=== PATIENT | male | born 1945 | race Caucasian/White ===

== ENCOUNTER 2016-10-16 09:11 | Outpatient (CLI) | payer OTHER | END 2016-10-16 09:12 | disposition home or self-care (01) | DX: I50.9 Heart failure, unspecified (principal); E66.9 Obesity, unspecified ==

== ENCOUNTER 2016-12-04 10:11 | Outpatient (CLI) | payer OTHER | END 2016-12-04 10:12 | disposition home or self-care (01) | DX: I50.9 Heart failure, unspecified (principal); E66.9 Obesity, unspecified ==

== ENCOUNTER 2017-01-09 10:56 | Outpatient (CLI) | payer OTHER | END 2017-01-09 10:57 | disposition home or self-care (01) | DX: I50.9 Heart failure, unspecified (principal); E66.9 Obesity, unspecified ==

== ENCOUNTER 2017-02-23 19:06 | Emergency (ER) | payer OTHER ==
--- NOTE | 2017-02-23 19:40 | ED Physician Documentation ---
History of Present Illness - Stated complaint Stated Complaint: NECK PX,LIGHT HEADED - Chief complaint Chief Complaint: General - History obtained from History obtained from: Patient, Family - History of Present Illness Timing: How many days ago (4) - Additonal information Additional information: for the past 4 weeks, has been feeling lightheaded and blurred vision in the afternoon. Usually lasts 30-45 minutes. Also has intermittent neck pain, described as tightness. Saw PCP on Saturday for same. Also intermittent headaches. 02/06 when the headache occurs. His blood pressure was 70-80 SBP when he had symptoms today. Review of Systems Ten Systems: 10 systems reviewed and negative Constitutional: denies: Fever, Chills Ears: denies: Ear pain Nose: denies: Rhinorrhea / runny nose, Congestion Respiratory: reports: Cough (chronic, unchanged.) GI: denies: Nausea, Vomiting, Diarrhea Skin: denies: Rash Neurologic: denies: Focal weakness, Numbness, Confused, Altered mental status, LOC PD PAST MEDICAL HISTORY - Past Medical History Cardiovascular: Hypertension, High cholesterol, Coronary artery disease, Atrial flutter Respiratory: Asthma, Sleep apnea Neuro: None Endocrine/Autoimmune: Type 2 diabetes GI: None : None HEENT: None Psych: None Musculoskeletal: None Derm: None - Past Surgical History Past Surgical History: No - Present Medications Home Medications: Ambulatory Orders Medication Instructions Recorded Confirmed Atorvastatin [Lipitor] 80 mg DAILY 12/16/14 02/23/17 Glipizide [Glipizide ER] 10 mg PO DAILY 12/16/14 02/23/17 Lisinopril 20 mg PO DAILY 12/16/14 02/23/17 Metformin HCl 1,000 mg PO BID 12/16/14 02/23/17 Warfarin [Coumadin] 5 mg PO DAILY 12/16/14 02/23/17 Amlodipine Besylate 10 mg PO DAILY 07/17/15 02/23/17 Spironolactone 50 mg PO DAILY 07/17/15 02/23/17 Metoprolol Tartrate 100 mg PO BID 12/01/15 02/23/17 Atorvastatin [Lipitor] 80 mg PO DAILY 02/23/17 02/23/17 - Allergies Allergies/Adverse Reactions: Allergies Allergy/AdvReac Type Severity Reaction Status Date / Time No Known Drug Allergies Allergy Verified 02/23/17 19:52 - Social History Does the pt smoke?: Yes Smoking Status: Current every day smoker Does the pt drink ETOH?: No Does the pt have substance abuse?: No - Immunizations Immunizations are current?: Yes - POLST Patient has POLST: No PD ED PE NORMAL - Vitals Vital signs reviewed: Yes - General General: Alert and oriented X 3, No acute distress, Well developed/nourished - HEENT HEENT: PERRL, Moist mucous membranes - Neck Neck: Supple, no meningeal sign - Cardiac Cardiac: RRR, Strong equal pulses - Respiratory Respiratory: No respiratory distress, Clear bilaterally - Abdomen Abdomen: Soft, Non tender, Non distended - Derm Derm: Warm and dry - Neuro Neuro: Alert and oriented X 3, recreation worker 2-12 intact, No motor deficit, No sensory deficit - Psych Psych: Normal mood, Normal affect Results - Vitals Vitals: Vital Signs - 24 hr 02/23/17 02/23/17 02/23/17 19:10 19:47 20:45 Temperature 36.3 C L Heart Rate 68 68 63 Respiratory 18 19 19 Rate Blood Pressure 106/86 H 106/58 L 105/56 L O2 Saturation 98 97 93 02/23/17 02/23/17 22:40 23:15 Temperature Heart Rate 76 71 Respiratory 20 23 Rate Blood Pressure 144/72 H 105/42 L O2 Saturation 96 95 Oxygen O2 Source Room air - EKG (time done) 2000 Rate: Rate (enter#) (66) Rhythm: Other (sinus arrhythmia) Mccleary: Normal Intervals: Normal [place] QRS: Normal Ischemia: Normal ST segments Computer interpretation: Agree with computer - Labs Labs: Laboratory Tests 02/23/17 02/23/17 02/23/17 19:50 19:50 19:50 WBC 9.7 RBC 3.65 L Hgb 11.8 L Hct 34.7 L MCV 95.0 H MCH 32.2 H MCHC 33.9 RDW 13.8 Plt Count 225 MPV 9.5 Neut # 5.8 Lymph # 2.6 Morris # 1.0 Eos # 0.3 Baso # 0.0 Absolute Nucleated RBC 0.00 Nucleated RBCs 0.0 PT 24.1 H INR 2.1 H Sodium 135 Potassium 4.4 Chloride 102 Carbon Dioxide 23 Anion Gap 10.0 BUN 35 H Creatinine 1.8 H Estimated GFR (MDRD) 38 L Glucose 185 H Calcium 9.2 Total Bilirubin 0.6 AST 20 ALT 32 Alkaline Phosphatase 76 Troponin I Total Protein 6.5 L Albumin 3.7 Globulin 2.8 Albumin/Globulin Ratio 1.3 Lipase 37 02/23/17 19:50 WBC RBC Hgb Hct MCV MCH MCHC RDW Plt Count MPV Neut # Lymph # Morris # Eos # Baso # Absolute Nucleated RBC Nucleated RBCs PT INR Sodium Potassium Chloride Carbon Dioxide Anion Gap BUN Creatinine Estimated GFR (MDRD) Glucose Calcium Total Bilirubin AST ALT Alkaline Phosphatase Troponin I < 0.04 Total Protein Albumin Globulin Albumin/Globulin Ratio Lipase - Rads (name of study) CT angio head Radiology: Prelim report reviewed, EMP read contemporaneously, See rad report ( No acute intracranial process or abnormal brain parenchymal enhancement. Patent dural venous sinuses. Small right internal carotid artery, consistent with proximal high-grade stenosis. Approximately 60?70 percent stenosis of the bilateral ICAs in the carotid siphons due to calcified plaque. Patent major intracranial arteries. ) CT angio neck Radiology: Prelim report reviewed, EMP read contemporaneously, See rad report ( Extensive extracranial atherosclerotic disease. Focal 90% stenosis of the right ICA origin at the carotid bifurcation due to atherosclerosis. . 60?70 percent stenosis of the origin of the left ICA at the carotid bifurcation. 80?90 percent stenosis at the origin of the right vertebral artery due to calcified plaque. . Proximally occluded left vertebral artery with distal reconstitution. The combination of #4 and #5 raise the possibility of vertebrobasilar insufficiency. ) PD MEDICAL DECISION MAKING - ED course Complexity details: reviewed results, re-evaluated patient, considered differential, d/w patient, d/w family, d/w nursing consultant ED course: 2229 - called [facility] and they state that they have no beds and no vasc surgery to consult 2244 D/ Dr. Peterson, vascular surgery at [facility]. Patient is a 71-year-old male who presents to the emergency department with intermittent dizziness, lightheadedness, blurred vision for the past 4 weeks. Today the episode lasted longer than usual. He was hypotensive at home during this episode. CT angiogram head and neck were performed with multiple stenotic areas. Reviewed these findings with Dr. Peterson, vascular surgeon who recommends that the patient follow-up as an outpatient. Recommends allowing him to run a little hypertensive for the next week or so and see if this helps his symptoms. He also recommends that the patient have a further cardiac workup including cardiac monitoring to monitor for possible arrhythmia during these events. Does not feel that the patient needs any acute interventions. Patient and are comfortable with this plan. Counseled the patient to stop smoking at length. Patient and family counseled regarding signs and symptoms for which I believe and urgent re-evaluation would be necessary. Patient with good understanding of and agreement to plan and is comfortable going home at this time This document was made in part using voice recognition software. While efforts are made to proofread this document, sound alike and grammatical errors may occur. Departure - Departure Disposition: Home, Self Care Clinical Impression: Carotid stenosis, right Hypotension Qualifiers: Hypotension type: unspecified hypotension type Qualified Code(s): I95.9 - Hypotension, unspecified Vertebral artery stenosis Qualifiers: Laterality: bilateral Qualified Code(s): I65.03 - Occlusion and stenosis of bilateral vertebral arteries Condition: Good Instructions: ED Hypotension All Causes Follow-Up: Nixon Peterson MD [Physician No Access] - (call for appointment) David Bhatia MD [Physician No Access] - Within 1 week Comments: Stop the amlodopine and we may need to decrease the metoprolol as well. You have an occluded left vertebral artery and a 90% occluded right vertebral artery. You also have a 90% stenosis of your right internal carotid artery. It is important that you follow up with vascular surgery. You will also need a heart monitor to evaluate for arrhythmias that could be causing your low blood pressure. I spoke with Dr. Nicholas mercado on the phone about you. Call for an appointment. Return if you worsen. Discharge Date/Time: 02/23/17 23:10
[2017-02-23] MEDS: SODIUM CHLORIDE 0.9% 1,000 ML IV ONE (20:10)
[2017-02-23 20:15] LABS: BASOPHILS % (AUTO) 0.5 %; EOSINOPHILS # (AUTO) 0.3 10^3/uL (0.0-0.7); HCT - HEMATOCRIT 34.7 % (42.0-52.0); HGB - HEMOGLOBIN 11.8 g/dL (14.0-18.0); LYMPHOCYTES # (AUTO) 2.6 10^3/uL (1.5-3.5); MEAN CORPUSCULAR HEMOGLOBIN 32.2 pg (27.0-31.0); MEAN CORPUSCULAR HGB CONC 33.9 g/dL (32.0-36.0); MEAN PLATELET VOLUME 9.5 fL (7.4-11.4); MONOCYTES % (AUTO) 9.9 %; NEUTROPHILS # (AUTO) 5.8 10^3/uL (1.5-6.6); NEUTROPHILS % (AUTO) 59.6 %; RED BLOOD COUNT 3.65 10^6/uL (4.70-6.10); RED CELL DISTRIBUTION WIDTH 13.8 % (12.0-15.0); UNCORRECTED WHITE BLOOD COUNT 9.7 x10^3/uL; WHITE BLOOD COUNT 9.7 x10^3/uL (4.8-10.8)
[2017-02-23 20:18] LABS: INR 2.1 (0.8-1.2); PT - PROTHROMBIN TIME 24.1 secs (9.9-12.6)
[2017-02-23 20:26] LABS: ALBUMIN/GLOBULIN RATIO 1.3 (1.0-2.2); BILIRUBIN,TOTAL 0.6 mg/dL (0.2-1.0); CALCIUM 9.2 mg/dL (8.5-10.3); CREATININE 1.8 mg/dL (0.6-1.2); POTASSIUM 4.4 mmol/L (3.5-5.0); TOTAL PROTEIN 6.5 g/dL (6.7-8.2)
[2017-02-23] MEDS: IOPAMIDOL-300 100 ML VIAL IVP ONE (21:20)
--- NOTE | 2017-02-23 22:15 | CT Report ---
EXAM: CT ANGIOGRAM HEAD HEAD CT WITH AND WITHOUT CONTRAST EXAM DATE: 02/23/2017 09:03 PM. CLINICAL HISTORY: Headache, blurred vision, dizzy. COMPARISON: None. TECHNIQUE: Routine helical CTA imaging was performed through the head. IV Contrast: Yes. Reconstructi ons: Routine multiplanar 3D MIP reconstructions. NASCET Criteria are used for stenosis measurements. In accordance with CT protocol optimization, one or more of the following dose reduction techniques w ere utilized for this exam: automated exposure control, adjustment of mA and/or KV based on patient s ize, or use of iterative reconstructive technique. FINDINGS: Anterior Circulation: The internal carotid arteries are patent from the superior cervical to the supr aclinoid portions. However, there is extensive calcified plaque throughout the bilateral carotid siph ons resulting in stenosis measuring up to 6070 percent bilaterally. Additionally, the right internal carotid artery is diffusely smaller caliber than the left, consistent with proximal high-grade steno sis. The bilateral A1, M1, and M2 segments are patent. The A2 segments fuse to form an azygous anteri or cerebral artery, a normal variant. No aneurysm is seen in the expected location of the anterior co mmunicating artery. Posterior Circulation: The bilateral V4 segments are patent. There is a probable right AICA/PICA vari ant. The left PICA is well demonstrated. The basilar artery is patent throughout its course and termi nus. There is normal contrast opacification in the superior cerebellar and posterior cerebral arterie s. Small bilateral posterior communicating arteries are present. There is normal contrast opacification in the dural venous sinuses. Other: On the contrast brain CT images, there is no acute intracranial hemorrhage, mass lesion, mass effect, or midline shift. There is mild generalized cerebral volume loss, in keeping with the patient 's age. The ventricles are midline without evidence of hydrocephalus. The johnson-white matter different iation is preserved and no hyperdense vessels are identified. The basal cisterns are widely patent. N o acute abnormality is seen in the posterior fossa. No abnormal brain parenchymal enhancement is appr eciated on the postcontrast brain CT images. Postsurgical changes from cataract extractions are noted in the globes. The paranasal and mastoid sin uses are unremarkable. The temporomandibular joints are well aligned. There is no acute calvarial fra cture or scalp hematoma. IMPRESSION: 1. No acute intracranial process or abnormal brain parenchymal enhancement. 2. Patent dural venous sinuses. 3. Small right internal carotid artery, consistent with proximal high-grade stenosis. 4. Approximately 6070 percent stenosis of the bilateral ICAs in the carotid siphons due to calcified plaque. 5. Patent major intracranial arteries. [facility] Referring Provider Line: [phone] SITE ID: [id number]
--- NOTE | 2017-02-23 22:22 | CT Preliminary Report ---
Exam: CT Neck Angio IMPRESSION: 1. Extensive extracranial atherosclerotic disease. 2. Focal 90% stenosis of the right ICA origin at the carotid bifurcation due to atherosclerosis. 3. 6070 percent stenosis of the origin of the left ICA at the carotid bifurcation. 4. 8090 percent stenosis at the origin of the right vertebral artery due to calcified plaque. 5. Proximally occluded left vertebral artery with distal reconstitution. The combination of #4 and #5 raise the possibility of vertebrobasilar insufficiency. [facility] SITE ID: [id number]
--- NOTE | 2017-02-23 22:25 | CT Report ---
EXAM: CT ANGIOGRAM NECK EXAM DATE: 02/23/2017 09:03 PM. CLINICAL HISTORY: Headache, blurred vision, dizzy. COMPARISON: None. TECHNIQUE: Routine axial helical imaging was performed from the skull base through the aortic arch. I V Contrast: Yes. Reconstructions: Routine multiplanar 3D MIP reconstructions. Evaluation of arterial stenosis is based on a NASCET method of measurement. In accordance with CT protocol optimization, one or more of the following dose reduction techniques w ere utilized for this exam: automated exposure control, adjustment of mA and/or KV based on patient s ize, or use of iterative reconstructive technique. FINDINGS: Right Carotid: The common, internal, and external carotid arteries are patent. Calcified and mild non calcified plaque is present at the carotid bifurcation resulting in stenosis of the origin of the int ernal carotid artery measuring greater than 90% (image 3-24, series 6). The remainder of the internal carotid artery is diffusely small in caliber throughout its course in the neck, consistent with prox imal hemodynamically significant stenosis. Left Carotid: The common, internal, and external carotid arteries are patent. Calcified plaque is pre sent at the carotid bifurcation resulting in approximately 60-70% stenosis of the origin of the inter nal carotid artery. Vertebrals: Calcified plaque is present at the origin of the right vertebral artery resulting in sten osis measuring 7080 percent (image 89, series 12). However, the remainder of the right cervical vert ebral artery is patent in the neck without hemodynamically stenosis. The left vertebral artery is occ luded from its origin and becomes reconstituted with contrast at C6, likely related to underlying sev ere atherosclerosis. The more distal cervical left vertebral artery is patent in the neck without add itional areas of hemodynamically significant stenosis. Other: Mild emphysematous changes are present in the visualized upper lungs. The airway is patent. Mo derate degenerative changes are present throughout the cervical spine. A 7 mm hypodense nodule is not ed in the mesial aspect of the posterior left thyroid lobe (image 203, series 6). No acute abnormalit y is seen in the remaining soft tissues of the neck. IMPRESSION: 1. Extensive extracranial atherosclerotic disease. 2. Focal 90% stenosis of the right ICA origin at the carotid bifurcation due to atherosclerosis. 3. 6070 percent stenosis of the origin of the left ICA at the carotid bifurcation. 4. 8090 percent stenosis at the origin of the right vertebral artery due to calcified plaque. 5. Proximally occluded left vertebral artery with distal reconstitution. The combination of #4 and #5 raise the possibility of vertebrobasilar insufficiency. [facility] Referring Provider Line: [phone] SITE ID: [id number]
[2017-02-23 23:16] VITALS: BP 105/42
== END 2017-02-23 23:10 | disposition home or self-care (01) ==
LOC: ED 19:06
DX: I65.21 Occlusion and stenosis of right carotid artery (principal); I65.03 Occlusion and stenosis of bilateral vertebral arteries; I10 Essential (primary) hypertension; I95.9 Hypotension, unspecified; E78.00 Pure hypercholesterolemia, unspecified; I25.10 Atherosclerotic heart disease of native coronary artery without angina pectoris; I48.92 Unspecified atrial flutter; Z79.01 Long term (current) use of anticoagulants; E11.9 Type 2 diabetes mellitus without complications; Z79.84 Long term (current) use of oral hypoglycemic drugs; J45.909 Unspecified asthma, uncomplicated; F17.200 Nicotine dependence, unspecified, uncomplicated
CPT/HCPCS: 36415; 70496; 70498; 80053; 83690; 84484; 85025; 85610; 93005; 93010; 99283; 99284

== ENCOUNTER 2017-03-14 10:31 | Outpatient (CLI) | payer OTHER ==
[2017-03-14 11:25] LABS: PT - PROTHROMBIN TIME 23.1 secs (9.9-12.6)
== END 2017-03-14 10:32 | disposition home or self-care (01) ==
LOC: LAB 10:31
PROVIDERS: ATTEND Internal Medicine
DX: I50.9 Heart failure, unspecified (principal)
CPT/HCPCS: 36415; 85610

== ENCOUNTER 2017-05-15 10:57 | Outpatient (CLI) | payer OTHER ==
[2017-05-15 12:30] LABS: INR 2.6 (0.8-1.2); PT - PROTHROMBIN TIME 29.4 secs (9.9-12.6)
== END 2017-05-15 10:58 | disposition home or self-care (01) ==
LOC: LAB 10:57
PROVIDERS: ATTEND Internal Medicine
DX: I50.9 Heart failure, unspecified (principal)
CPT/HCPCS: 36415; 85610

== ENCOUNTER 2017-07-25 10:49 | Outpatient (CLI) | payer OTHER ==
[2017-07-25 11:16] LABS: INR 2.9 (0.8-1.2); PT - PROTHROMBIN TIME 32.5 secs (9.9-12.6)
== END 2017-07-25 10:50 | disposition home or self-care (01) ==
LOC: LAB 10:49
PROVIDERS: ATTEND Internal Medicine
DX: I50.9 Heart failure, unspecified (principal); E66.9 Obesity, unspecified
CPT/HCPCS: 36415; 85610

== ENCOUNTER 2017-11-19 12:06 | Outpatient (CLI) | payer OTHER ==
[2017-11-19 17:44] LABS: INR 1.1 (0.8-1.2); PT - PROTHROMBIN TIME 12.1 secs (9.9-12.6)
== END 2017-11-19 12:07 | disposition home or self-care (01) ==
LOC: LAB.F 12:06
PROVIDERS: ATTEND Internal Medicine
DX: I50.9 Heart failure, unspecified (principal); E66.9 Obesity, unspecified
CPT/HCPCS: 36415; 85610

== ENCOUNTER 2017-12-13 14:54 | Outpatient (CLI) | payer OTHER ==
[2017-12-13 18:16] LABS: PT - PROTHROMBIN TIME 32.7 secs (9.9-12.6)
== END 2017-12-13 14:55 | disposition home or self-care (01) ==
LOC: LAB.F 14:54
PROVIDERS: ATTEND Internal Medicine
DX: I50.9 Heart failure, unspecified (principal); E66.9 Obesity, unspecified
CPT/HCPCS: 36415; 85610

== ENCOUNTER 2018-01-13 13:41 | Outpatient (CLI) | payer OTHER ==
[2018-01-13 19:07] LABS: INR 1.9 (0.8-1.2); PT - PROTHROMBIN TIME 21.1 secs (9.9-12.6)
== END 2018-01-13 13:42 | disposition home or self-care (01) ==
LOC: LAB.F 13:41
PROVIDERS: ATTEND Internal Medicine
DX: I48.2 Chronic atrial fibrillation (principal)
CPT/HCPCS: 36415; 85610

== ENCOUNTER 2018-04-30 08:45 | Outpatient (CLI) | payer OTHER ==
[2018-04-30 10:36] LABS: PT - PROTHROMBIN TIME 11.3 secs (9.9-12.6)
== END 2018-04-30 08:46 | disposition home or self-care (01) ==
LOC: LAB.F 08:45
PROVIDERS: ATTEND Internal Medicine
DX: I48.2 Chronic atrial fibrillation (principal)
CPT/HCPCS: 36415; 85610

== ENCOUNTER 2018-06-02 08:14 | Outpatient (CLI) | payer OTHER ==
[2018-06-02 08:30] LABS: INR 1.8 (0.8-1.2); PT - PROTHROMBIN TIME 20.3 secs (9.9-12.6)
== END 2018-06-02 08:15 | disposition home or self-care (01) ==
LOC: LAB 08:14
PROVIDERS: ATTEND Internal Medicine
DX: I48.2 Chronic atrial fibrillation (principal)
CPT/HCPCS: 36415; 85610

== ENCOUNTER 2018-06-03 15:47 | Emergency (ER) | payer OTHER ==
--- NOTE | 2018-06-03 16:30 | ED Physician Documentation ---
PD HPI SYNCOPE - Stated complaint Stated Complaint: LOW BP/HIGH HR - Chief complaint Chief Complaint: Cardiac - History obtained from History obtained from: Patient, Family () - History of Present Illness Witnessed: Witnessed (he started feeling lightheade last night and then continued with that this morning.He noted his heart rate to be from 110-130 and his blood pressure low at 80s systolic. He felt lightheade but not syncopal. Went to PCP who referred pt to ER via EMS for BP 80s systolic and HR 120s.) Duration: Hours Preceding symptoms: Palpitations, Light headed, Generalized weakness. No: Headache, Chest pain, Diaphoresis, Dyspnea, Abdominal pain, Nausea / vomiting Associated symptoms: Palpitations. No: Chest pain, Dyspnea, Nausea / vomiting Contributing factors: Recent med change (He did have a decrease in his metoprolol dose from 50 mg to 12.5 mg after having his pacemaker placed the end of March. He had been doing well without any fast heart rates and had a good blood pressure at 130s the past month. He just started with the lightheadedness and fast heart rate some last night and through the day today. He had been decreasing his Coumadin in preparation for changing to Xarelto or 1 of the other oral anticoagulants starting Saturday.) Injury occurred: No: Fell, Head injury, Neck injury Similar symptoms before: Has not had sx before (He does have history of atrial fibrillation episodes prior to this but had not felt low blood pressure and lightheaded with them before like he had today.) Recently seen: Other (He has a pacemaker placed the end of March within normal follow-up visit the end of April and no arrhythmias found on the interrogation. ) Review of Systems Constitutional: denies: Fever, Chills, Myalgias Eyes: denies: Decreased vision, Photophobia Nose: denies: Rhinorrhea / runny nose, Congestion Throat: denies: Sore throat Cardiac: reports: Palpitations, Pedal edema (mild). denies: Chest pain / pressure, Calf pain Respiratory: denies: Dyspnea, Cough, Wheezing GI: denies: Abdominal Pain, Nausea, Vomiting, Diarrhea : denies: Dysuria, Frequency Musculoskeletal: denies: Neck pain Neurologic: reports: Generalized weakness, Near syncope. denies: Focal weakness , Numbness, Syncope, Confused, Headache Immunocompromised: denies: Immunocompromised PD PAST MEDICAL HISTORY - Past Medical History Cardiovascular: Hypertension, High cholesterol, Coronary artery disease, Atrial flutter Respiratory: Asthma, Sleep apnea Endocrine/Autoimmune: Type 2 diabetes GI: None : None HEENT: None Psych: None Musculoskeletal: None Derm: None - Past Surgical History Past Surgical History: No - Present Medications Home Medications: Ambulatory Orders Medication Instructions Recorded Confirmed Glipizide [Glipizide ER] 10 mg PO DAILY 12/16/14 02/23/17 Lisinopril 20 mg PO DAILY 12/16/14 02/23/17 Warfarin [Coumadin] 5 mg PO DAILY 12/16/14 02/23/17 Amlodipine Besylate 10 mg PO DAILY 07/17/15 02/23/17 Spironolactone 50 mg PO DAILY 07/17/15 02/23/17 Metoprolol Tartrate 100 mg PO BID 12/01/15 02/23/17 Atorvastatin [Lipitor] 80 mg PO DAILY 02/23/17 02/23/17 Albuterol 06/03/18 Azelas/Fluticasone/Sod Chlorid 06/03/18 [Ticalast Nasal [place] Kit] Budesonide [Rhinocort Allergy] 06/03/18 - Allergies Allergies/Adverse Reactions: Allergies Allergy/AdvReac Type Severity Reaction Status Date / Time No Known Drug Allergies Allergy Verified 02/23/17 19:52 - Social History Does the pt smoke?: Yes Smoking Status: Current every day smoker Does the pt drink ETOH?: No Does the pt have substance abuse?: No - Immunizations Immunizations are current?: Yes - POLST Patient has POLST: No PD ED PE NORMAL - Vitals Vital signs reviewed: Yes (HR fast at 110-130, BP initially low at 95/63. IMproved with fluid) - General General: Alert and oriented X 3, Well developed/nourished - HEENT HEENT: Pharynx benign - Neck Neck: Supple, no meningeal sign, No adenopathy, No JVD - Cardiac Cardiac: No murmur. No: RRR (irrregular and varying rate 80-90 up to 120-130) - Respiratory Respiratory: Clear bilaterally - Abdomen Abdomen: Soft, Non tender - Back Back: No CVA TTP - Derm Derm: Normal color, Warm and dry - Extremities Extremities: No tenderness to palpate, Normal ROM s pain, No calf tenderness / cord, Other (1+ mild edema in both legs) - Neuro Neuro: Alert and oriented X 3, No motor deficit, No sensory deficit, Normal speech Eye Opening: Spontaneous Motor: Obeys Commands Verbal: Oriented GCS Score: 15 Results - Vitals Vitals: Vital Signs - 24 hr 06/03/18 06/03/18 15:56 17:20 Temperature 36.5 C Heart Rate 125 H 92 Respiratory 16 18 Rate Blood Pressure 121/65 95/63 O2 Saturation 100 98 Oxygen O2 Source Room air - EKG (time done) 16:08 Rate: Rate (enter#) (129) Rhythm: Atrial flutter [place]: Normal Intervals: Normal [place] QRS: Normal Ischemia: Normal ST segments. No: ST elevation c/w ischemia, ST depression Compare to prior EKG: Old EKG unavailable repeat Rhythm: Atrial flutter Ischemia: No: ST elevation c/w ischemia, ST depression Computer interpretation: Disagree with computer (I think it looks like flutter waves. ) - Labs Labs: Laboratory Tests 06/03/18 06/03/18 06/03/18 16:30 16:30 16:30 WBC 12.0 H RBC 4.66 L Hgb 14.9 Hct 42.4 MCV 90.9 MCH 32.1 H MCHC 35.3 RDW 13.9 Plt Count 202 MPV 9.7 Neut # (Auto) 8.9 H Lymph # (Auto) 1.9 [place] # (Auto) 1.0 Eos # (Auto) 0.2 Baso # (Auto) 0.1 Absolute Nucleated RBC 0.01 Nucleated RBC % 0.1 PT INR Sodium 130 L Potassium 3.7 Chloride 94 L Carbon Dioxide 28 Anion Gap 8.0 BUN 34 H Creatinine 2.2 H Estimated GFR (MDRD) 30 L Glucose 272 H Calcium 9.7 Magnesium Total Bilirubin 1.0 AST 15 ALT 33 Alkaline Phosphatase 90 Troponin I 0.21 B-Natriuretic Peptide Total Protein 7.2 Albumin 4.1 Globulin 3.1 Albumin/Globulin Ratio 1.3 Lipase 38 Urine Color Urine Clarity Urine pH Ur Specific [place] Urine Protein Urine Glucose (UA) Urine Ketones Urine Occult Blood Urine Nitrite Urine Bilirubin Urine Urobilinogen Ur Leukocyte Esterase Urine RBC Urine WBC Ur Squamous Epith Cells Urine Bacteria Urine Casts Ur Microscopic Review Urine Culture Comments 06/03/18 06/03/18 06/03/18 16:30 16:30 16:30 WBC RBC Hgb Hct MCV MCH MCHC RDW Plt Count MPV Neut # (Auto) Lymph # (Auto) [place] # (Auto) Eos # (Auto) Baso # (Auto) Absolute Nucleated RBC Nucleated RBC % PT 15.2 H INR 1.4 H Sodium Potassium Chloride Carbon Dioxide Anion Gap BUN Creatinine Estimated GFR (MDRD) Glucose Calcium Magnesium 2.2 Total Bilirubin AST ALT Alkaline Phosphatase Troponin I B-Natriuretic Peptide 302 H Total Protein Albumin Globulin Albumin/Globulin Ratio Lipase Urine Color Urine Clarity Urine pH Ur Specific [place] Urine Protein Urine Glucose (UA) Urine Ketones Urine Occult Blood Urine Nitrite Urine Bilirubin Urine Urobilinogen Ur Leukocyte Esterase Urine RBC Urine WBC Ur Squamous Epith Cells Urine Bacteria Urine Casts Ur Microscopic Review Urine Culture Comments 06/03/18 17:09 WBC RBC Hgb Hct MCV MCH MCHC RDW Plt Count MPV Neut # (Auto) Lymph # (Auto) [place] # (Auto) Eos # (Auto) Baso # (Auto) Absolute Nucleated RBC Nucleated RBC % PT INR Sodium Potassium Chloride Carbon Dioxide Anion Gap BUN Creatinine Estimated GFR (MDRD) Glucose Calcium Magnesium Total Bilirubin AST ALT Alkaline Phosphatase Troponin I B-Natriuretic Peptide Total Protein Albumin Globulin Albumin/Globulin Ratio Lipase Urine Color YELLOW Urine Clarity CLEAR Urine pH 5.5 Ur Specific [place] 1.020 Urine Protein 100 H Urine Glucose (UA) >=1000 H Urine Ketones NEGATIVE Urine Occult Blood NEGATIVE Urine Nitrite NEGATIVE Urine Bilirubin NEGATIVE Urine Urobilinogen 0.2 (NORMAL) Ur Leukocyte Esterase NEGATIVE Urine RBC None Seen Urine WBC 0-3 Ur Squamous Epith Cells NONE SEEN Urine Bacteria None Seen Urine Casts 6-10 Hyaline Casts Ur Microscopic Review INDICATED Urine Culture Comments NOT INDICATED - Rads (name of study) chest Radiology: Prelim report reviewed PD MEDICAL DECISION MAKING - ED course Complexity details: re-evaluated patient (The patient's heart rate was slow down with metoprolol IV doses 2. His heart rate is now more consistently in the 60-80 range. However does still look like atrial letter on the monitor. His blood pressure improved with IV fluids soon after arrival and he remains normotensive the rest of the ER stay. He had not been under hydrated and he has a low dose of beta-[place] orally at home. Is not clear why the fib flutter episode had such an effect on his blood pressure and caused a troponin bump. His pacemaker activity was also unusual to my view of it with the pacer spikes kicking in when he was at 120 or so on the monitor. It also looked like a wide complex at that point. However when I talked to Dr. Whitney the warehouse order puller she said it did not have overdrive pacing for his pacemaker some not really sure what was happening. I believe he needs to see cardiology in transfer to interrogate his pacer and have adjustments to his medications. Needs repeat troponin as well. He will likely need continued rate control and they can discuss rhythm control with him medication or electrically at [facility]. He is stable here now.), considered differential, d/w patient, d/w food consultant ( Dr. Whitney cardiology it systems analyst consultant and then I talked to the hospitalist for transfer.) - Sepsis Event Vital Signs: Vital Signs - 24 hr 06/03/18 06/03/18 15:56 17:20 Temperature 36.5 C Heart Rate 125 H 92 Respiratory 16 18 Rate Blood Pressure 121/65 95/63 O2 Saturation 100 98 Oxygen O2 Source Room air Departure - Departure Disposition: 02 Transfer Acute Care Hosp Clinical Impression: Atrial fibrillation/flutter, Transient hypotension, Status post biventricular pacemaker Condition: Stable Record reviewed to determine appropriate education?: Yes
[2018-06-03 16:39] LABS: BASOPHILS # (AUTO) 0.1 10^3/uL (0.0-0.1); BASOPHILS % (AUTO) 0.7 %; EOSINOPHILS # (AUTO) 0.2 10^3/uL (0.0-0.7); EOSINOPHILS % (AUTO) 1.3 %; HGB - HEMOGLOBIN 14.9 g/dL (14.0-18.0); LYMPHOCYTES # (AUTO) 1.9 10^3/uL (1.5-3.5); LYMPHOCYTES % (AUTO) 15.8 %; MEAN CORPUSCULAR HEMOGLOBIN 32.1 pg (27.0-31.0); MEAN CORPUSCULAR HGB CONC 35.3 g/dL (32.0-36.0); MEAN CORPUSCULAR VOLUME 90.9 fL (80.0-94.0); MEAN PLATELET VOLUME 9.7 fL (7.4-11.4); MONOCYTES % (AUTO) 8.5 %; NEUTROPHILS # (AUTO) 8.9 10^3/uL (1.5-6.6); NEUTROPHILS % (AUTO) 73.7 %; PLT - PLATELET COUNT 202 10^3/uL (130-450); RED BLOOD COUNT 4.66 10^6/uL (4.70-6.10); RED CELL DISTRIBUTION WIDTH 13.9 % (12.0-15.0)
[2018-06-03] MEDS ORDERED: SODIUM CHLORIDE 0.9% 1,000 ML IV ONE ×2 (16:53→19:13)
[2018-06-03] MEDS ORDERED: METOPROLOL 5 MG/5 ML VIAL IVP STA ×2 (16:53→18:02)
[2018-06-03 16:57] LABS: ALBUMIN 4.1 g/dL (3.2-5.5); ALBUMIN/GLOBULIN RATIO 1.3 (1.0-2.2); CALCIUM 9.7 mg/dL (8.5-10.3); CREATININE 2.2 mg/dL (0.6-1.2); TOTAL PROTEIN 7.2 g/dL (6.7-8.2)
[2018-06-03 17:18] LABS: INR 1.4 (0.8-1.2); PT - PROTHROMBIN TIME 15.2 secs (9.9-12.6)
--- NOTE | 2018-06-03 17:23 | XRAY Report ---
Reason: fast heart rate Procedure Date: 06/03/2018 Accession Number: [id number] / [id number] Procedure: XR - Chest 1 View X-Ray CPT Code: 00374 FULL RESULT: EXAM: CHEST RADIOGRAPHY EXAM DATE: 06/03/2018 05:08 PM. CLINICAL HISTORY: Fast heart rate. COMPARISON: 07/17/2015. TECHNIQUE: Upright AP view x2. FINDINGS: Lungs/Pleura: No focal opacities evident. No pleural effusion. No pneumothorax. Azygos fissure is noted on the right. Mediastinum: Within exam limitations, the cardiomediastinal contour is normal. Pacemaker electrodes are now present at the right atrial appendage and right ventricular apex. There is minimal aortic arch calcification. Other: None. IMPRESSION: 1. No evidence of active cardiopulmonary disease. 2. Dual-chamber cardiac pacemaker electrodes are now present. RADIA
[2018-06-03] MEDS ORDERED: POTASSIUM BICARB 25 MEQ TABLET PO STA (17:30)
[2018-06-03 17:41] LABS: BILIRUBIN,URINE NEGATIVE (NEGATIVE); GLUCOSE, URINE (UA) >=1000 mg/dL (NEGATIVE); KETONES,URINE (UA) NEGATIVE (NEGATIVE); LEUKOCYTE ESTERASE, URINE NEGATIVE (NEGATIVE); NITRITE,URINE NEGATIVE (NEGATIVE); OCCULT BLOOD,URINE NEGATIVE (NEGATIVE); PH,URINE 5.5 PH (5.0-7.5); PROTEIN,URINE 100 mg/dL (NEGATIVE); UROBILINOGEN,URINE 0.2 (NORMAL) E.U./dL (NORMAL)
[2018-06-03 17:45] LABS: CLARITY,URINE CLEAR (CLEAR)
[2018-06-03 17:54] LABS: BACTERIA,URINE None Seen /HPF (None Seen); CASTS, URINE 6-10 Hyaline Casts /LPF; RBC,URINE None Seen /HPF (0-5); SQUAMOUS EPITHELIAL CELL,UR NONE SEEN (<= Few)
[2018-06-03 19:36] VITALS: BP 118/62
== END 2018-06-03 21:20 | disposition short-term general hospital (02) ==
LOC: ED 15:47
DX: I48.91 Unspecified atrial fibrillation (principal); I48.92 Unspecified atrial flutter; I95.9 Hypotension, unspecified; E78.00 Pure hypercholesterolemia, unspecified; I25.10 Atherosclerotic heart disease of native coronary artery without angina pectoris; E11.9 Type 2 diabetes mellitus without complications; Z95.0 Presence of cardiac pacemaker; Z79.01 Long term (current) use of anticoagulants
CPT/HCPCS: 36415; 71045; 80053; 81001; 83690; 83735; 83880; 84484; 85025; 85610; 93005; 96361; 96374; 99284; A9270; 81003; 87086

== ENCOUNTER 2018-06-03 21:23 | Outpatient (CLI) | payer OTHER | END 2018-06-03 21:24 | disposition short-term general hospital (02) | LOC: EMS 21:23 | PROVIDERS: ATTEND Surgery | DX: I48.92 Unspecified atrial flutter (principal); I48.91 Unspecified atrial fibrillation; I95.9 Hypotension, unspecified; Z95.0 Presence of cardiac pacemaker ==

== ENCOUNTER 2019-12-22 17:49 | Emergency (ER) | payer OTHER ==
[2019-12-22] MEDS ORDERED: DILTIAZEM 50 MG/10 ML VIAL IVP ONE (18:07)
[2019-12-22] MEDS ORDERED: IOVERSOL 320 100 ML VIAL IVP ONE ×2 (18:07→18:29)
--- NOTE | 2019-12-22 18:07 | ED Physician Documentation ---
PD HPI HEADACHE - Stated complaint Stated Complaint: NI, RT EYE REDNESS - History obtained from History obtained from: Patient - History of Present Illness Timing - onset: How many days ago (3-4) Timing - onset during: Light activity Timing - duration: Hours Timing - details: Gradual onset (he has noted intermittent headache severe at times, in top of head and generally in head over the past 3-4 days. Has noted feeling of pressure as well. Noted his BP to be elevated when he took it a few of the times. Today was in the range of 210-110. Typically has lower BP. He is 11 days post-op CEA done in [facility]. With wound healing well and not signs of infection.), Intermittant Worst headache ever?: Worst headache ever? (no regular headaches in the past.) Location: Global Quality: Throbbing, Aching, Tightness. No: Thunderclap, Stabbing Associated symptoms: No: Fever, Stiff neck, Nausea, Weakness Improved by: Rest. No: Dark room Worsened by: No: Light, Moving Contributing factors: Anticoagulated, Hypertension (usually controlled). No: Recent illness, Trauma Recently seen: Surgery (December 10). No: Clinic (has appt coming up with vascular surgeon next week and equipment coordinator later this week. He had talked with visual education director Garbage Collector Driver today and referred to ER.) Review of Systems Constitutional: denies: Fever, Chills Eyes: reports: Other (noted red blood right eye today). denies: Loss of vision, Photophobia Nose: denies: Rhinorrhea / runny nose Throat: denies: Sore throat Respiratory: denies: Cough GI: denies: Nausea, Vomiting Neurologic: denies: Focal weakness Endocrine: reports: Easy bruising / bleeding. denies: Weight loss PD PAST MEDICAL HISTORY - Past Medical History Cardiovascular: Hypertension, High cholesterol, Coronary artery disease, Atrial flutter Respiratory: Asthma, Sleep apnea Endocrine/Autoimmune: Type 2 diabetes GI: None : None HEENT: None Psych: None Musculoskeletal: None Derm: None - Past Surgical History Past Surgical History: No - Present Medications Home Medications: Ambulatory Orders Medication Instructions Recorded Confirmed Glipizide [Glipizide ER] 10 mg PO DAILY 12/16/14 02/23/17 Lisinopril 20 mg PO DAILY 12/16/14 02/23/17 Warfarin [Coumadin] 5 mg PO DAILY 12/16/14 02/23/17 Amlodipine Besylate 10 mg PO DAILY 07/17/15 02/23/17 Spironolactone 50 mg PO DAILY 07/17/15 02/23/17 Metoprolol Tartrate 100 mg PO BID 12/01/15 02/23/17 Atorvastatin [Lipitor] 80 mg PO DAILY 02/23/17 02/23/17 Albuterol 06/03/18 Azelas/Fluticasone/Sod Chlorid 06/03/18 [Ticalast Nasal [place] Kit] Budesonide [Rhinocort Allergy] 06/03/18 - Allergies Allergies/Adverse Reactions: Allergies Allergy/AdvReac Type Severity Reaction Status Date / Time No Known Drug Allergies Allergy Verified 12/22/19 18:21 - Social History Does the pt smoke?: Yes Smoking Status: Current every day smoker Does the pt drink ETOH?: No Does the pt have substance abuse?: No - Immunizations Immunizations are current?: Yes - POLST Patient has POLST: No PD ED PE NORMAL - Vitals Vital signs reviewed: Yes - General General: Alert and oriented X 3, Well developed/nourished - HEENT HEENT: PERRL (right medial sclera with small subconjunctival hemorrhage. ), EOMI, Moist mucous membranes, Pharynx benign - Neck Neck: Supple, no meningeal sign, No adenopathy, Other (right neck with healig surgical scar without signs of infection. ) - Cardiac Cardiac: No: RRR (irregular but normal rate in 70s. Pacemaker noted left chest wall without tenderness. ) - Respiratory Respiratory: Clear bilaterally - Abdomen Abdomen: Soft, Non tender - Derm Derm: Normal color, Warm and dry - Extremities Extremities: No tenderness to palpate, Normal ROM s pain, No edema, No calf tenderness / cord - Neuro Neuro: Alert and oriented X 3, head of drama 2-12 intact, No motor deficit, No sensory deficit, Normal speech, Other Eye Opening: Spontaneous Motor: Obeys Commands Verbal: Oriented GCS Score: 15 Results - Vitals Vitals: Vital Signs - 24 hr 12/22/19 12/22/19 12/22/19 18:00 18:27 18:48 Temperature 36.8 C Heart Rate 98 78 72 Respiratory 16 16 16 Rate Blood Pressure 209/102 H 175/87 H 132/74 H O2 Saturation 98 98 98 12/22/19 12/22/19 20:02 20:03 Temperature 36.8 C Heart Rate 75 65 Respiratory 16 16 Rate Blood Pressure 122/74 141/74 H O2 Saturation 98 96 Oxygen O2 Source Room air - EKG (time done) 18:15 Rate: Rate (enter#) (73) Rhythm: Atrial fibrillation [place]: Normal Intervals: Normal [place] Ischemia: Normal ST segments. No: ST elevation c/w ischemia, ST depression - Labs Labs: Laboratory Tests 12/22/19 12/22/19 12/22/19 18:00 18:00 18:00 WBC 19.3 H RBC 4.06 L Hgb 13.1 L Hct 38.8 L MCV 95.6 H MCH 32.3 H MCHC 33.8 RDW 13.0 Plt Count 236 MPV 10.1 Neut # (Auto) Not Reportable Lymph # (Auto) Not Reportable [place] # (Auto) Not Reportable Eos # (Auto) Not Reportable Baso # (Auto) Not Reportable Absolute Nucleated RBC Not Reportable Total Counted 100 Band Neuts % (Manual) 0 Abnorm Lymph % (Manual) 0 Nucleated RBC % Not Reportable Neutrophils # (Manual) 16.2 H Lymphocytes # (Manual) 1.0 L Monocytes # (Manual) 2.1 H Eosinophils # (Manual) 0.0 Basophils # (Manual) 0.0 Differential Comment MANUAL DIFFERENTIAL Manual Slide Review Indicated WBC Morphology NORMAL APPEARANCE Platelet Estimate NORMAL (130-450,000) Platelet Morphology NORMAL APPEARANCE RBC Morph Micro Appear NORMAL APPEARANCE PT 20.6 H INR 1.9 H APTT 40.7 H Sodium 131 L Potassium 4.2 Chloride 97 L Carbon Dioxide 26 Anion Gap 8.0 BUN 27 H Creatinine 1.7 H Estimated GFR (MDRD) 40 L Glucose 284 H Calcium 9.1 Total Bilirubin 0.7 AST 15 ALT 26 Alkaline Phosphatase 84 Total Protein 6.5 L Albumin 3.6 Globulin 2.9 Albumin/Globulin Ratio 1.2 Lipase 98 H - Rads (name of study) head CT Radiology: Prelim report reviewed, Discussed with rads (no ICH), See rad report neck and head angio Radiology: Prelim report reviewed (CEA noted with flow. Small filling defect at proximal end, post operative change (cannot exclude thrombus). No aneurysm nor dissection.), See rad report PD MEDICAL DECISION MAKING - ED course Complexity details: considered differential (headache is improved either on its own or due to BP lowerig with IV Diltiazem. Feeling better.), d/w patient, d/w valuation consultant (Talked with visual education director Cardiology, who suggested increasing both Metoprolol and Lisinopril. Patient preferred to raise just one for concern of too low pressure. ) Departure - Departure Disposition: 01 Home, Self Care Clinical Impression: Status post carotid endarterectomy, Intermittent headache Hypertension Qualifiers: Hypertension type: unspecified Qualified Code(s): I10 - Essential (primary) hypertension Subconjunctival bleed Qualifiers: Laterality: right Qualified Code(s): H11.31 - Conjunctival hemorrhage, right eye Condition: Stable Record reviewed to determine appropriate education?: Yes Follow-Up: Jevon Hough MD [Primary Care Provider] - Jed López MD [Physician No Access] - Comments: Increase your metoprolol to 50 mg at night and maintain the 25 mg during the day. You might be able to increase your lisinopril as well if your blood pressure still fluctuates elevated. Use Tylenol 500 mg 4 times a day for the next several days to try to reduce the headaches. It is likely the headaches are associated with a high blood pressure at this time. Follow-up with your vascular surgeon and equipment coordinator regarding any further medication adjustments. Check your blood pressure 3-4 times a day for the next several days to see how it is doing through the day. Will be good to see what the pressure is even without the headache. You do not need to take it more often than that. Discharge Date/Time: 12/22/19 20:04
[2019-12-22 18:12] LABS: BASOPHILS % (AUTO) 0.4 %; EOSINOPHILS % (AUTO) 0.5 %; HGB - HEMOGLOBIN 13.1 g/dL (14.0-18.0); LYMPHOCYTES % (AUTO) 3.8 %; MEAN CORPUSCULAR HEMOGLOBIN 32.3 pg (27.0-31.0); MEAN CORPUSCULAR HGB CONC 33.8 g/dL (32.0-36.0); MEAN CORPUSCULAR VOLUME 95.6 fL (80.0-94.0); MEAN PLATELET VOLUME 10.1 fL (7.4-11.4); MONOCYTES % (AUTO) 10.2 %; NEUTROPHILS % (AUTO) 84.2 %; PLT - PLATELET COUNT 236 10^3/uL (130-450); RED BLOOD COUNT 4.06 10^6/uL (4.70-6.10); WHITE BLOOD COUNT 19.3 x10^3/uL (4.8-10.8)
[2019-12-22 18:14] LABS: ABNORMAL LYMPHS % (MANUAL) 0 %; BAND NEUTROPHILS % (MANUAL) 0 %
[2019-12-22] MEDS ORDERED: diltiaZEM INJ 5 MG/ML VIAL IVP STA (18:15)
[2019-12-22 18:17] LABS: INR 1.9 (0.8-1.2); PT - PROTHROMBIN TIME 20.6 secs (9.9-12.6)
[2019-12-22 18:23] LABS: ALBUMIN 3.6 g/dL (3.2-5.5); ALBUMIN/GLOBULIN RATIO 1.2 (1.0-2.2); BILIRUBIN,TOTAL 0.7 mg/dL (0.2-1.0); CALCIUM 9.1 mg/dL (8.5-10.3); CREATININE 1.7 mg/dL (0.6-1.2); TOTAL PROTEIN 6.5 g/dL (6.7-8.2)
[2019-12-22 18:25] LABS: PARTIAL THROMBOPLASTIN TIME 40.7 secs (24.9-33.3)
--- NOTE | 2019-12-22 18:31 | CT Report ---
Reason: s/p CEA 3/; headache for few days Procedure Date: 12/22/2019 Accession Number: [id number] / [id number] Procedure: CT - Head W/O Stroke Protocol CPT Code: Final Report FULL RESULT: EXAM: CT HEAD EXAM DATE: 12/22/2019 06:18 PM. CLINICAL HISTORY: S/p CEA 3/; headache for few days. COMPARISON: HEAD ANGIO 02/23/2017 9:02 PM. TECHNIQUE: Multiaxial CT images were obtained from the foramen magnum to the vertex. Reformats: Sagittal and coronal. IV contrast: None. In accordance with CT protocol optimization, one or more of the following dose reduction techniques were utilized for this exam: automated exposure control, adjustment of mA and/or KV based on patient size, or use of iterative reconstructive technique. FINDINGS: Parenchyma: No intraparenchymal hemorrhage. No evidence of mass, midline shift, or CT findings of acute infarction. Menendez-white differentiation is distinct. Extraaxial Spaces: Normal for age. No subdural or epidural collections identified. Ventricles: Normal in size and position. Sinuses and Orbits: Imaged paranasal sinuses, orbits, and mastoids show no significant abnormality. Bones: No evidence of fracture or calvarial defect. Other: None. IMPRESSION: 1. No acute intracranial process is identified RADIA The critical test notification system was initiated by Dr. Omer Garcia at 06:26 PM on 12/22/2019. The above critical test findings were discussed with Santy Jesus by Dr. Omer Garcia at 06:29 PM on 12/22/2019.
[2019-12-22 18:50] LABS: DIFFERENTIAL COMMENT MANUAL DIFFERENTIAL; LYMPHOCYTES % (MANUAL) 5 %; MONOCYTES # (MANUAL) 2.1 10^3/uL (0.0-1.0); PLATELET ESTIMATE, MANUAL NORMAL (130-450,000) (NORMAL); PLATELET MORPHOLOGY NORMAL APPEARANCE (NORMAL); RBC MORPHOLOGY (MULTIPLE) NORMAL APPEARANCE (NORMAL)
--- NOTE | 2019-12-22 19:17 | CT Report ---
Reason: L sided facial droop, L neck pain Procedure Date: 12/22/2019 Accession Number: [id number] / [id number] Procedure: CT - ANGIO NECK W CPT Code: Final Report FULL RESULT: EXAM: CT ANGIOGRAM NECK EXAM DATE: 12/22/2019 06:18 PM. CLINICAL HISTORY: Left sided facial droop, left neck pain. COMPARISON: HEAD ANGIO 02/23/2017 9:02 PM. TECHNIQUE: Routine axial helical imaging was performed from the skull base through the aortic arch. Reconstructions: Routine multiplanar 3D MIP reconstructions. IV Contrast: Optiray-320. Evaluation of arterial stenosis is based on a NASCET method of measurement. In accordance with CT protocol optimization, one or more of the following dose reduction techniques were utilized for this exam: automated exposure control, adjustment of mA and/or KV based on patient size, or use of iterative reconstructive technique. FINDINGS: Right Carotid: There has been a recent carotid endarterectomy. Gas is seen in the right neck. At the level of the proximal anastomosis there is a small filling defect measuring 4 x 3 mm along the anterolateral aspect of the vein patch. No significant stenosis is present in the cervical ICA. There is some irregularity of enhancement at the level of the patient's distal anastomosis. Left Carotid: There is a moderate amount of calcified atherosclerotic plaque involving the distal CCA and proximal cervical ICA. In addition there is noncalcified and partially calcified atherosclerotic plaque involving the CCA. There is a high-grade stenosis at the origin of the ECA. This is stable. There is a greater than 70% stenosis in the proximal cervical ICA which might well be slightly increased since the comparison study. Vertebrals: The right cervical vertebral artery is patent. There is moderate stenosis at its origin. 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 There is reconstitution at the level of its proximal V2 segment. This appearance is stable. Great vessel origins: Atherosclerotic plaque is seen in the transverse thoracic aorta. There is an at least moderate stenosis of the brachiocephalic artery origin as seen on the comparison study. There is artifact which somewhat obscures the great vessel origins. Mild narrowing is seen involving the origin of the left subclavian artery. Intracranial Circulation: The reader is referred to the CTA of the head performed today and dictated under separate cover. Other: Centrilobular emphysema is again seen in each upper lung. Incidental note is made of an azygos fissure in the right upper lobe, a common anatomic variant. There is a thyroid nodule on the right measuring up to 1.6 cm in size. On the comparison study this measured 1.5 cm in size. No subglottic stenosis is present. No mass is present in the left submandibular gland or in the left parotid gland. There are mildly enlarged lymph nodes in the left lower neck and in the supraclavicular region measuring up to 1.1 cm in size. These are new. There is ill-defined strandy change in the fat of the right neck both superficial and deep. This is seen centered at the level of the carotid bifurcation. Soft tissue gas is seen in the right neck. There are prominent lymph nodes lateral to the left submandibular gland measuring up to 1.1 cm short axis which might well be reactive in nature. Scattered degenerative disk disease and osteophyte formation are present. No mass is present in either orbit. Slight asymmetry of the nasopharynx could reflect asymmetric lymphoid hyperplasia. This is greater on the right relative to the left. A discrete mass is not present in the right parotid gland or in the right submandibular gland. IMPRESSION: 1. There has been interval carotid endarterectomy on the right with postsurgical change seen in the soft tissues at the level of the distal CCA and proximal cervical ICA. 2. No significant stenosis is seen in the CCA or cervical ICA on the right. 3. There is a small filling defect at the level of the proximal anastomosis which could reflect postsurgical change. A small amount of thrombus at the proximal anastomosis is not excluded. Irregularity at the level of the distal anastomosis in the proximal cervical ICA is likely postsurgical. 4. Slight increase in the degree of stenosis of the proximal cervical ICA on the left which is greater than 70% on the current study. 5. Again seen is an occluded proximal left vertebral artery with reconstitution at the level of its proximal V2 segment. 6. Again seen is stenosis involving the great vessel origins. 7. Again seen is centrilobular emphysema. 8. Mildly enlarged lymph nodes on the right might well be reactive in nature. 9. Mildly enlarged lymph nodes have developed in the left lower neck and supraclavicular region. Metastatic lymphadenopathy or lymphoproliferative disorder are not excluded. 10. Stable thyroid nodule on the right. RADIA
--- NOTE | 2019-12-22 19:36 | CT Report ---
Reason: L sided facial droop Procedure Date: 12/22/2019 Accession Number: [id number] / [id number] Procedure: CT - ANGIO HEAD W/WO CPT Code: Final Report FULL RESULT: EXAM: CT ANGIOGRAM HEAD. CT SCAN OF THE HEAD WITH CONTRAST. EXAM DATE: 12/22/2019 06:18 PM CLINICAL HISTORY: Left-sided facial droop. COMPARISON: CT angiogram head and neck 02/23/2017. CT angiogram neck from today. CT head without contrast from today. TECHNIQUE: - CT Scan Head: Using a multidetector scanner, axial images were acquired from the foramen magnum to the skull vertex following IV contrast administration. - CT Angiogram: Using a multidetector scanner, high-resolution axial images were acquired from the skull base through vertex following rapid infusion of intravenous contrast. Reformats: Multiplanar MIP reformats were reconstructed. NASCET criteria used for stenosis measurement. IV Contrast: 80 cc Optiray 320. In accordance with CT protocol optimization, one or more of the following dose reduction techniques were utilized for this exam: automated exposure control, adjustment of mA and/or KV based on patient size, or use of iterative reconstructive technique. FINDINGS: CT HEAD: No abnormal enhancement is present. CT ANGIOGRAM HEAD: No filling defect, high-grade stenosis, or occlusion is present in the proximal aspect of the major intracranial vessels. No saccular outpouching of contrast is seen to suggest an aneurysm. There is an anterior communicating artery present. The A1 segment right SONG is hypoplastic. A posterior communicating artery is present bilaterally. Mild to moderate narrowing is seen in the cavernous and paraclinoid ICA bilaterally due to atherosclerotic plaque. This is stable. Other: No mass is present in either orbit. IMPRESSION: CT Head: 1. No abnormal enhancement. CTA Head: 1. No filling defect, high-grade stenosis, or occlusion is present in the proximal aspect of the major intracranial vessels. RADIA
[2019-12-22 20:04] VITALS: BP 141/74
== END 2019-12-22 20:04 | disposition home or self-care (01) ==
LOC: ED 17:49
DX: R51 Headache (principal); I10 Essential (primary) hypertension; H11.31 Conjunctival hemorrhage, right eye; E11.9 Type 2 diabetes mellitus without complications; F17.200 Nicotine dependence, unspecified, uncomplicated; Z79.84 Long term (current) use of oral hypoglycemic drugs; Z98.890 Other specified postprocedural states
CPT/HCPCS: 36415; 70496; 70498; 80053; 83690; 85025; 85610; 85730; 93005; 96374; 99284; Q9967; 70450

== ENCOUNTER 2019-12-25 11:59 | Outpatient (CLI) | payer OTHER ==
[2019-12-25] MEDS ORDERED: IOVERSOL 320 100 ML VIAL IVP ONE ×2 (12:11→13:01)
[2019-12-25 12:41] LABS: ALBUMIN 3.2 g/dL (3.2-5.5); ALBUMIN/GLOBULIN RATIO 1.1 (1.0-2.2); BILIRUBIN,TOTAL 0.4 mg/dL (0.2-1.0); CALCIUM 8.8 mg/dL (8.5-10.3); CREATININE 1.7 mg/dL (0.6-1.2); TOTAL PROTEIN 6.2 g/dL (6.7-8.2)
--- NOTE | 2019-12-27 07:18 | CT Report ---
Reason: ABD BRUIT Procedure Date: 12/25/2019 Accession Number: [id number] / [id number] Procedure: CT - ANGIO ABDOMEN W/WO CPT Code: Final Report FULL RESULT: EXAM: CTA ABDOMEN AND PELVIS INDICATION: Aneurysm. Mass. TECHNIQUE: Following intravenous administration of 100 mL Optiray 320, axial sections were obtained through the abdomen and pelvis. Multiplanar 3D reconstructions are available for interpretation. In accordance with CT protocol optimization, one or more of the following dose reduction techniques were utilized for this exam: automated exposure control, adjustment of mA and/or KV based on patient size, or use of iterative reconstructive technique. COMPARISON: ABDOMEN/PELVIS W/ 07/17/2015 5:28 PM. FINDINGS: Vasculature: Severe atherosclerotic disease of the abdominal aorta and iliac arteries with no aneurysmal dilatation or dissection. Continuing on the right, there is between 50 and 70% stenosis of the right common iliac artery proximally and greater than 70% stenosis distally (series 9, image 69) and (series 4, image 136). There is approximately 50-70% stenosis in the mid right external iliac artery. There is greater than 70% stenosis in the right common femoral artery. Continuing on the left, there is 50% stenosis of the proximal left common iliac artery. There is greater than 90% stenosis at the origin of the left external and internal iliac arteries. There is greater than 90% stenosis in the mid left external iliac artery. There is greater than 90% stenosis in the left common femoral artery and origin of the left superficial femoral artery. 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 The proper hepatic and right and left hepatic arteries are opacified. There is 50% stenosis at the proximal aspect of the SMA. The vessels opacify distally. The CHARBEL is opacified. There is 5070% stenosis at the proximal aspect of the left renal artery and approximately 50% stenosis in the proximal aspect of the right renal artery. CT ABDOMEN AND PELVIS: The liver, spleen, adrenal glands, pancreas and gallbladder image normally. The kidneys enhance symmetrically. No bowel obstruction or inflammatory process associated with the bowel. No free air or fluid in the abdomen or pelvis. The appendix images normally. The bladder is unremarkable. IMPRESSION: 1. 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 2. No aneurysm identified. 3. 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 4. No abdominal or pelvic mass identified. No lymphadenopathy. RADIA
--- NOTE | 2019-12-27 07:18 | CT Report ---
Reason: PER TECH/HAD RECENT CONTRAST Procedure Date: 12/25/2019 Accession Number: [id number] / [id number] Procedure: CT - ANGIO PELVIS W/WO CPT Code: Final Report FULL RESULT: EXAM: CTA ABDOMEN AND PELVIS INDICATION: Aneurysm. Mass. TECHNIQUE: Following intravenous administration of 100 mL Optiray 320, axial sections were obtained through the abdomen and pelvis. Multiplanar 3D reconstructions are available for interpretation. In accordance with CT protocol optimization, one or more of the following dose reduction techniques were utilized for this exam: automated exposure control, adjustment of mA and/or KV based on patient size, or use of iterative reconstructive technique. COMPARISON: ABDOMEN/PELVIS W07/17/2015 5:28 PM. FINDINGS: Vasculature: Severe atherosclerotic disease of the abdominal aorta and iliac arteries with no aneurysmal dilatation or dissection. Continuing on the right, there is between 50 and 70% stenosis of the right common iliac artery proximally and greater than 70% stenosis distally (series 9, image 69) and (series 4, image 136). There is approximately 50-70% stenosis in the mid right external iliac artery. There is greater than 70% stenosis in the right common femoral artery. Continuing on the left, there is 50% stenosis of the proximal left common iliac artery. There is greater than 90% stenosis at the origin of the left external and internal iliac arteries. There is greater than 90% stenosis in the mid left external iliac artery. There is greater than 90% stenosis in the left common femoral artery and origin of the left superficial femoral artery. 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 The proper hepatic and right and left hepatic arteries are opacified. There is 50% stenosis at the proximal aspect of the SMA. The vessels opacify distally. The CHARBEL is opacified. There is 5070% stenosis at the proximal aspect of the left renal artery and approximately 50% stenosis in the proximal aspect of the right renal artery. CT ABDOMEN AND PELVIS: The liver, spleen, adrenal glands, pancreas and gallbladder image normally. The kidneys enhance symmetrically. No bowel obstruction or inflammatory process associated with the bowel. No free air or fluid in the abdomen or pelvis. The appendix images normally. The bladder is unremarkable. IMPRESSION: 1. 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 2. No aneurysm identified. 3. 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 4. No abdominal or pelvic mass identified. No lymphadenopathy. RADIA
== END 2019-12-25 12:00 | disposition home or self-care (01) ==
LOC: DI 11:59
PROVIDERS: ATTEND Nurse Practitioner Family
DX: I70.0 Atherosclerosis of aorta (principal); I70.8 Atherosclerosis of other arteries; R09.89 Other specified symptoms and signs involving the circulatory and respiratory systems; I70.1 Atherosclerosis of renal artery
CPT/HCPCS: 36415; 74174; 80053; Q9967; 72191; 74175

== ENCOUNTER 2020-03-15 14:35 | Outpatient (CLI) | payer OTHER ==
--- NOTE | 2020-03-15 17:16 | Ultrasound Report ---
PROCEDURE: Ankle Brachial Index INDICATIONS: PAIN IN LT TOES TECHNIQUE: Ankle-brachial indices were obtained bilaterally and recorded. COMPARISONS: None. FINDINGS: Right arm blood pressure to 19/103, right ankle 106/78 Right ankle brachial index (MARCELA): 0.44 Left ankle brachial index (MARCELA): 0.45 Common femoral artery: 115 cm/s biphasic waveform Profunda artery: 48 cm/s, biphasic waveform Proximal superficial femoral artery: 107 m/s, monophasic waveform Mid superficial femoral artery: 96 cm/s, monophasic waveform distal superficial femoral artery: 60 cm /s, monophasic waveform Popliteal artery: 41 cm/s, monophasic waveform posterior tibial artery, 34 cm/s, monophasic waveform Anterior tibial artery/dorsalis pedis: 98/60 2 cm/s, monophasic waveform Calcified plaque is noted throughout the arteries. Healing potential: Ankle pressures >55 mm Hg in non-diabetics and >80 mm Hg in diabetics are likely to achieve primary h ealing of ischemic foot ulcers. Toe pressures >30 mm Hg are likely to achieve primary healing of ischemic foot ulcers, toe or transme tatarsal amputations. IMPRESSION: 1. Ankle brachial indexes bilaterally are less than 0.5 indicative of severe arterial disease. 2. Prominent vascular artery calcifications as well as monophasic waveforms. Reviewed by: Maureen Fox MD on 03/15/2020 5:15 PM PDT Approved by: Maureen Fox MD on 03/15/2020 5:15 PM PDT Station ID: [id number]
--- NOTE | 2020-03-15 17:18 | Ultrasound Report ---
PROCEDURE: Duplex Lwr Ext Arterial LT INDICATIONS: PX IN L TOES TECHNIQUE: Color and pulse Doppler interrogation was performed of the left lower extremity arterial system, with image documentation. COMPARISON: Ultrasound MARCELA 03/15/2020 FINDINGS: Common femoral artery: 115 cm/sec, with biphasic flow. Deep femoral artery: 48 cm/sec, with biphasic flow. Proximal superficial femoral artery: 107 cm/sec, with monophasic flow. Mid superficial femoral artery: 96 cm/sec, with monophasic flow. Distal superficial femoral artery: 60 cm/sec, with monophasic flow. Popliteal artery: 41 cm/sec, with monophasic flow. Posterior tibial artery: 34 cm/sec, with monophasic flow. Anterior tibial artery/dorsalis pedis: 98/62 cm/sec, with monophasic flow. Menendez-scale imaging description: Prominent calcified plaque. IMPRESSION: 1. Significant plaque and monophasic flow consistent with severe, diffuse vascular disease. Reviewed by: Maureen Fox MD on 03/15/2020 5:16 PM PDT Approved by: Maureen Fox MD on 03/15/2020 5:16 PM PDT Station ID: [id number]
== END 2020-03-15 14:36 | disposition home or self-care (01) ==
LOC: DI 14:35
PROVIDERS: ATTEND Nurse Practitioner Family
DX: I70.202 Unspecified atherosclerosis of native arteries of extremities, left leg (principal)
CPT/HCPCS: 93922

== ENCOUNTER 2020-04-09 20:07 | Outpatient (CLI) | payer OTHER | END 2020-04-09 20:08 | disposition EMS.NT | LOC: EMS 20:07 | PROVIDERS: ATTEND Surgery | DX: R09.89 Other specified symptoms and signs involving the circulatory and respiratory systems (principal) ==

== ENCOUNTER 2021-01-18 17:42 | Emergency (ER) | payer OTHER ==
--- OUTSIDE RECORDS SUMMARY | 2021-01-18 17:57 | EXTERNAL MEDICAL SUMMARY RPT | Continuity of Care Document ---
:1945 Demographics Phone Unavailable Preferred Language Unknown Marital Status Unknown Catholic Affiliation Unknown Race Unknown Ethnic Group Unknown Author Organization [place] Address [address] [id number] Phone Social History date description facility [id number]
[2021-01-18 18:22] LABS: BASOPHILS # (AUTO) 0.1 10^3/uL (0.0-0.1); BASOPHILS % (AUTO) 0.8 %; EOSINOPHILS # (AUTO) 0.2 10^3/uL (0.0-0.7); EOSINOPHILS % (AUTO) 2.9 %; HCT - HEMATOCRIT 34.3 % (42.0-52.0); HGB - HEMOGLOBIN 11.7 g/dL (14.0-18.0); LYMPHOCYTES # (AUTO) 1.1 10^3/uL (1.5-3.5); LYMPHOCYTES % (AUTO) 17.6 %; MEAN CORPUSCULAR HEMOGLOBIN 32.2 pg (27.0-31.0); MEAN CORPUSCULAR HGB CONC 34.1 g/dL (32.0-36.0); MEAN CORPUSCULAR VOLUME 94.5 fL (80.0-94.0); MEAN PLATELET VOLUME 9.8 fL (7.4-11.4); MONOCYTES # (AUTO) 0.6 10^3/uL (0.0-1.0); MONOCYTES % (AUTO) 9.8 %; NEUTROPHILS # (AUTO) 4.3 10^3/uL (1.5-6.6); NEUTROPHILS % (AUTO) 68.6 %; PLT - PLATELET COUNT 167 10^3/uL (130-450); RED BLOOD COUNT 3.63 10^6/uL (4.70-6.10); WHITE BLOOD COUNT 6.2 x10^3/uL (4.8-10.8)
[2021-01-18 18:40] LABS: ALBUMIN 3.5 g/dL (3.2-5.5); ALBUMIN/GLOBULIN RATIO 1.2 (1.0-2.2); BILIRUBIN,TOTAL 0.7 mg/dL (0.2-1.0); CREATININE 1.8 mg/dL (0.6-1.2); POTASSIUM 4.5 mmol/L (3.5-5.0); TOTAL PROTEIN 6.4 g/dL (6.7-8.2)
--- NOTE | 2021-01-18 18:57 | XRAY Report ---
PROCEDURE: Chest 1 View X-Ray INDICATIONS: Chest Pain TECHNIQUE: One view of the chest was acquired. COMPARISON: CXR 06/03/2018. FINDINGS: Surgical changes and devices: Left pacemaker with right atrial and right ventricular leads. Lungs and pleura: No pleural effusions or pneumothorax. No consolidation. Suspect emphysematous thakur ge. Mediastinum: Mediastinal contours appear normal. Heart size is normal. Bones and chest wall: No suspicious bony lesions. Overlying soft tissues appear unremarkable. IMPRESSION: No acute cardiopulmonary abnormality. Reviewed by: Ryan Terry MD on 01/18/2021 6:56 PM PDT Approved by: Ryan Terry MD on 01/18/2021 6:56 PM PDT Station ID: [id number]
[2021-01-18] MEDS ORDERED: hydrALAZINE INJ 20 MG/ML VIAL IVP STA (19:00)
--- NOTE | 2021-01-18 19:03 | ED Physician Documentation ---
History of Present Illness - Stated complaint Stated Complaint: HBP/LIGHTHEADED - Chief complaint Chief Complaint: Cardiac - History obtained from History obtained from: Patient, Family - History of Present Illness Timing: Today Pain level max: 0 Pain level now: 0 - Additonal information Additional information: 75-year-old male presents to the emergency department with hypertension today. Has a longstanding history of intermittent hypertension. He states he took his as needed clonidine without relief. No chest pain. No shortness of breath. He did feel slightly lightheaded earlier. No numbness or tingling. Nothing makes it better or worse. No abdominal pain. No nausea or vomiting. Review of Systems Ten Systems: 10 systems reviewed and negative Constitutional: denies: Fever, Chills Ears: denies: Ear pain Nose: denies: Rhinorrhea / runny nose, Congestion Throat: denies: Sore throat Cardiac: denies: Chest pain / pressure, Palpitations, Calf pain Respiratory: denies: Dyspnea, Cough, Hemoptysis, Wheezing GI: denies: Abdominal Pain, Nausea, Vomiting, Diarrhea : denies: Dysuria Skin: denies: Rash Musculoskeletal: denies: Neck pain, Back pain Neurologic: denies: Headache PD PAST MEDICAL HISTORY - Past Medical History Cardiovascular: Hypertension, High cholesterol, Coronary artery disease, Peripheral Vascular Disease, Atrial fibrillation, Arrhythmia Respiratory: Asthma, Sleep apnea, CPAP use Endocrine/Autoimmune: Type 2 diabetes GI: GERD, Colon polyps, Chronic constipation : Benign prostate hypertrophy HEENT: None Psych: None Musculoskeletal: None Derm: None - Past Surgical History Past Surgical History: No General: Colonoscopy Cardiovascular: Pacemaker, Other Neuro: Other - Present Medications Home Medications: Ambulatory Orders Medication Instructions Recorded Confirmed Glipizide [Glipizide ER] 10 mg PO DAILY 12/16/14 12/01/20 Lisinopril 20 mg PO DAILY 12/16/14 12/01/20 Atorvastatin [Lipitor] 80 mg PO DAILY 02/23/17 12/01/20 Albuterol Sulfate [Proair Hfa 1 - 2 puffs INH Q4H PRN 12/01/20 12/01/20 Inhaler] Alogliptin Benzoate [Alogliptin] 25 mg PO DAILY 12/01/20 12/01/20 Apixaban [Eliquis] 5 mg PO BID 12/01/20 12/01/20 Azelastine HCl 2 spray NS BID 12/01/20 12/01/20 Budesonide/Formoterol Fumarate 2 puffs IH DAILY 12/01/20 12/01/20 [Symbicort 160-4.5 Mcg Inhaler] Carvedilol [Coreg] 25 mg PO BID 12/01/20 12/01/20 Docusate Sodium [Dulcolax Stool 100 mg PO BID PRN 12/01/20 12/01/20 Softener] Flecainide [Tambocar] 50 mg PO Q12H 12/01/20 12/01/20 Furosemide [Lasix] 40 mg PO DAILY PRN 12/01/20 12/01/20 Gabapentin [Neurontin] 400 mg PO BID 12/01/20 12/01/20 Ipratropium [Atrovent] 1 puffs INH DAILY 12/01/20 12/01/20 Montelukast [Singulair] 10 mg PO QPM 12/01/20 12/01/20 Sitagliptin Phosphate [Januvia] 50 mg PO DAILY 12/01/20 12/01/20 Tamsulosin [Flomax] 0.4 mg PO DAILY 12/01/20 12/01/20 buPROPion HCL [Bupropion HCl Sr] 150 mg PO BID 12/01/20 12/01/20 cloNIDine [Catapres] 0.1 mg PO QID PRN 12/01/20 12/01/20 - Allergies Allergies/Adverse Reactions: Allergies Allergy/AdvReac Type Severity Reaction Status Date / Time No Known Drug Allergies Allergy Verified 01/18/21 17:54 - Social History Does the pt smoke?: Yes Smoking Status: Current every day smoker Does the pt drink ETOH?: No Does the pt have substance abuse?: No - Immunizations Immunizations are current?: Yes - POLST Patient has POLST: No PD ED PE NORMAL - Vitals Vital signs reviewed: Yes - General General: Alert and oriented X 3, No acute distress - HEENT HEENT: Moist mucous membranes - Neck Neck: Supple, no meningeal sign - Cardiac Cardiac: RRR, Strong equal pulses - Respiratory Respiratory: No respiratory distress, Clear bilaterally - Abdomen Abdomen: Soft, Non tender, Non distended - Derm Derm: Warm and dry - Extremities Extremities: No edema - Neuro Neuro: Alert and oriented X 3 - Psych Psych: Normal mood, Normal affect Results - Vitals Vitals: Vital Signs - 24 hr 01/18/21 01/18/21 17:50 19:34 Temperature 36.4 C L Heart Rate 59 L 60 Respiratory 20 17 Rate Blood Pressure 235/94 H 149/77 H O2 Saturation 100 99 Oxygen O2 Source Room air - EKG (time done) 1815 Rate: Rate (enter#) (61) Rhythm: Paced (atrial) QRS: Normal Ischemia: Normal ST segments - Labs Labs: Laboratory Tests 01/18/21 01/18/21 01/18/21 18:16 18:16 18:16 WBC 6.2 RBC 3.63 L Hgb 11.7 L Hct 34.3 L MCV 94.5 H MCH 32.2 H MCHC 34.1 RDW 13.0 Plt Count 167 MPV 9.8 Neut # (Auto) 4.3 Lymph # (Auto) 1.1 L [place] # (Auto) 0.6 Eos # (Auto) 0.2 Baso # (Auto) 0.1 Absolute Nucleated RBC 0.00 Nucleated RBC % 0.0 Sodium 136 Potassium 4.5 Chloride 100 L Carbon Dioxide 27 Anion Gap 9.0 BUN 31 H Creatinine 1.8 H Estimated GFR (MDRD) 37 L Glucose 234 H Calcium 9.0 Total Bilirubin 0.7 AST 15 ALT 32 Alkaline Phosphatase 113 Troponin I High Sens 12.1 Total Protein 6.4 L Albumin 3.5 Globulin 2.9 Albumin/Globulin Ratio 1.2 Lipase 34 - Rads (name of study) cxr Radiology: Prelim report reviewed, EMP read contemporaneously, See rad report (No acute cardiopulmonary abnormality. ) PD MEDICAL DECISION MAKING - ED course Complexity details: reviewed results, re-evaluated patient, considered differential, d/w patient, d/w family ED course: 75-year-old male with hypertension today. Given a single dose of hydralazine. Blood pressure decreased. Patient states his lightheadedness resolved and he feels better. No other acute abnormalities. 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 Patient and family counseled regarding signs and symptoms for which I believe and urgent re-evaluation would be necessary. Patient with good understanding of and agreement to plan and is comfortable going home at this time This document was made in part using voice recognition software. While efforts are made to proofread this document, sound alike and grammatical errors may occur. Departure - Departure Disposition: 01 Home, Self Care Clinical Impression: Hypertension Qualifiers: Hypertension type: unspecified Qualified Code(s): I10 - Essential (primary) hypertension Condition: Good Instructions: ED HTN Established Follow-Up: Jevon Hough MD [Primary Care Provider] - Within 1 week Comments: Your blood pressure has decreased today in the emergency department. Please follow-up with your doctor for further care. Return if you worsen. I would talk to his vascular surgeon about reevaluating his renal arteries. These may be at a location where they may be able to stent the stenosis of the arteries. They will likely need newer imaging if they have not done this already. This may help to control his blood pressure. Again this will be a decision that is a vascular surgeon will need to make if this will help him or not. CT angiogram of the abdomen pelvis from 12/25/2019 FINDINGS: Vasculature: Severe atherosclerotic disease of the abdominal aorta and iliac arteries with no aneurysmal dilatation or dissection. Continuing on the right, there is between 50 and 70% stenosis of the right common iliac artery proximally and greater than 70% stenosis distally (series 9, image 69) and (series 4, image 136). There is approximately 50-70% stenosis in the mid right external iliac artery. There is greater than 70% stenosis in the right common femoral artery. Continuing on the left, there is 50% stenosis of the proximal left common iliac artery. There is greater than 90% stenosis at the origin of the left external and internal iliac arteries. There is greater than 90% stenosis in the mid left external iliac artery. There is greater than 90% stenosis in the left common femoral artery and origin of the left superficial femoral artery. 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 The proper hepatic and right and left hepatic arteries are opacified. There is 50% stenosis at the proximal aspect of the SMA. The vessels opacify distally. The CHARBEL is opacified. There is 50-70% stenosis at the proximal aspect of the left renal artery and approximately 50% stenosis in the proximal aspect of the right renal artery. CT ABDOMEN AND PELVIS: The liver, spleen, adrenal glands, pancreas and gallbladder image normally. The kidneys enhance symmetrically. No bowel obstruction or inflammatory process associated with the bowel. No free air or fluid in the abdomen or pelvis. The appendix images normally. The bladder is unremarkable. IMPRESSION: 1. 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 2. No aneurysm identified. 3. 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 4. No abdominal or pelvic mass identified. No lymphadenopathy. Discharge Date/Time: 01/18/21 19:57
[2021-01-18 19:34] VITALS: BP 149/77
== END 2021-01-18 19:57 | disposition home or self-care (01) ==
LOC: ED 17:42
DX: I10 Essential (primary) hypertension (principal); I70.1 Atherosclerosis of renal artery; I48.91 Unspecified atrial fibrillation; Z79.01 Long term (current) use of anticoagulants; Z95.0 Presence of cardiac pacemaker; E11.9 Type 2 diabetes mellitus without complications; Z79.84 Long term (current) use of oral hypoglycemic drugs; F17.200 Nicotine dependence, unspecified, uncomplicated
CPT/HCPCS: 36415; 80053; 83690; 84484; 85025; 93005; 96374; 99284

== ENCOUNTER 2021-02-13 07:54 | Day surgery (SDC) | payer OTHER ==
[2021-02-13] MEDS ORDERED: LACTATED RINGERS 1,000 ML IV ONE ×2 (08:35→11:07)
--- NOTE | 2021-02-13 09:15 | ANESTHESIA ---
Pre-Anesthesia VS, & Labs - Diagnosis screening exam - Procedure colonoscopy Vital Signs: Temp Pulse Resp BP Pulse Ox 36 C L 70 16 104/81 H 100 02/13/21 08:17 02/13/21 08:17 02/13/21 08:17 02/13/21 08:17 02/13/21 08:17 Height: 6 ft 1 in Weight (kg): 74 kg Body Mass Index: 21.5 BMI Classification: Healthy weight - NPO >8 hours - Lab Results Current Lab Results: Laboratory Tests 02/13/21 08:32: POC Whole Bld Glucose 179 H Home Medications and Allergies Glipizide [Glipizide ER] 10 mg PO DAILY 12/16/14 Lisinopril 20 mg PO DAILY 12/16/14 Atorvastatin [Lipitor] 80 mg PO DAILY 02/23/17 Albuterol Sulfate [Proair Hfa Inhaler] 1 - 2 puffs INH Q4H PRN 12/01/20 Alogliptin Benzoate [Alogliptin] 25 mg PO DAILY 12/01/20 Apixaban [Eliquis] 5 mg PO BID 12/01/20 Azelastine HCl 2 spray NS BID 12/01/20 Budesonide/Formoterol Fumarate [Symbicort 160-4.5 Mcg Inhaler] 2 puffs IH DAILY 12/01/20 Carvedilol [Coreg] 25 mg PO BID 12/01/20 Docusate Sodium [Dulcolax Stool Softener] 100 mg PO BID PRN 12/01/20 Flecainide [Tambocar] 50 mg PO Q12H 12/01/20 Furosemide [Lasix] 40 mg PO DAILY PRN 12/01/20 Gabapentin [Neurontin] 400 mg PO BID 12/01/20 Ipratropium [Atrovent] 1 puffs INH DAILY 12/01/20 Montelukast [Singulair] 10 mg PO QPM 12/01/20 Sitagliptin Phosphate [Januvia] 50 mg PO DAILY 12/01/20 Tamsulosin [Flomax] 0.4 mg PO DAILY 12/01/20 buPROPion HCL [Bupropion HCl Sr] 150 mg PO BID 12/01/20 cloNIDine [Catapres] 0.1 mg PO QID PRN 12/01/20 Allergies/Adverse Reactions: Allergies Allergy/AdvReac Type Severity Reaction Status Date / Time metformin AdvReac affects Verified 02/06/21 10:56 liver Anes History & Medical History - Medical History Cardiovascular: reports: Hypertension, High cholesterol, Peripheral Vascular Disease, Atrial fibrillation, Arrhythmia Pulmonary: reports: Asthma, Sleep apnea, CPAP use Gastrointestinal: reports: GERD, Colon polyps, Chronic constipation Urinary: reports: Benign prostate hypertrophy Neuro: reports: None Musculoskeletal: reports: None Endocrine/Autoimmune: reports: Type 2 diabetes Blood Disorders: reports: None Skin: reports: None Smoking Status: Current every day smoker Psychosocial: reports: Other (PTSD) History of Cancer?: Yes (bladder cancer) - Surgical History General: reports: Colonoscopy Cardiothoracic: reports: Pacemaker, Other (ablation) Urologic: reports: Bladder surgery Neurologic: reports: Other Other Past Surgical History: Right CEA Exam General: Alert, Oriented x3, Cooperative, No acute distress Dental: Dentures full Upper, Partials Lower Mouth Openin Fingerbreadth Neck Mobility: Normal Mallampati classification: II Thyromental Distance: 4-6 cm Mental/Cognitive Status: Alert/Oriented X3, Normal for patient Plan Anesthesia Type: Total IV Consent for Procedure(s) Verified and Reviewed: Yes Code Status: Attempt Resuscitation ASA classification: 3-Severe systemic disease Is this case an emergency?: No
--- NOTE | 2021-02-13 11:21 | ANESTHESIA POST OP EVALUATION ---
Anesthesia Post Eval - Post Anesthesia Eval Vitals: Last Vital Signs Temp 36.6 C 02/13/21 11:14 Pulse 64 02/13/21 11:14 Resp 18 02/13/21 11:14 BP 97/65 02/13/21 11:14 Pulse Ox 100 02/13/21 11:14 CV Function Including HR & BP: Stable Pain Control: Satisfactory Nausea & Vomiting: Negative Mental Status: Baseline Respiratory Status: Airway Patent Hydration Status: Satisfactory Anesthesia Complications: None
[2021-02-13 11:30] VITALS: BP 115/87
== END 2021-02-13 07:55 | disposition home or self-care (01) ==
LOC: SDS 07:54
PROVIDERS: ATTEND Surgery
PROC: 0DBL8ZZ Excision of Transverse Colon, Via Natural or Artificial Opening Endoscopic (ICD-10-PCS; 2021-02-13)
PROC: 0DBP8ZZ Excision of Rectum, Via Natural or Artificial Opening Endoscopic (ICD-10-PCS; 2021-02-13)
PROC: 0DBK8ZZ Excision of Ascending Colon, Via Natural or Artificial Opening Endoscopic (ICD-10-PCS; principal; 2021-02-13 09:15)
DX: D12.2 Benign neoplasm of ascending colon (principal); D12.3 Benign neoplasm of transverse colon; D12.8 Benign neoplasm of rectum; K59.00 Constipation, unspecified; K64.8 Other hemorrhoids; K63.9 Disease of intestine, unspecified; I12.9 Hypertensive chronic kidney disease with stage 1 through stage 4 chronic kidney disease, or unspecified chronic kidney disease; E11.22 Type 2 diabetes mellitus with diabetic chronic kidney disease; N18.30 Chronic kidney disease, stage 3 unspecified; I48.91 Unspecified atrial fibrillation; J44.9 Chronic obstructive pulmonary disease, unspecified; F17.200 Nicotine dependence, unspecified, uncomplicated; G47.30 Sleep apnea, unspecified; E11.51 Type 2 diabetes mellitus with diabetic peripheral angiopathy without gangrene; I25.10 Atherosclerotic heart disease of native coronary artery without angina pectoris; E78.00 Pure hypercholesterolemia, unspecified; K21.9 Gastro-esophageal reflux disease without esophagitis; N40.0 Benign prostatic hyperplasia without lower urinary tract symptoms; F43.10 Post-traumatic stress disorder, unspecified; Z79.01 Long term (current) use of anticoagulants; Z79.84 Long term (current) use of oral hypoglycemic drugs; Z95.0 Presence of cardiac pacemaker; Z85.51 Personal history of malignant neoplasm of bladder
CPT/HCPCS: 45385; J7120

== ENCOUNTER 2021-05-12 09:53 | Outpatient (CLI) | payer OTHER ==
--- NOTE | 2021-05-12 11:52 | XRAY Report ---
PROCEDURE: Shoulder 3 View RT INDICATIONS: RIGHT SHOULDER PAIN TECHNIQUE: 3 views of the shoulder were acquired. COMPARISON: None. FINDINGS: Bones: No fractures or dislocations. No suspicious bony lesions. Visualized ribs appear intact. S evere acromioclavicular degenerative narrowing. There is mild high riding appearance of the humeral h ead. Soft tissues: No suspicious soft tissue calcifications. IMPRESSION: 1. Severe acromioclavicular degenerative narrowing. 2. High riding humeral head which can be seen with rotator cuff pathology. Reviewed by: Maureen Fox MD on 05/12/2021 11:51 AM PDT Approved by: Maureen Fox MD on 05/12/2021 11:51 AM PDT Station ID: [id number]
== END 2021-05-12 23:59 | disposition home or self-care (01) ==
LOC: DI.S 09:53
PROVIDERS: ATTEND Nurse Practitioner Family
DX: M19.011 Primary osteoarthritis, right shoulder (principal); R93.6 Abnormal findings on diagnostic imaging of limbs

== ENCOUNTER 2021-07-09 07:15 | Outpatient (CLI) | payer OTHER ==
--- NOTE | 2021-07-09 15:07 | Ultrasound Report ---
PROCEDURE: Arterial Visceral Complete INDICATIONS: ESSENTIAL HTN TECHNIQUE: Real time scanning was performed of both kidneys, followed by Color and pulsed Doppler in terrogation of the renal vessels. COMPARISON: Correlation is made with prior CT examinations, 12/25/2019, 07/07/2015 FINDINGS: Aortic peak systolic velocity: 88 cm/s. Right side: Menendez-scale imaging: Kidney is 13 cm long; renal cortical thickness is 1.8 cm. No hydronephrosis. N o nephrolithiasis. Renal cortex is normal in echogenicity. No suspicious solid renal masses. Proximal renal artery peak systolic velocity: 265 cm/s. Mid renal artery peak systolic velocity: 236 cm/s. Distal renal artery peak systolic velocity: 126 cm/s. Renal vein: Patent, without thrombus. Peak renal/aortic ratio (RAR): 3 Left side: Menendez-scale imaging: Kidney is 10.8 cm long; renal cortical thickness is 1.2 cm. No hydronephrosis. No nephrolithiasis. Renal cortex is normal in echogenicity. No suspicious solid renal masses. Sim ple appearing cysts are seen, which measure up to 1.4 cm superiorly. A small amount of perinephric fl uid can be seen inferiorly. Proximal renal artery peak systolic velocity: 334 cm/s. Mid-renal artery peak systolic velocity: 261 cm/s. Distal renal artery peak systolic velocity: 102 cm/s. Renal vein: Patent, without thrombus. Peak renal/aortic ratio (RAR): 3.8 IMPRESSION: Abnormal elevated renal artery velocities, which are consistent with hemodynamically significant sten oses, left worse than right. Please consider a follow-up renal CT angiogram for further evaluation. A small amount of left perirenal fluid can be seen. Reviewed by: Akash Robb MD on 07/09/2021 2:06 PM ARLYN Approved by: Akash Robb MD on 07/09/2021 2:06 PM ARLYN Station ID: [id number]
== END 2021-07-09 07:16 | disposition home or self-care (01) ==
LOC: DI 07:15
PROVIDERS: ATTEND Family Medicine
DX: I10 Essential (primary) hypertension (principal); R93.422 Abnormal radiologic findings on diagnostic imaging of left kidney; R93.421 Abnormal radiologic findings on diagnostic imaging of right kidney; R93.5 Abnormal findings on diagnostic imaging of other abdominal regions, including retroperitoneum
CPT/HCPCS: 93975

== ENCOUNTER 2021-09-07 10:35 | Outpatient (CLI) | payer OTHER ==
[2021-09-07 15:02] LABS: BASOPHILS % (AUTO) 0.6 %; EOSINOPHILS # (AUTO) 0.2 10^3/uL (0.0-0.7); EOSINOPHILS % (AUTO) 2.6 %; HCT - HEMATOCRIT 28.4 % (42.0-52.0); HGB - HEMOGLOBIN 9.4 g/dL (14.0-18.0); LYMPHOCYTES # (AUTO) 0.8 10^3/uL (1.5-3.5); LYMPHOCYTES % (AUTO) 11.6 %; MEAN CORPUSCULAR HEMOGLOBIN 32.3 pg (27.0-31.0); MEAN CORPUSCULAR HGB CONC 33.1 g/dL (32.0-36.0); MEAN CORPUSCULAR VOLUME 97.6 fL (80.0-94.0); MEAN PLATELET VOLUME 10.9 fL (7.4-11.4); MONOCYTES # (AUTO) 0.8 10^3/uL (0.0-1.0); MONOCYTES % (AUTO) 11.2 %; NEUTROPHILS # (AUTO) 5.1 10^3/uL (1.5-6.6); NEUTROPHILS % (AUTO) 73.6 %; PLT - PLATELET COUNT 176 10^3/uL (130-450); RED BLOOD COUNT 2.91 10^6/uL (4.70-6.10); RED CELL DISTRIBUTION WIDTH 13.3 % (12.0-15.0)
[2021-09-07 15:38] LABS: % IRON SATURATION 13 % (20-50); IRON 33 ug/dL (45-182); TOTAL IRON BINDING CAPACITY 258 ug/dL (250-450); TRANSFERRIN 184 mg/dL (180-329)
== END 2021-09-07 10:36 | disposition home or self-care (01) ==
LOC: LAB.S 10:35
PROVIDERS: ATTEND Nurse Practitioner Family
DX: D50.9 Iron deficiency anemia, unspecified (principal)
CPT/HCPCS: 36415; 82728; 83540; 84466; 85025

== ENCOUNTER 2021-09-19 15:05 | Outpatient (CLI) | payer OTHER ==
--- NOTE | 2021-09-19 15:35 | XRAY Report ---
PROCEDURE: Chest 2 View X-Ray INDICATIONS: Dyspnea TECHNIQUE: 2 view(s) of the chest. COMPARISON: 01/18/2021. FINDINGS: Surgical changes and devices: Left chest wall cardiac pacing device is in similar position to the ana or study. Lungs and pleura: Small left pleural effusion with overlying consolidation versus atelectasis. There is probably a tiny right effusion on the right also Increased interstitial markings in both lungs wit h cephalization of pulmonary vessels. Mediastinum: Mediastinal contours are normal. Heart size is at the upper limits of normal. Bones and chest wall: No suspicious bony abnormalities. Soft tissues appear unremarkable. IMPRESSION: Heart size at the upper limits of normal with increased interstitial markings in both lungs. Findings are suggestive of cardiogenic pulmonary edema. Ill-defined somewhat round airspace opacity in the right lung base raises concern for a lung nodule. CT chest with IV contrast recommended. Small left and trace right pleural effusions are presumably related to pulmonary edema although malig nant effusion cannot be excluded. Reviewed by: Cachorro Hernadez MD on 09/19/2021 3:34 PM PST Approved by: Cachorro Hernadez MD on 09/19/2021 3:34 PM PST Station ID: [id number]
== END 2021-09-19 15:06 | disposition home or self-care (01) ==
LOC: DI.S 15:05
PROVIDERS: ATTEND Nurse Practitioner Family
DX: R06.00 Dyspnea, unspecified (principal); I51.7 Cardiomegaly; R91.8 Other nonspecific abnormal finding of lung field; J90 Pleural effusion, not elsewhere classified

== ENCOUNTER 2021-09-26 12:27 | Outpatient (CLI) | payer OTHER ==
[2021-09-26 14:35] LABS: BASOPHILS % (AUTO) 0.3 %; EOSINOPHILS % (AUTO) 0.4 %; LYMPHOCYTES # (AUTO) 0.6 10^3/uL (1.5-3.5); MEAN CORPUSCULAR HEMOGLOBIN 33.7 pg (27.0-31.0); MEAN CORPUSCULAR HGB CONC 33.5 g/dL (32.0-36.0); MEAN CORPUSCULAR VOLUME 100.5 fL (80.0-94.0); MEAN PLATELET VOLUME 10.6 fL (7.4-11.4); MONOCYTES # (AUTO) 0.5 10^3/uL (0.0-1.0); MONOCYTES % (AUTO) 6.6 %; NEUTROPHILS # (AUTO) 6.7 10^3/uL (1.5-6.6); NEUTROPHILS % (AUTO) 85.4 %; PLT - PLATELET COUNT 199 10^3/uL (130-450); RED BLOOD COUNT 1.84 10^6/uL (4.70-6.10); RED CELL DISTRIBUTION WIDTH 16.3 % (12.0-15.0); WHITE BLOOD COUNT 7.9 x10^3/uL (4.8-10.8)
[2021-09-26 14:49] LABS: ALBUMIN 2.8 g/dL (3.2-5.5); ALBUMIN/GLOBULIN RATIO 1.3 (1.0-2.2); BILIRUBIN,TOTAL 0.5 mg/dL (0.2-1.0); CREATININE 2.1 mg/dL (0.6-1.2); POTASSIUM 4.1 mmol/L (3.5-5.0)
[2021-09-26 14:52] LABS: HCT - HEMATOCRIT 18.5 % (42.0-52.0); HGB - HEMOGLOBIN 6.2 g/dL (14.0-18.0)
== END 2021-09-26 23:59 | disposition home or self-care (01) ==
LOC: LAB.S 12:27
PROVIDERS: ATTEND Emergency Medicine
DX: I50.9 Heart failure, unspecified (principal); N28.9 Disorder of kidney and ureter, unspecified
CPT/HCPCS: 36415; 80053; 83880; 85025

== ENCOUNTER 2021-10-30 11:22 | Outpatient (CLI) | payer OTHER ==
[2021-10-30] MEDS ORDERED: IOVERSOL 320 100 ML VIAL IVP ONE (12:28)
[2021-10-30 13:30] LABS: CALCIUM 8.8 mg/dL (8.5-10.3); CREATININE 2.2 mg/dL (0.6-1.2); POTASSIUM 4.5 mmol/L (3.5-5.0)
--- NOTE | 2021-10-30 17:49 | CT Report ---
PROCEDURE: CHEST WO INDICATIONS: PULMONARY EDEMA TECHNIQUE: Noncontrast 1mm axial images were acquired from the pulmonary apices to the posterior costophrenic an gles. Axial 5 mm soft tissue kernel reconstructions were performed as well as 8 mm axial MIP and cor onal and sagittal 5 mm reformations. For radiation dose reduction, the following was used: automate d exposure control, adjustment of mA and/or kV according to patient size. COMPARISON: Correlation is made with chest radiograph, 09/19/2021. Correlation is also made with ove rlapping portions of the abdomen and pelvis CT, 07/17/2015. FINDINGS: Image quality: Excellent. Lungs and pleura: No acute air space opacities. There is a small left-sided pleural effusion. No pn eumothorax. Central and peripheral airways are patent and normal in caliber. An azygos lobe is inci dentally noted. Within the right lower lobe, there is a soft tissue pulmonary nodule seen, as on series 4 image 251 m easuring 6 mm. No additional pulmonary nodules are seen. Atelectasis is seen involving the lateral as pect of the right middle lobe. Centrilobular emphysematous changes are seen, which are more prominent at the lung apices than at the lung bases. Mediastinum: Heart size is normal. No pericardial effusion. Borderline prominent mediastinal lymph nodes are seen, yet without enrique enlargement. Thoracic aorta and central pulmonary arteries are nor mal in size. Atherosclerotic calcification is seen. Esophagus is normal in caliber. No hiatal hernia . Bones and chest wall: No suspicious bony lesions. No vertebral body compression fractures. No axil alfredo or supraclavicular adenopathy by size criteria. Within the right thyroid, there is a 1.8 cm poo rly enhancing nodule, as on series 3 image 6. There is a left-sided pacer device seen, with the leads seen in the expected locations. Gynecomastia is incidentally noted. Abdomen: Visualized upper abdominal solid organs and bowel loops appear normal in the absence of con trast. IMPRESSION: No definite pulmonary edema is seen. There is a small left-sided pleural effusion. A 1.8 cm right thyroid nodule is incidentally noted. When clinically appropriate, please consider a d edicated thyroid ultrasound for further evaluation. Borderline prominent mediastinal lymph nodes are seen, without enrique enlargement. Within the right lower lobe, there is a 6 mm pulmonary nodule seen, which is not significantly change d compared to 2015 and considered to be benign. Emphysematous changes are seen. Incidental note is made of: Pacer device Gynecomastia Reviewed by: Akash Robb MD on 10/30/2021 4:47 PM AKST Approved by: Akash Robb MD on 10/30/2021 4:47 PM AK Station ID: [id number]
== END 2021-10-30 11:23 | disposition home or self-care (01) ==
LOC: LAB 11:22
PROVIDERS: ATTEND Nurse Practitioner Family
DX: J81.1 Chronic pulmonary edema (principal); J90 Pleural effusion, not elsewhere classified; R91.1 Solitary pulmonary nodule; J43.2 Centrilobular emphysema
CPT/HCPCS: 36415; 80048

== ENCOUNTER 2021-11-01 18:03 | Outpatient (CLI) | payer OTHER | END 2021-11-01 18:04 | disposition critical access hospital (66) | LOC: EMS 18:03 | DX: I10 Essential (primary) hypertension (principal); M43.6 Torticollis; M54.2 Cervicalgia | CPT/HCPCS: A0425; A0429 ==

== ENCOUNTER 2021-11-01 18:36 | Emergency (ER) | payer OTHER ==
[2021-11-01] MEDS ORDERED: amLODIPine 5 MG TABLET PO STA (19:01)
--- NOTE | 2021-11-01 19:23 | ED Physician Documentation ---
History of Present Illness - Stated complaint Stated Complaint: NECK STIFFNESS - Chief complaint Chief Complaint: General - Additonal information Additional information: 76-year-old male presents emergency department for evaluation of acute onset shortness of breath. He is also concerned about his elevated blood pressure. He reports that he was at the oral surgeon's office today and had seven teeth removed in anticipation of placing grafts[place] to [place] sudden neck pain that was first on the left side then radiated to the right. Most of the neck pain had resolved. [facility] was [facility] to [facility] off his opiate prescription when he began to develop a sudden shortness of air. He denies that he had any chest pain. No dizziness or near syncope. Patient has a past medical history most significant for atrial fibrillation status post pacemaker who was previously on apixaban, peripheral arterial disease and bladder cancer, hypertension and stage III kidney disease as well as diabetes and known heart failure. Patient initially presented to this emergency department on 26 September after he was found to be passing dark stool. He was found to have a hemoglobin of 6.1. He was transferred to [facility] where he received a blood transfusion underwent an EGD. While there he found to have grade C esophagitis. His apixaban was held While at [facility] but was resumed upon discharge. However he followed up with cardiology on 03 October and was noted to have a decrease in hemoglobin to 7.5. He was thus instructed to stop taking the apixaban and follow-up with hematology. Review of Systems Constitutional: denies: Fever, Chills Eyes: reports: Reviewed and negative Nose: reports: Reviewed and negative Throat: reports: Reviewed and negative Cardiac: reports: Reviewed and negative Respiratory: reports: Dyspnea. denies: Cough, Hemoptysis GI: reports: Reviewed and negative : reports: Reviewed and negative Skin: reports: Reviewed and negative Musculoskeletal: reports: Reviewed and negative PD PAST MEDICAL HISTORY - Past Medical History Cardiovascular: Hypertension, High cholesterol, Peripheral Vascular Disease, Atrial fibrillation, Arrhythmia Respiratory: Asthma, Sleep apnea, CPAP use Neuro: None Endocrine/Autoimmune: Type 2 diabetes GI: GERD, Colon polyps, Chronic constipation : Benign prostate hypertrophy HEENT: None Psych: None Musculoskeletal: None Derm: None - Past Surgical History Past Surgical History: No General: Colonoscopy Cardiovascular: Pacemaker, Other Neuro: Other - Present Medications Home Medications: Ambulatory Orders Medication Instructions Recorded Confirmed Glipizide [Glipizide ER] 10 mg PO DAILY 12/16/14 11/01/21 Atorvastatin [Lipitor] 80 mg PO DAILY 02/23/17 11/01/21 Albuterol Sulfate [Proair Hfa 1 - 2 puffs INH Q4H PRN 12/01/20 11/01/21 Inhaler] Alogliptin Benzoate [Alogliptin] 25 mg PO DAILY 12/01/20 11/01/21 Azelastine HCl 2 spray NS BID 12/01/20 11/01/21 Budesonide/Formoterol Fumarate 2 puffs IH DAILY 12/01/20 11/01/21 [Symbicort 160-4.5 Mcg Inhaler] Carvedilol [Coreg] 25 mg PO BID 12/01/20 11/01/21 Docusate Sodium [Dulcolax Stool 100 mg PO BID PRN 12/01/20 11/01/21 Softener] Flecainide [Tambocar] 50 mg PO Q12H 12/01/20 11/01/21 Furosemide [Lasix] 40 mg PO DAILY PRN 12/01/20 11/01/21 Ipratropium [Atrovent] 1 puffs INH DAILY 12/01/20 11/01/21 Montelukast [Singulair] 10 mg PO QPM 12/01/20 11/01/21 Sitagliptin Phosphate [Januvia] 50 mg PO DAILY 12/01/20 11/01/21 Tamsulosin [Flomax] 0.4 mg PO DAILY 12/01/20 11/01/21 buPROPion HCL [Bupropion HCl Sr] 150 mg PO BID 12/01/20 11/01/21 cloNIDine [Catapres] 0.1 mg PO QID PRN 12/01/20 11/01/21 Acetaminophen [Acetaminophen Extra 500 mg PO Q4HR PRN 11/01/21 11/01/21 Strength] Calcium Citrate/Vitamin D3 1 tab PO DAILY 11/01/21 11/01/21 [Calcium Cit 315 mg-Vit D3 5Mcg] Ferrous Sulfate 325 mg PO DAILY 11/01/21 11/01/21 Fluticasone Propion/Salmeterol 1 puffs IH BID 11/01/21 11/01/21 [Wixela 250-50 Inhub] Pantoprazole Sodium 40 mg PO DAILY 11/01/21 11/01/21 Potassium Chloride 10 meq PO DAILY 11/01/21 11/01/21 Tadalafil [Cialis] 20 mg 11/01/21 - Allergies Allergies/Adverse Reactions: Allergies Allergy/AdvReac Type Severity Reaction Status Date / Time metformin AdvReac affects Verified 11/01/21 18:47 liver - Social History Does the pt smoke?: Yes Smoking Status: Former smoker Does the pt drink ETOH?: No Does the pt have substance abuse?: No - Immunizations Immunizations are current?: Yes - POLST Patient has POLST: No PD ED PE NORMAL - General General: Alert and oriented X 3, No acute distress, Well developed/nourished - HEENT HEENT: Atraumatic, Ears normal, Moist mucous membranes - Neck Neck: Supple, no meningeal sign, No adenopathy - Cardiac Cardiac: RRR, No murmur, No gallop - Respiratory Respiratory: No respiratory distress, Clear bilaterally - Abdomen Abdomen: Normal bowel sounds, Soft, Non tender - Back Back: No CVA TTP, No spinal TTP - Derm Derm: Normal color, Warm and dry - Extremities Extremities: No deformity, No tenderness to palpate, Normal ROM s pain - Neuro Neuro: Alert and oriented X 3, plate straightener 2-12 intact Eye Opening: Spontaneous Motor: Obeys Commands Verbal: Oriented GCS Score: 15 - Psych Psych: Normal mood Results - Vitals Vitals: Vital Signs - 24 hr 11/01/21 11/01/21 11/01/21 18:48 19:20 19:43 Temperature 37.4 C 37.3 C Heart Rate 109 H 99 100 Respiratory 22 20 24 Rate Blood Pressure 195/59 H 170/62 H 152/62 H O2 Saturation 95 96 98 11/01/21 11/01/21 21:24 22:34 Temperature Heart Rate 85 76 Respiratory 20 20 Rate Blood Pressure 142/69 H 115/64 O2 Saturation 94 94 Oxygen O2 Source Room air - EKG (time done) 1918 Rate: Rate (enter#) (99) Rhythm: NSR [place]: Normal Intervals: Normal NM QRS: Normal Ischemia: Normal ST segments Compare to prior EKG: Changed from prior EKG (Previously paced now sinus without pacing) Computer interpretation: Agree with computer - Labs Labs: Laboratory Tests 11/01/21 11/01/21 11/01/21 19:13 19:13 19:13 WBC 12.5 H RBC 3.01 L Hgb 9.4 L Hct 29.5 L MCV 98.0 H MCH 31.2 H MCHC 31.9 L RDW 12.9 Plt Count 188 MPV 10.6 Neut # (Auto) 10.9 H Lymph # (Auto) 0.3 L [place] # (Auto) 1.2 H Eos # (Auto) 0.0 Baso # (Auto) 0.1 Absolute Nucleated RBC 0.00 Nucleated RBC % 0.0 D-Dimer 551.5 H Sodium 135 Potassium 4.5 Chloride 104 Carbon Dioxide 23 Anion Gap 8.0 BUN 43 H Creatinine 1.9 H Estimated GFR (MDRD) 35 L Glucose 301 H Calcium 8.6 Total Bilirubin 0.8 AST 13 ALT 17 Alkaline Phosphatase 99 Troponin I High Sens Total Protein 5.9 L Albumin 3.2 Globulin 2.7 Albumin/Globulin Ratio 1.2 Lipase 36 11/01/21 19:13 WBC RBC Hgb Hct MCV MCH MCHC RDW Plt Count MPV Neut # (Auto) Lymph # (Auto) [place] # (Auto) Eos # (Auto) Baso # (Auto) Absolute Nucleated RBC Nucleated RBC % D-Dimer Sodium Potassium Chloride Carbon Dioxide Anion Gap BUN Creatinine Estimated GFR (MDRD) Glucose Calcium Total Bilirubin AST ALT Alkaline Phosphatase Troponin I High Sens 11.5 Total Protein Albumin Globulin Albumin/Globulin Ratio Lipase - Rads (name of study) CXR Radiology: Final report received (No focal infiltrate, pleural effusion or pneumothorax) CT PA Radiology: Final report received, See rad report (no PE seen; increased bilateral pleural effusions) PD MEDICAL DECISION MAKING - ED course Complexity details: reviewed results, re-evaluated patient, considered differential, d/w patient ED course: 76-year-old male presents to the emergency department for evaluation of sudden onset shortness of breath when he is [facility] this afternoon. He does have a history of atrial fib for which she was anticoagulated on Eliquis. However due to an upper GI bleed that was stopped in September. He was also noted to be hypertensive at home which also prompted the ER visit. He had developed neck pain this afternoon after an extensive surgical dental visit to remove 7 teeth. Today screening labs show modest leukocytosis with white count of 12,000 but his hemoglobin is improved from most recent visits and stable when comparred to a recent heme/onc note. Screening labs do not show any acute worrisome findings. We do note chronic kidney disease which is essentially unchanged. High- sensitivity troponin is negative. Given that he has a history of atrial fibrillation is no longer anticoagulated the biggest concern was that the shortness of breath may be related to a PE. His D-dimer was elevated at 550 though when adjusted for age may be appropriate however given the risk for PE a CT pulmonary angio was completed. This is pending interpretation by a radiologist. Patient is going to be signed out to my nighttime colleague Dr. Tyler to follow-up on the CT results, if negative, patient is stable to sc home. Departure - Departure Disposition: Home, Self Care Clinical Impression: Shortness of breath, History of atrial fibrillation Hypertension Qualifiers: Hypertension type: unspecified Qualified Code(s): I10 - Essential (primary) hypertension Comments: Thank you for allowing us to care for you today at [facility]. All the testing in the emergency department today including your blood work, and the CT scan of your chest was very reassuring. The CT scan did not show any blood clots however it did show some chronically enlarged lymph nodes as well as a very small thyroid nodule. These are things that you want to follow-up with your primary care doctor about as soon as possible. If it anytime you have any new or worsening symptoms please not hesitate to return.
[2021-11-01 19:25] LABS: BASOPHILS # (AUTO) 0.1 10^3/uL (0.0-0.1); BASOPHILS % (AUTO) 0.4 %; EOSINOPHILS % (AUTO) 0.3 %; HCT - HEMATOCRIT 29.5 % (42.0-52.0); HGB - HEMOGLOBIN 9.4 g/dL (14.0-18.0); LYMPHOCYTES # (AUTO) 0.3 10^3/uL (1.5-3.5); LYMPHOCYTES % (AUTO) 2.5 %; MEAN CORPUSCULAR HEMOGLOBIN 31.2 pg (27.0-31.0); MEAN CORPUSCULAR HGB CONC 31.9 g/dL (32.0-36.0); MEAN PLATELET VOLUME 10.6 fL (7.4-11.4); MONOCYTES # (AUTO) 1.2 10^3/uL (0.0-1.0); MONOCYTES % (AUTO) 9.6 %; NEUTROPHILS # (AUTO) 10.9 10^3/uL (1.5-6.6); NEUTROPHILS % (AUTO) 86.7 %; PLT - PLATELET COUNT 188 10^3/uL (130-450); RED BLOOD COUNT 3.01 10^6/uL (4.70-6.10); RED CELL DISTRIBUTION WIDTH 12.9 % (12.0-15.0); WHITE BLOOD COUNT 12.5 x10^3/uL (4.8-10.8)
[2021-11-01] MEDS ORDERED: oxyCODONE 5 MG TABLET PO STA (19:36)
[2021-11-01 19:37] LABS: ALBUMIN 3.2 g/dL (3.2-5.5); ALBUMIN/GLOBULIN RATIO 1.2 (1.0-2.2); BILIRUBIN,TOTAL 0.8 mg/dL (0.2-1.0); CALCIUM 8.6 mg/dL (8.5-10.3); CREATININE 1.9 mg/dL (0.6-1.2); POTASSIUM 4.5 mmol/L (3.5-5.0); TOTAL PROTEIN 5.9 g/dL (6.7-8.2)
--- NOTE | 2021-11-01 19:45 | XRAY Report ---
PROCEDURE: Chest 1 View X-Ray INDICATIONS: Chest Pain TECHNIQUE: One view of the chest was acquired. COMPARISON: 09/19/2021. FINDINGS: Surgical changes and devices: Left chest wall pacemaker leads are in the region of right atrium and r ight ventricle.. Lungs and pleura: No pleural effusions or pneumothorax. Lungs are clear. Mediastinum: Mediastinal contours appear normal. Heart size is normal. Bones and chest wall: No suspicious bony lesions. Overlying soft tissues appear unremarkable. IMPRESSION: No focal infiltrate, pleural effusion or pneumothorax. Reviewed by: Esa Acosta MD on 11/01/2021 7:43 PM PST Approved by: Esa Acosta MD on 11/01/2021 7:43 PM PST Station ID: [id number]
[2021-11-01] MEDS ORDERED: SODIUM CHLORIDE 0.9% 1,000 ML IV STA (19:53)
[2021-11-01] MEDS ORDERED: IOVERSOL 320 100 ML VIAL IVP ONE ×2 (20:08→20:48)
--- NOTE | 2021-11-01 22:17 | CT Report ---
PROCEDURE: ANGIO CHEST W/WO INDICATIONS: r/o PE; off anticoagulation; sudden SOA; dimer 550 CONTRAST: IV CONTRAST: Optiray 320 ml: 80 PO CONTRAST: *NO PO CONTRAST TECHNIQUE: After the administration of intravenous contrast, 2 mm axial images were acquired from the pulmonary apices to the posterior costophrenic angles during the arterial phase. In addition, 1 mm lung kernel and 5 mm soft tissue kernel reconstructions were performed. 3-dimensional coronal oblique maximum int ensity projection (MIP) reformats, 8 mm axial MIP, and 5 mm coronal and sagittal MPR reformats were t hen performed through the thorax. For radiation dose reduction, the following was used: automated exp osure control, adjustment of mA and/or kV according to patient size. COMPARISON: Chest xray 11/01/21, CT Chest 10/30/21 FINDINGS: Image quality: Excellent. Pulmonary arteries: Pulmonary arteries are normal in size, and demonstrate no intraluminal filling d efects to suggest central pulmonary embolism. Lungs and pleura: Emphysematous changes are present. Mild left and minimal right effusions, increased compared to prior exam. Central and peripheral airways are patent. Mediastinum: Heart size is normal, without pericardial effusion. 1.9 cm right hilar lymph node, unch anged. Borderline enlarged mediastinal lymph nodes are also unchanged. Thoracic aorta is normal in ca liber and enhancement. Esophagus is normal in caliber, with mild hiatal hernia. Bones and chest wall: No suspicious bony lesions. Ribs and thoracic spine appear intact throughout. No axillary or supraclavicular adenopathy. The thyroid demonstrates low-attenuation foci bilateral ly, unchanged. Abdomen: Visualized upper abdominal solid organs appear normal in the early arterial phase of enhanc ement. IMPRESSION: Increased bilateral effusions. Borderline mediastinal enlarged lymph nodes and mildly enlarged right hilar lymph node, unchanged. Low-attenuation foci within the thyroid. Thyroid ultrasound may be obtained as clinically indicated f or further evaluation. CLINICAL RECOMMENDATION STATEMENTS: In patients <35 years with an ITN detected on CT, MRI, or extrathyroidal ultrasound, the Committee re commends further evaluation with dedicated thyroid ultrasound if the nodule is "e1 cm and has no susp icious imaging features, and if the patient has normal life expectancy. In patients "e35 years with an ITN detected on CT, MRI, or extrathyroidal ultrasound, the Committee r ecommends further evaluation with dedicated thyroid ultrasound if the nodule is "e1.5 cm and has no s uspicious imaging features, and if the patient has normal life expectancy. (ACR, 2014) Reviewed by: Maureen Fox MD on 11/01/2021 10:15 PM PST Approved by: Maureen Fox MD on 11/01/2021 10:15 PM PST Station ID: [id number]
[2021-11-01 22:35] VITALS: BP 115/64
--- NOTE | 2021-11-01 22:36 | ED Physician Documentation ---
ED Addendum - Addendum Addendum: 11/01/21 22:35 Patient received as signout from off going [employer], patient evaluated independently at bedside, found to be resting comfortably and in no acute distress. Labs and imaging reviewed. CTA negative for pulmonary emboli. Does show chronic enlargement of perihilar lymph nodes as well as a nonspecific foci in the thyroid. This information was communicated directly with patient. At this time will discharge for ongoing follow-up with primary care/cardiology as needed. Otherwise clear return precautions and follow-up instructions given prior to discharge.
== END 2021-11-01 23:15 | disposition home or self-care (01) ==
LOC: EDUNIT# → ED 18:36
DX: I10 Essential (primary) hypertension (principal); R06.02 Shortness of breath; I48.91 Unspecified atrial fibrillation; Z95.0 Presence of cardiac pacemaker; I49.3 Ventricular premature depolarization; E11.9 Type 2 diabetes mellitus without complications; Z79.84 Long term (current) use of oral hypoglycemic drugs; Z87.891 Personal history of nicotine dependence; J90 Pleural effusion, not elsewhere classified
CPT/HCPCS: 36415; 71045; 71275; 80053; 83690; 84484; 85025; 85379; 93005; 99284; A9270; Q9967

== ENCOUNTER 2021-11-20 07:00 | Outpatient (CLI) | payer OTHER ==
[2021-11-20 20:16] LABS: BASOPHILS # (AUTO) 0.1 10^3/uL (0.0-0.1); BASOPHILS % (AUTO) 0.7 %; EOSINOPHILS # (AUTO) 0.2 10^3/uL (0.0-0.7); EOSINOPHILS % (AUTO) 2.1 %; HCT - HEMATOCRIT 33.3 % (42.0-52.0); HGB - HEMOGLOBIN 10.9 g/dL (14.0-18.0); LYMPHOCYTES % (AUTO) 12.7 %; MEAN CORPUSCULAR HEMOGLOBIN 32.2 pg (27.0-31.0); MEAN CORPUSCULAR HGB CONC 32.7 g/dL (32.0-36.0); MEAN CORPUSCULAR VOLUME 98.5 fL (80.0-94.0); MEAN PLATELET VOLUME 10.8 fL (7.4-11.4); MONOCYTES # (AUTO) 0.7 10^3/uL (0.0-1.0); MONOCYTES % (AUTO) 8.7 %; NEUTROPHILS # (AUTO) 5.7 10^3/uL (1.5-6.6); NEUTROPHILS % (AUTO) 75.4 %; PLT - PLATELET COUNT 178 10^3/uL (130-450); RED BLOOD COUNT 3.38 10^6/uL (4.70-6.10); RED CELL DISTRIBUTION WIDTH 13.8 % (12.0-15.0); WHITE BLOOD COUNT 7.6 x10^3/uL (4.8-10.8)
[2021-11-20 20:32] LABS: CHOL/HDL RATIO 2.6 (<5.0); CHOLESTEROL 182 mg/dL; HDL CHOLESTEROL 69 mg/dL; LDL CHOLESTEROL,CALCULATED 101 mg/dL; LDL/HDL RATIO 1.5 (<3.6); TRIGLYCERIDES 61 mg/dL; VLDL CHOLESTEROL 12 mg/dL
[2021-11-20 20:38] LABS: ALBUMIN 3.5 g/dL (3.2-5.5); ALBUMIN/GLOBULIN RATIO 1.3 (1.0-2.2); BILIRUBIN,TOTAL 0.5 mg/dL (0.2-1.0); CALCIUM 9.1 mg/dL (8.5-10.3); CREATININE 2.3 mg/dL (0.6-1.2); POTASSIUM 4.2 mmol/L (3.5-5.0); TOTAL PROTEIN 6.3 g/dL (6.7-8.2)
[2021-11-20 20:49] LABS: FERRITIN 199.2 ng/mL (23.9-336.2)
[2021-11-20 20:55] LABS: FOLATE 16.35 ng/mL (5.90 - >24.8)
== END 2021-11-20 23:59 | disposition home or self-care (01) ==
LOC: LAB.S 07:00
PROVIDERS: ATTEND Nurse Practitioner Family
DX: E78.5 Hyperlipidemia, unspecified (principal); N18.4 Chronic kidney disease, stage 4 (severe); D53.9 Nutritional anemia, unspecified; N40.1 Benign prostatic hyperplasia with lower urinary tract symptoms
CPT/HCPCS: 36415; 80053; 80061; 82607; 82728; 82746; 83540; 83721; 84153; 84466; 85025

== ENCOUNTER 2021-11-20 15:03 | Outpatient (CLI) | payer OTHER | END 2021-11-20 15:04 | disposition home or self-care (01) | LOC: LAB.S 15:03 | PROVIDERS: ATTEND Nurse Practitioner Family | DX: E78.5 Hyperlipidemia, unspecified (principal); N18.4 Chronic kidney disease, stage 4 (severe); D53.9 Nutritional anemia, unspecified; N40.1 Benign prostatic hyperplasia with lower urinary tract symptoms ==

== ENCOUNTER 2021-12-01 09:09 | Outpatient (CLI) | payer OTHER ==
[2021-12-01] MEDS ORDERED: ALBUTEROL NEB 2.5 MG/3 ML INH ONE (10:47)
[2021-12-01] MEDS ORDERED: ALBUTEROL 1 PUFF INH STA (10:49)
== END 2021-12-01 09:10 | disposition home or self-care (01) ==
LOC: RT 09:09
PROVIDERS: ATTEND Nurse Practitioner Family
DX: J44.9 Chronic obstructive pulmonary disease, unspecified (principal)
CPT/HCPCS: 94060

== ENCOUNTER 2021-12-11 14:39 | Outpatient (CLI) | payer OTHER ==
[2021-12-11 19:48] LABS: BASOPHILS % (AUTO) 0.6 %; EOSINOPHILS # (AUTO) 0.2 10^3/uL (0.0-0.7); EOSINOPHILS % (AUTO) 3.1 %; HGB - HEMOGLOBIN 11.5 g/dL (14.0-18.0); LYMPHOCYTES # (AUTO) 1.5 10^3/uL (1.5-3.5); LYMPHOCYTES % (AUTO) 23.3 %; MEAN CORPUSCULAR HEMOGLOBIN 31.6 pg (27.0-31.0); MEAN CORPUSCULAR HGB CONC 33.8 g/dL (32.0-36.0); MEAN CORPUSCULAR VOLUME 93.4 fL (80.0-94.0); MEAN PLATELET VOLUME 10.7 fL (7.4-11.4); MONOCYTES # (AUTO) 0.8 10^3/uL (0.0-1.0); MONOCYTES % (AUTO) 12.7 %; NEUTROPHILS # (AUTO) 3.7 10^3/uL (1.5-6.6); NEUTROPHILS % (AUTO) 60.1 %; PLT - PLATELET COUNT 142 10^3/uL (130-450); RED BLOOD COUNT 3.64 10^6/uL (4.70-6.10); RED CELL DISTRIBUTION WIDTH 13.3 % (12.0-15.0); WHITE BLOOD COUNT 6.2 x10^3/uL (4.8-10.8)
== END 2021-12-11 14:40 | disposition home or self-care (01) ==
LOC: LAB.S 14:39
PROVIDERS: ATTEND Family Medicine
DX: D53.9 Nutritional anemia, unspecified (principal)
CPT/HCPCS: 36415; 85025

== ENCOUNTER 2022-02-02 08:00 | Outpatient (CLI) | payer OTHER | END 2022-02-02 23:59 | disposition home or self-care (01) | LOC: LAB.S 08:00 | PROVIDERS: ATTEND Physician Assistant | DX: J44.1 Chronic obstructive pulmonary disease with (acute) exacerbation (principal); Z20.822 Contact with and (suspected) exposure to COVID-19 ==

== ENCOUNTER 2022-02-02 08:00 | Outpatient (CLI) | payer OTHER ==
--- NOTE | 2022-02-02 21:11 | XRAY Report ---
PROCEDURE: Chest 2 View X-Ray INDICATIONS: COUGH TECHNIQUE: 2 view(s) of the chest. COMPARISON: 11/01/2021. FINDINGS: Surgical changes and devices: Left chest wall cardiac pacer is stable.. Lungs and pleura: No pleural effusions or pneumothorax. Lungs are clear. Mediastinum: Mediastinal contours are normal. Heart size is normal. Bones and chest wall: No suspicious bony abnormalities. Soft tissues appear unremarkable. IMPRESSION: No acute cardiopulmonary disease process. Reviewed by: Julia Lujan MD, PhD on 02/02/2022 9:09 PM PDT Approved by: Julia Lujan MD, PhD on 02/02/2022 9:09 PM PDT Station ID: [id number]
== END 2022-02-02 23:59 | disposition home or self-care (01) ==
LOC: DI.S 08:00
PROVIDERS: ATTEND Physician Assistant
DX: R05.1 Acute cough (principal); J44.1 Chronic obstructive pulmonary disease with (acute) exacerbation; Z20.822 Contact with and (suspected) exposure to COVID-19

== ENCOUNTER 2022-02-02 15:38 | Outpatient (CLI) | payer OTHER | END 2022-02-02 15:39 | disposition left against medical advice (07) | LOC: EMS 15:38 | DX: R06.09 Other forms of dyspnea (principal); R09.89 Other specified symptoms and signs involving the circulatory and respiratory systems; R05.9 Cough, unspecified ==

== ENCOUNTER 2022-02-21 14:00 | Emergency (ER) | payer OTHER ==
--- OUTSIDE RECORDS SUMMARY | 2022-02-21 14:35 | EXTERNAL MEDICAL SUMMARY RPT | Continuity of Care Document ---
:1945 Author Organization [facility] Address [address] [place] [address] Phone Care Team Providers Name Role Phone Zeferino COCHRAN Unavailable Unavailable YUKI, Ayanna Mandujano Unavailable Unavailable Arcelia SOTO Unavailable Unavailable YUKI, Willie Leigh Unavailable Unavailable Allergies No information. Encounters No information. Medications date description facility 20220202 prednisone [facility] [place] 20220202 prednisone [facility] [place] 20220202 prednisone [facility] [place] 20220202 prednisone [facility] [place] Problems date description facility 20220202 Tobacco smoking status NHIS [facility] 20220202 Cough [facility] 20220202 Total score? [facility] 20220202 Obstructive chronic bronchitis with [facility] [place] 20220202 Current every day smoker [facility] 20220202 Alcohol use [facility] 20220202 Details of drug misuse behavior [facility] 20220202 Chronic obstructive pulmonary disease [facility] with [facility]ation [facility] [place] [id number] CHEST 2 VIEW [facility] [place] 20220202 COVID19 Testing [facility] [place] 20220202 Acute exacerbation of chronic [facility] obstructive airways disease [facility] [place] [id number] Acute cough [facility] [place] Results test status date ordered by attending specimen roel e _2019NCoV_COVID-19_Lab unknown 20220202 unknown unknown unknown _Test_Result_Text_ COVID-19_REFERENCE_TES unknown 20220202 unknown unknown unknown T T unknown 20220202 unknown unknown unknown _2019NCoV_COVID-19_Lab unknown 20220202 unknown unknown unknown _Test_Result_Text_ COVID-19_REFERENCE_TES unknown 20220202 unknown unknown unknown T T unknown 20220202 unknown unknown unknown facility observation status value reference units lab abnor mal line range code notes [facility] _2019NCoV_CO unknown NEGATIVE unknown _6659 unkn own unknown Clinic VID-19_Lab_Te [address]_Result_[facility] [place] [facility] COVID-19_REF unknown NEGATIVE unknown COVID unkn own unknown Clinic ERENCE_TEST 19.REF [facility] [place] [facility] T unknown NEGATIVE unknown COVID unknown u [facility] -19 [facility] [place] [facility] _2018NCoV_CO unknown NEGATIVE unknown _6659 unkn own unknown Clinic VID-19_Lab_Te [address]_Result[facility] [place] [facility] COVID-19_REF unknown NEGATIVE unknown COVID unkn own unknown Clinic ERENCE_TEST 19.REF [facility] [place] [facility] T unknown NEGATIVE unknown COVID unknown u [facility] -19 [facility] [place] Vital Signs date measurement value source 20220202 weight_standard 172 lb 20220202 weight_metric 78.02 kg 20220202 temperature_standard 97 F 20220202 temperature_metric 36.11 C 20220202 respiration_rate 24 /min 20220202 height_standard 73 in 20220202 height_metric 185.42 cm 20220202 heart_rate 100 /min 20220202 BP_systolic 156 mm[Hg] 20220202 BP_diastolic 90 mm[Hg] 20220202 BMI 22.77 kg/m2 20220202 weight_standard 172 lb 20220202 weight_metric 78.02 kg 20220202 temperature_standard 97 F 20220202 temperature_metric 36.11 C 20220202 respiration_rate 24 /min 20220202 height_standard 73 in 20220202 height_metric 185.42 cm 20220202 heart_rate 100 /min 20220202 BP_systolic 156 mm[Hg] 20220202 BP_diastolic 90 mm[Hg] 20220202 BMI 22.77 kg/m2 20220202 weight_standard 172 lb 20220202 weight_metric 78.02 kg 20220202 temperature_standard 97 F 20220202 temperature_metric 36.11 C 20220202 respiration_rate 24 /min 20220202 height_standard 73 in 20220202 height_metric 185.42 cm 20220202 heart_rate 100 /min 20220202 BP_systolic 156 mm[Hg] 20220202 BP_diastolic 90 mm[Hg] 20220202 BMI 22.77 kg/m2 20220202 weight_standard 172 lb 20220202 weight_metric 78.02 kg 20220202 temperature_standard 97 F 20220202 temperature_metric 36.11 C 20220202 respiration_rate 24 /min 20220202 height_standard 73 in 20220202 height_metric 185.42 cm 20220202 heart_rate 100 /min 20220202 BP_systolic 156 mm[Hg] 20220202 BP_diastolic 90 mm[Hg] 20220202 BMI 22.77 kg/m2
[2022-02-21 14:49] LABS: BASOPHILS % (AUTO) 0.2 %; EOSINOPHILS # (AUTO) 0.1 10^3/uL (0.0-0.7); EOSINOPHILS % (AUTO) 0.7 %; HGB - HEMOGLOBIN 9.1 g/dL (14.0-18.0); LYMPHOCYTES # (AUTO) 0.6 10^3/uL (1.5-3.5); LYMPHOCYTES % (AUTO) 7.4 %; MEAN CORPUSCULAR HEMOGLOBIN 30.4 pg (27.0-31.0); MEAN CORPUSCULAR HGB CONC 32.5 g/dL (32.0-36.0); MEAN CORPUSCULAR VOLUME 93.6 fL (80.0-94.0); MEAN PLATELET VOLUME 9.2 fL (7.4-11.4); MONOCYTES # (AUTO) 0.8 10^3/uL (0.0-1.0); MONOCYTES % (AUTO) 9.6 %; NEUTROPHILS # (AUTO) 6.6 10^3/uL (1.5-6.6); NEUTROPHILS % (AUTO) 81.7 %; PLT - PLATELET COUNT 193 10^3/uL (130-450); RED BLOOD COUNT 2.99 10^6/uL (4.70-6.10); RED CELL DISTRIBUTION WIDTH 13.9 % (12.0-15.0); WHITE BLOOD COUNT 8.1 x10^3/uL (4.8-10.8)
[2022-02-21 14:50] LABS: VBG BASE EXCESS -1.1 mmol/L (-2 - +2); VBG OXYGEN SATURATION 33.6 % (60-80); VBG PCO2 48.1 mmHg (41-51); VBG PH 7.333 (7.31-7.41); VBG PO2 20.5 mmHg (25-47); VBG TOTAL CO2 26.4 mmol/L (24-29)
[2022-02-21 15:01] LABS: ALBUMIN 2.6 g/dL (3.2-5.5); ALBUMIN/GLOBULIN RATIO 0.7 (1.0-2.2); BILIRUBIN,TOTAL 0.6 mg/dL (0.2-1.0); CALCIUM 8.5 mg/dL (8.5-10.3); MAGNESIUM 1.9 mg/dL (1.7-2.8); POTASSIUM 4.2 mmol/L (3.5-5.0); TOTAL PROTEIN 6.6 g/dL (6.7-8.2)
--- NOTE | 2022-02-21 15:01 | XRAY Report ---
PROCEDURE: Chest 1 View X-Ray INDICATIONS: DYSPNEA TECHNIQUE: One view of the chest was acquired. COMPARISON: 02/02/2022 plain film FINDINGS: Surgical changes and devices: Left-sided pacer. Lungs and pleura: No pneumothorax. Moderate patchy airspace opacity within the left lung base. Small left pleural effusion. Mediastinum: Mediastinal contours appear normal. Heart size is normal. Bones and chest wall: No suspicious bony lesions. Overlying soft tissues appear unremarkable. IMPRESSION: Left lower lobe pneumonia with small parapneumonic effusion. Follow-up PA and lateral chest x-rays or chest CT is recommended to ensure resolution, and to exclude underlying neoplasm. Reviewed by: Yovana Cota MD on 02/21/2022 3:00 PM PDT Approved by: Yovana Cota MD on 02/21/2022 3:00 PM PDT Station ID: [id number]
[2022-02-21] MEDS ORDERED: FUROSEMIDE 40 MG/4 ML VIAL IVP STA (15:22)
[2022-02-21] MEDS ORDERED: cefTRIAXone 1 GM in SODIUM CHLORIDE 0.9% MINIBAG 100 ML IV STA (15:22)
[2022-02-21] MEDS ORDERED: POTASSIUM CHLORIDE 20 MEQ TABLET PO STA (15:22)
--- NOTE | 2022-02-21 15:24 | ED Physician Documentation ---
PD HPI DYSPNEA - Stated complaint Stated Complaint: SOA,HIGH BP - Chief complaint Chief Complaint: Resp - History obtained from History obtained from: Patient, Family - Additional information Additional information: 76-year-old gentleman with history of CKD, anemia, COPD and CHF presents with shortness of breath of a months duration. He was quite sick at the beginning of the month with cough and cold and took a Z-Maurilio and improved somewhat but since has gotten worse again. He was sent from the clinic for evaluation today. He is post to be on chronic Lasix but has been noncompliant as he ran out of his potassium. Now has both. No fevers or chills. His daughter notes about a 16 pound weight gain over the last couple of weeks. He does have pedal edema. Review of Systems Ten Systems: 10 systems reviewed and negative Constitutional: denies: Fever, Chills Throat: reports: Reviewed and negative Cardiac: denies: Chest pain / pressure, Palpitations Respiratory: reports: Dyspnea, Cough PD PAST MEDICAL HISTORY - Past Medical History Cardiovascular: Hypertension, High cholesterol, Peripheral Vascular Disease, Atrial fibrillation, Arrhythmia Respiratory: Asthma, Sleep apnea, CPAP use Neuro: None Endocrine/Autoimmune: Type 2 diabetes GI: GERD, Colon polyps, Chronic constipation : Benign prostate hypertrophy HEENT: None Psych: None Musculoskeletal: None Derm: None - Past Surgical History Past Surgical History: No General: Colonoscopy Cardiovascular: Pacemaker, Other Neuro: Other - Present Medications Home Medications: Ambulatory Orders Medication Instructions Recorded Confirmed Glipizide [Glipizide ER] 10 mg PO DAILY 12/16/14 02/21/22 Atorvastatin [Lipitor] 80 mg PO DAILY 02/23/17 11/01/21 Albuterol Sulfate [Proair Hfa 1 - 2 puffs INH Q4H PRN 12/01/20 02/21/22 Inhaler] Alogliptin Benzoate [Alogliptin] 25 mg PO DAILY 12/01/20 02/21/22 Azelastine HCl 2 spray NS BID 12/01/20 11/01/21 Carvedilol [Coreg] 12.5 mg PO BID 12/01/20 02/21/22 Docusate Sodium [Dulcolax Stool 100 mg PO BID PRN 12/01/20 11/01/21 Softener] Flecainide [Tambocar] 50 mg PO Q12H 12/01/20 02/21/22 Furosemide [Lasix] 40 mg PO DAILY PRN 12/01/20 02/21/22 Ipratropium [Atrovent] 1 puffs INH DAILY 12/01/20 11/01/21 Montelukast [Singulair] 10 mg PO QPM 12/01/20 02/21/22 Sitagliptin Phosphate [Januvia] 50 mg PO DAILY 12/01/20 11/01/21 Tamsulosin [Flomax] 0.4 mg PO DAILY 12/01/20 11/01/21 cloNIDine [Catapres] 0.1 mg PO QID PRN 12/01/20 02/21/22 Acetaminophen [Acetaminophen Extra 500 mg PO Q4HR PRN 11/01/21 02/21/22 Strength] Calcium Citrate/Vitamin D3 1 tab PO DAILY 11/01/21 02/21/22 [Calcium Cit 315 mg-Vit D3 5Mcg] Ferrous Sulfate 325 mg PO DAILY 11/01/21 02/21/22 Fluticasone Propion/Salmeterol 1 puffs IH BID 11/01/21 11/01/21 [Wixela 250-50 Inhub] Pantoprazole Sodium 40 mg PO DAILY 11/01/21 02/21/22 Potassium Chloride 10 meq PO DAILY 11/01/21 02/21/22 Tadalafil [Cialis] 10 - 20 mg ORAL PRN PRN 11/01/21 02/21/22 Amoxicillin 2 tab PO TID #60 cap 02/21/22 Tiotropium [facility] [Spiriva] 2 puffs INH DAILY 02/21/22 02/21/22 amLODIPine [Norvasc] 5 mg PO DAILY 02/21/22 02/21/22 - Allergies Allergies/Adverse Reactions: Allergies Allergy/AdvReac Type Severity Reaction Status Date / Time metformin AdvReac affects Verified 02/21/22 14:16 liver - Social History Does the pt smoke?: Yes Smoking Status: Former smoker Does the pt drink ETOH?: No Does the pt have substance abuse?: No - Immunizations Immunizations are current?: Yes - POLST Patient has POLST: No PD ED PE NORMAL - Vitals Vital signs reviewed: Yes - General General: Alert and oriented X 3, No acute distress - HEENT HEENT: PERRL, EOMI - Neck Neck: Supple, no meningeal sign, No bony TTP - Cardiac Cardiac: RRR, No murmur - Respiratory Respiratory: Other (Diminished at the left base, no other focal findings) - Abdomen Abdomen: Soft, Non tender - Extremities Extremities: Other (4+ pitting pedal edema up to the calves) - Neuro Neuro: Alert and oriented X 3, Normal speech Results - Vitals Vitals: Vital Signs - 24 hr 02/21/22 02/21/22 02/21/22 14:07 15:44 17:00 Temperature 36.5 C Heart Rate 91 90 85 Respiratory 22 18 22 Rate Blood Pressure 249/77 H 237/78 H 219/81 H O2 Saturation 97 100 98 Oxygen O2 Source Room air - EKG (time done) 1503 Rhythm: Other (Twelve-lead EKG at 1503 hrs. discloses normal sinus rhythm rate of 89, short VT interval and borderline prolonged QT) - Labs Labs: Laboratory Tests 02/21/22 02/21/22 02/21/22 14:44 14:44 14:44 WBC 8.1 RBC 2.99 L Hgb 9.1 L Hct 28.0 L MCV 93.6 MCH 30.4 MCHC 32.5 RDW 13.9 Plt Count 193 MPV 9.2 Neut # (Auto) 6.6 Lymph # (Auto) 0.6 L [place] # (Auto) 0.8 Eos # (Auto) 0.1 Baso # (Auto) 0.0 Absolute Nucleated RBC 0.00 Nucleated RBC % 0.0 VBG pH VBG pCO2 VBG pO2 VBG HCO3 VBG Total CO2 VBG O2 Saturation VBG Base Excess Sodium 136 Potassium 4.2 Chloride 104 Carbon Dioxide 25 Anion Gap 7.0 BUN 34 H Creatinine 2.0 H Estimated GFR (MDRD) 33 L Glucose 315 H Calcium 8.5 Magnesium 1.9 Total Bilirubin 0.6 AST 13 ALT 21 Alkaline Phosphatase 80 B-Natriuretic Peptide 468 H Total Protein 6.6 L Albumin 2.6 L Globulin 4.0 Albumin/Globulin Ratio 0.7 L 02/21/22 14:44 WBC RBC Hgb Hct MCV MCH MCHC RDW Plt Count MPV Neut # (Auto) Lymph # (Auto) [place] # (Auto) Eos # (Auto) Baso # (Auto) Absolute Nucleated RBC Nucleated RBC % VBG pH 7.333 VBG pCO2 48.1 VBG pO2 20.5 L VBG HCO3 25.0 VBG Total CO2 26.4 VBG O2 Saturation 33.6 L VBG Base Excess -1.1 Sodium Potassium Chloride Carbon Dioxide Anion Gap BUN Creatinine Estimated GFR (MDRD) Glucose Calcium Magnesium Total Bilirubin AST ALT Alkaline Phosphatase B-Natriuretic Peptide Total Protein Albumin Globulin Albumin/Globulin Ratio - Rads (name of study) Single view chest x-ray demonstrates a left pleural effusion with likely pneumonia Radiology: EMP read contemporaneously PD MEDICAL DECISION MAKING - ED course ED course: 76-year-old gentleman with COPD and CHF presents with shortness of breath, weight gain. Chest x-ray read as pneumonia with very mild effusion, could also be CHF related effusion especially since he has had a 16 pound weight gain. Here he was administered IV Lasix with 700 mL out and feeling much better. Given the possible pneumonia he did Received 1 g of Rocephin here and will treat with high-dose amoxicillin as an outpatient. Discussed the need with him and his daughter for repeat radiography of the chest. Departure - Departure Disposition: 01 Home, Self Care Clinical Impression: Congestive heart failure Pneumonia Qualifiers: Aspiration pneumonia type: unspecified Laterality: left Lung location: lower lobe of lung Condition: Stable Record reviewed to determine appropriate education?: Yes Instructions: ED CHF General, ED Pneumonia Adult Prescriptions: Amoxicillin 2 tab PO TID #60 cap Comments: Be sure to start taking all your meds again including your furosemide and potassium. You can start tomorrow. Also I am writing a prescription for possible pneumonia with antibiotics. I sent that to [facility] in [place]. Follow-up with your doctor in 2 days for recheck, return for new or worsening symptoms. As discussed given the abnormal x-ray you need to have a repeat x-ray in a few weeks to document clearance.
[2022-02-21] MEDS ORDERED: cloNIDine 0.1 MG TABLET PO STA (16:03)
[2022-02-21] MEDS ORDERED: cefTRIAXone 1 GM VIAL ONE (16:34)
[2022-02-21 17:01] VITALS: BP 219/81
== END 2022-02-21 17:25 | disposition home or self-care (01) ==
LOC: ED 14:00
DX: I11.0 Hypertensive heart disease with heart failure (principal); I50.9 Heart failure, unspecified; J18.9 Pneumonia, unspecified organism; J44.9 Chronic obstructive pulmonary disease, unspecified; E11.22 Type 2 diabetes mellitus with diabetic chronic kidney disease; I13.0 Hypertensive heart and chronic kidney disease with heart failure and stage 1 through stage 4 chronic kidney disease, or unspecified chronic kidney disease; N18.9 Chronic kidney disease, unspecified; I48.91 Unspecified atrial fibrillation; Z79.4 Long term (current) use of insulin; Z79.01 Long term (current) use of anticoagulants; Z87.891 Personal history of nicotine dependence
CPT/HCPCS: 36415; 71045; 80053; 82803; 83735; 83880; 85025; 93005; 96365; 96375; 99284; A9270

== ENCOUNTER 2022-03-14 14:11 | Outpatient (CLI) | payer OTHER ==
--- NOTE | 2022-03-14 15:00 | XRAY Report ---
PROCEDURE: Chest 2 View X-Ray INDICATIONS: PNEUMONIA TECHNIQUE: 2 view(s) of the chest. COMPARISON: None. FINDINGS: Left chest wall to the cardiac pacing device is unchanged from prior study and appears to be in appro priate position. Left pleural effusion and left basilar airspace disease have worsened in the interval since prior exa m. The right lung and pleural space are clear. IMPRESSION: Worsened left basilar airspace disease consistent with pneumonia. Adjacent pleural effus ion is also mildly worsened. Reviewed by: Cachorro Hernadez MD on 03/14/2022 2:58 PM PDT Approved by: Cachorro Hernadez MD on 03/14/2022 2:58 PM PDT Station ID: [id number]
== END 2022-03-14 14:12 | disposition home or self-care (01) ==
LOC: DI.S 14:11
PROVIDERS: ATTEND Nurse Practitioner Family
DX: J18.9 Pneumonia, unspecified organism (principal); J91.8 Pleural effusion in other conditions classified elsewhere

== ENCOUNTER 2022-05-01 12:28 | Outpatient (CLI) | payer OTHER ==
[2022-05-01 15:09] LABS: CREATININE 2.7 mg/dL (0.6-1.2)
== END 2022-05-01 12:29 | disposition home or self-care (01) ==
LOC: LAB.S 12:28
PROVIDERS: ATTEND Internal Medicine Nephrology
DX: N05.9 Unspecified nephritic syndrome with unspecified morphologic changes (principal)
CPT/HCPCS: 36415; 82565

== ENCOUNTER 2022-09-07 07:08 | Day surgery (SDC) | payer OTHER ==
[2022-09-07] MEDS ORDERED: LACTATED RINGERS 1,000 ML IV ONE (07:40)
--- NOTE | 2022-09-07 08:07 | ANESTHESIA ---
Pre-Anesthesia VS, & Labs - Diagnosis anemia - Procedure EGD Vital Signs: Temp Pulse Resp BP Pulse Ox O2 Flow Rate 36 C L 59 L 22 180/55 H 100 09/07/22 07:27 09/07/22 07:27 09/07/22 07:27 09/07/22 07:40 09/07/22 07:27 Height: 6 ft 1 in Weight (kg): 81.1 kg Body Mass Index: 23.6 BMI Classification: Normal - NPO >8 hours - Lab Results Current Lab Results: Laboratory Tests 09/07/22 07:45: POC Whole Bld Glucose 212 H Home Medications and Allergies Home Medications: Ambulatory Orders Cholecalciferol [Vitamin D3] 50 mcg PO DAILY 09/03/22 Cyanocobalamin (Vitamin B-12) [Vitamin B-12] 1,000 mcg PO DAILY 09/03/22 Ferrous Sulfate 325 mg PO DAILY 09/03/22 Folic Acid 0.8 mg PO DAILY 09/03/22 Multivitamin 1 each PO DAILY 09/03/22 Sertraline [Zoloft] 50 mg PO DAILY 09/03/22 Atorvastatin [Lipitor] 80 mg PO DAILY 02/23/17 Albuterol Sulfate [Proair Hfa Inhaler] 1 - 2 puffs INH Q4H PRN 12/01/20 Azelastine HCl 2 spray NS BID 12/01/20 Carvedilol [Coreg] 12.5 mg PO BID 12/01/20 Flecainide [Tambocar] 50 mg PO Q12H 12/01/20 Montelukast [Singulair] 10 mg PO QPM 12/01/20 Tamsulosin [Flomax] 0.4 mg PO DAILY 12/01/20 Fluticasone Propion/Salmeterol [[place]ixela 250-50 Inhub] 1 puffs IH BID 11/01/21 Pantoprazole Sodium 40 mg PO DAILY 11/01/21 Tiotropium [place] [Spiriva] 2 puffs INH DAILY 02/21/22 Apixaban [Eliquis] 2.5 mg PO DAILY 06/22/22 Cholecalciferol [Vitamin D3] 50 mcg PO DAILY 09/03/22 Cyanocobalamin (Vitamin B-12) [Vitamin B-12] 1,000 mcg PO DAILY 09/03/22 Ferrous Sulfate 325 mg PO DAILY 09/03/22 Folic Acid 0.8 mg PO DAILY 09/03/22 Multivitamin 1 each PO DAILY 09/03/22 Sertraline [Zoloft] 50 mg PO DAILY 09/03/22 Allergies/Adverse Reactions: Allergies Allergy/AdvReac Type Severity Reaction Status Date / Time metformin AdvReac affects Verified 05/11/22 18:16 liver Anes History & Medical History - Anesthetic History Anesthesia Complications: reports: No previous complications Family history of Anesthesia Complications: Denies Family history of Malignant Hyperthermia: Denies - Medical History Cardiovascular: reports: Congestive heart failure, Hypertension, High cholesterol, Coronary artery disease, Peripheral Vascular Disease, Atrial fibrillation, Arrhythmia, Other (METS<4) Pulmonary: reports: Asthma, COPD, Sleep apnea, CPAP use Gastrointestinal: reports: GERD, Colon polyps, Chronic constipation Urinary: reports: Benign prostate hypertrophy, Other Neuro: reports: None Musculoskeletal: reports: Fatigue Endocrine/Autoimmune: reports: Type 2 diabetes Blood Disorders: reports: None Skin: reports: None Smoking Status: Former smoker - Surgical History General: reports: Colonoscopy, EGD Cardiothoracic: reports: Pacemaker, Other (ablation, CEA) Urologic: reports: Bladder surgery Neurologic: reports: Other Exam General: Alert, Oriented x3, Cooperative Dental: WNL Mouth Openin Fingerbreadth Neck Mobility: Normal Mallampati classification: I Thyromental Distance: 4-6 cm Respiratory: Lungs clear Cardiovascular: Regular rate Plan Anesthesia Type: General, Total IV Consent for Procedure(s) Verified and Reviewed: Yes Code Status: Attempt Resuscitation ASA classification: 4-Incapacitating disease Is this case an emergency?: No
[2022-09-07] MEDS ORDERED: PROPOFOL 200 MG/20 ML VIAL IVP ONE (08:14)
[2022-09-07] MEDS ORDERED: LIDOCAINE-MPF 2% 5 ML VIAL ONE (08:14)
[2022-09-07] MEDS ORDERED: LACTATED RINGERS 600 ML IV ONE (08:47)
[2022-09-07 09:16] VITALS: BP 123/56
--- NOTE | 2022-09-07 14:07 | ANESTHESIA POST OP EVALUATION ---
Anesthesia Post Eval - Post Anesthesia Eval Vitals: Last Vital Signs Temp 36.0 C L 09/07/22 09:15 Pulse 60 09/07/22 09:15 Resp 18 09/07/22 09:15 BP 123/56 L 09/07/22 09:15 Pulse Ox 97 09/07/22 09:15 O2 Flow Rate CV Function Including HR & BP: Stable Pain Control: Satisfactory Nausea & Vomiting: Negative Mental Status: Baseline Respiratory Status: Airway Patent Hydration Status: Satisfactory Anesthesia Complications: None
== END 2022-09-07 07:09 | disposition home or self-care (01) ==
LOC: SDS 07:08
PROVIDERS: ATTEND Surgery
PROC: 0DB78ZX Excision of Stomach, Pylorus, Via Natural or Artificial Opening Endoscopic, Diagnostic (ICD-10-PCS; 2022-09-07)
PROC: 0DB98ZX Excision of Duodenum, Via Natural or Artificial Opening Endoscopic, Diagnostic (ICD-10-PCS; principal; 2022-09-07 08:30)
DX: K21.9 Gastro-esophageal reflux disease without esophagitis (principal); R12 Heartburn; D64.9 Anemia, unspecified; J44.9 Chronic obstructive pulmonary disease, unspecified; G47.33 Obstructive sleep apnea (adult) (pediatric); I48.91 Unspecified atrial fibrillation; I13.0 Hypertensive heart and chronic kidney disease with heart failure and stage 1 through stage 4 chronic kidney disease, or unspecified chronic kidney disease; N18.9 Chronic kidney disease, unspecified; I50.9 Heart failure, unspecified; E11.22 Type 2 diabetes mellitus with diabetic chronic kidney disease; Z87.19 Personal history of other diseases of the digestive system; Z87.891 Personal history of nicotine dependence
CPT/HCPCS: 43239; J7120

== ENCOUNTER 2022-09-10 10:03 | Inpatient (IN) | payer OTHER ==
[2022-09-10] MEDS ORDERED: IPRATROPIUM/ALBUTEROL 3 ML NEB INH STA (10:12)
[2022-09-10 10:25] LABS: BASOPHILS # (AUTO) 0.1 10^3/uL (0.0-0.1); BASOPHILS % (AUTO) 0.9 %; EOSINOPHILS # (AUTO) 0.1 10^3/uL (0.0-0.7); EOSINOPHILS % (AUTO) 2.6 %; HCT - HEMATOCRIT 34.5 % (42.0-52.0); HGB - HEMOGLOBIN 11.4 g/dL (14.0-18.0); LYMPHOCYTES # (AUTO) 0.4 10^3/uL (1.5-3.5); MEAN CORPUSCULAR HEMOGLOBIN 30.6 pg (27.0-31.0); MEAN CORPUSCULAR VOLUME 92.7 fL (80.0-94.0); MEAN PLATELET VOLUME 10.1 fL (7.4-11.4); MONOCYTES # (AUTO) 0.7 10^3/uL (0.0-1.0); MONOCYTES % (AUTO) 13.7 %; NEUTROPHILS # (AUTO) 4.1 10^3/uL (1.5-6.6); NEUTROPHILS % (AUTO) 75.6 %; PLT - PLATELET COUNT 123 10^3/uL (130-450); RED BLOOD COUNT 3.72 10^6/uL (4.70-6.10); RED CELL DISTRIBUTION WIDTH 14.1 % (12.0-15.0); WHITE BLOOD COUNT 5.4 x10^3/uL (4.8-10.8)
[2022-09-10 10:38] LABS: ALBUMIN 2.7 g/dL (3.2-5.5); BILIRUBIN,TOTAL 0.6 mg/dL (0.2-1.0); CALCIUM 8.2 mg/dL (8.5-10.3); CREATININE 3.1 mg/dL (0.6-1.2); POTASSIUM 4.2 mmol/L (3.5-5.0); TOTAL PROTEIN 5.5 g/dL (6.7-8.2)
--- NOTE | 2022-09-10 10:39 | XRAY Report ---
PROCEDURE: Chest 1 View X-Ray INDICATIONS: SOA TECHNIQUE: One view of the chest was acquired. COMPARISON: 03/14/2022. FINDINGS: Surgical changes and devices: Pacemaker. Lungs and pleura: Continued or recurrent left basilar atelectasis versus consolidation. Continued mi ld to moderate left pleural effusion. Mediastinum: Mediastinal contours appear normal. Heart size is normal. Bones and chest wall: No suspicious bony lesions. Overlying soft tissues appear unremarkable. IMPRESSION: Persistent or recurrent left basilar consolidation and pleural fluid. Comment: Consider chest CT with contrast. Reviewed by: Lenin Richards MD on 09/10/2022 10:37 AM [facility] Approved by: Lenin Richards MD on 09/10/2022 10:37 AM [facility] Station ID: [id number]
[2022-09-10 11:40] LABS: CORONAVIRUS 229E-RESP PCR NOT DETECTED; CORONAVIRUS HKU1-RESP PCR NOT DETECTED; CORONAVIRUS NL63-RESP PCR NOT DETECTED; CORONAVIRUS OC43-RESP PCR NOT DETECTED; HUMAN METAPNEUMOVIRUS NOT DETECTED; INFLUENZA A- RESP PCR PANEL NOT DETECTED; RHINOVIRUS/ENTEROVIRUS DETECTED; SARS-CoV-2 -RESP PCR PANEL NOT DETECTED
[2022-09-10 11:41] LABS: B. PARAPERTUSSIS- RESP PCR PAN NOT DETECTED; B. PERTUSSIS- RESP PCR PANEL NOT DETECTED; C. PNEUMONIAE- RESP PCR PANEL NOT DETECTED; INFLUENZA B - RESP PCR PANEL NOT DETECTED; M. PNEUMONIAE- RESP PCR PANEL NOT DETECTED; PARAINFLUENZA VIRUS 1 NOT DETECTED; PARAINFLUENZA VIRUS 2 NOT DETECTED; PARAINFLUENZA VIRUS 3 NOT DETECTED; PARAINFLUENZA VIRUS 4 NOT DETECTED; RSV- RESP PCR PANEL NOT DETECTED
[2022-09-10] MEDS ORDERED: predniSONE 20 MG TABLET PO STA (11:43)
--- NOTE | 2022-09-10 12:14 | ED Physician Documentation ---
PD HPI DYSPNEA - Stated complaint Stated Complaint: SOA - Chief complaint Chief Complaint: Resp - History obtained from History obtained from: Patient - Additional information Additional information: Patient is a 77-year-old male with a history of COPD presenting for evaluation of feeling worsening shortness of breath this morning. He has been ill for the past 2 to 3 days with cough and congestion. The cough is productive of clear to yellow mucus. He also feels nasal congestion. He was at the hospital to get outpatient labs when he started feeling more short of breath and was tripoding and a rapid response was called. He denies fever, chest pain. He does report lower extremity swelling and has been off his diuretic due to concerns for his kidneys.He does have a nebulizer at home and has been using his treatments as recommended. He does not use home oxygen. Review of Systems Constitutional: denies: Fever Nose: reports: Congestion Cardiac: denies: Chest pain / pressure Respiratory: reports: Dyspnea, Cough GI: denies: Abdominal Pain, Vomiting : denies: Dysuria Musculoskeletal: reports: Extremity swelling Neurologic: denies: Headache PD PAST MEDICAL HISTORY - Past Medical History Cardiovascular: Congestive heart failure, Hypertension, High cholesterol, Coronary artery disease, Peripheral Vascular Disease, Atrial fibrillation, Arrhythmia, Other (METS<4) Respiratory: Asthma, COPD, Sleep apnea, CPAP use Neuro: None Endocrine/Autoimmune: Type 2 diabetes GI: GERD, Colon polyps, Chronic constipation : Benign prostate hypertrophy, Other HEENT: Chronic vision loss, Chronic hearing loss Psych: Post traumatic stress disorder Musculoskeletal: Fatigue Derm: None - Past Surgical History Past Surgical History: No General: Colonoscopy, EGD Cardiovascular: Pacemaker, Other (ablation, CEA) Neuro: Other - Present Medications Home Medications: Ambulatory Orders Medication Instructions Recorded Confirmed Atorvastatin [Lipitor] 80 mg PO DAILY 02/23/17 09/03/22 Albuterol Sulfate [Proair Hfa 1 - 2 puffs INH Q4H PRN 12/01/20 09/03/22 Inhaler] Azelastine HCl 2 spray NS BID 12/01/20 09/03/22 Carvedilol [Coreg] 12.5 mg PO BID 12/01/20 09/03/22 Flecainide [Tambocar] 50 mg PO Q12H 12/01/20 09/03/22 Montelukast [Singulair] 10 mg PO QPM 12/01/20 09/03/22 Tamsulosin [Flomax] 0.4 mg PO DAILY 12/01/20 09/03/22 Fluticasone Propion/Salmeterol 1 puffs IH BID 11/01/21 09/03/22 [Wixela 250-50 Inhub] Pantoprazole Sodium 40 mg PO DAILY 11/01/21 09/03/22 Tiotropium [place] [Spiriva] 2 puffs INH DAILY 02/21/22 09/03/22 Apixaban [Eliquis] 2.5 mg PO DAILY 06/22/22 09/07/22 Cholecalciferol [Vitamin D3] 50 mcg PO DAILY 09/03/22 09/03/22 Cyanocobalamin (Vitamin B-12) 1,000 mcg PO DAILY 09/03/22 09/03/22 [Vitamin B-12] Ferrous Sulfate 325 mg PO DAILY 09/03/22 09/03/22 Folic Acid 0.8 mg PO DAILY 09/03/22 09/03/22 Multivitamin 1 each PO DAILY 09/03/22 09/03/22 Sertraline [Zoloft] 50 mg PO DAILY 09/03/22 09/03/22 - Allergies Allergies/Adverse Reactions: Allergies Allergy/AdvReac Type Severity Reaction Status Date / Time metformin AdvReac affects Verified 05/11/22 18:16 liver - Social History Does the pt smoke?: Yes Smoking Status: Former smoker Does the pt drink ETOH?: No Does the pt have substance abuse?: No - Immunizations Immunizations are current?: Yes - POLST Patient has POLST: No PD ED PE NORMAL - General General: Alert and oriented X 3, No acute distress, Well developed/nourished - HEENT HEENT: Atraumatic, Moist mucous membranes, Pharynx benign - Neck Neck: Supple, no meningeal sign - Cardiac Cardiac: RRR, No murmur - Respiratory Respiratory: Other (Mild tachypnea, diminished breath sounds throughout Left greater than right) - Abdomen Abdomen: Soft, Non tender, Non distended - Derm Derm: Warm and dry - Extremities Extremities: Other (Bilateral lower extremity edema, no calf tenderness) Results - Vitals Vitals: Vital Signs - 24 hr 09/10/22 09/10/22 09/10/22 10:05 10:28 10:44 Temperature 37.6 C Heart Rate 85 85 78 Respiratory 20 22 21 Rate Blood Pressure 161/98 H 150/92 H O2 Saturation 86 L 98 If not protocol 2 2 : Oxygen Flow, liters/minute 09/10/22 09/10/22 09/10/22 11:58 12:30 13:00 Temperature Heart Rate 79 78 80 Respiratory 24 20 14 Rate Blood Pressure 118/85 H 124/62 129/80 O2 Saturation 98 98 97 If not protocol 2 2 : Oxygen Flow, liters/minute 09/10/22 09/10/22 09/10/22 13:30 14:00 14:30 Temperature 36.5 C Heart Rate 77 77 79 Respiratory 24 16 20 Rate Blood Pressure 128/82 H 150/78 H 157/82 H O2 Saturation 96 99 92 If not protocol : Oxygen Flow, liters/minute 09/10/22 09/10/22 09/10/22 14:43 15:00 15:30 Temperature Heart Rate 78 83 85 Respiratory 23 21 23 Rate Blood Pressure 162/73 H 160/72 H O2 Saturation 92 92 If not protocol : Oxygen Flow, liters/minute 09/10/22 09/10/22 09/10/22 16:00 16:30 17:00 Temperature Heart Rate 83 88 88 Respiratory 16 18 18 Rate Blood Pressure 123/98 H 160/100 H 164/87 H O2 Saturation 92 92 92 If not protocol : Oxygen Flow, liters/minute Oxygen O2 Source Room air Oxygen Flow Rate 2 - EKG (time done) 1021 Rate: Rate (enter#) (80) Rhythm: NSR [place]: Normal Ischemia: No: ST elevation c/w ischemia - Labs Labs: Laboratory Tests 09/10/22 09/10/22 09/10/22 10:12 10:12 10:17 WBC 5.4 RBC 3.72 L Hgb 11.4 L Hct 34.5 L MCV 92.7 MCH 30.6 MCHC 33.0 RDW 14.1 Plt Count 123 L MPV 10.1 Neut # (Auto) 4.1 Lymph # (Auto) 0.4 L [place] # (Auto) 0.7 Eos # (Auto) 0.1 Baso # (Auto) 0.1 Absolute Nucleated RBC 0.00 Nucleated RBC % 0.0 Sodium Potassium Chloride Carbon Dioxide Anion Gap BUN Creatinine Estimated GFR (MDRD) Glucose Calcium Iron 57 TIBC 256 % Saturation 22 Transferrin 183 Ferritin 96.8 Total Bilirubin AST ALT Alkaline Phosphatase B-Natriuretic Peptide Total Protein Albumin Globulin Albumin/Globulin Ratio Lipase Nasal Adenovirus (PCR) Nasal B. parapertussis DNA (PCR) Nasal Coronavir 229E PCR Nasal Coronavir HKU1 PCR Nasal Coronavir NL63 PCR Nasal Coronavir OC43 PCR Nasal Enterovir/Rhinovir PCR Nasal Influenza B PCR Nasal Influenza A PCR Nasal Parainfluen 1 PCR Nasal Parainfluen 2 PCR Nasal Parainfluen 3 PCR Nasal Parainfluen 4 PCR Nasal RSV (PCR) Nasal B.pertussis DNA PCR Nasal C.pneumoniae (PCR) True Human Metapneumo PCR Nasal M.pneumoniae (PCR) Nasal SARS-CoV-2 (PCR) 09/10/22 09/10/22 09/10/22 10:17 10:17 10:19 WBC RBC Hgb Hct MCV MCH MCHC RDW Plt Count MPV Neut # (Auto) Lymph # (Auto) [place] # (Auto) Eos # (Auto) Baso # (Auto) Absolute Nucleated RBC Nucleated RBC % Sodium 130 L Potassium 4.2 Chloride 99 L Carbon Dioxide 24 Anion Gap 7.0 BUN 35 H Creatinine 3.1 H Estimated GFR (MDRD) 20 L Glucose 261 H Calcium 8.2 L Iron TIBC % Saturation Transferrin Ferritin Total Bilirubin 0.6 AST 14 ALT 16 Alkaline Phosphatase 112 B-Natriuretic Peptide 353 H Total Protein 5.5 L Albumin 2.7 L Globulin 2.8 Albumin/Globulin Ratio 1.0 Lipase 22 Nasal Adenovirus (PCR) NOT DETECTED Nasal B. parapertussis DNA (PCR) NOT DETECTED Nasal Coronavir 229E PCR NOT DETECTED Nasal Coronavir HKU1 PCR NOT DETECTED Nasal Coronavir NL63 PCR NOT DETECTED Nasal Coronavir OC43 PCR NOT DETECTED Nasal Enterovir/Rhinovir PCR DETECTED A Nasal Influenza B PCR NOT DETECTED Nasal Influenza A PCR NOT DETECTED Nasal Parainfluen 1 PCR NOT DETECTED Nasal Parainfluen 2 PCR NOT DETECTED Nasal Parainfluen 3 PCR NOT DETECTED Nasal Parainfluen 4 PCR NOT DETECTED Nasal RSV (PCR) NOT DETECTED Nasal B.pertussis DNA PCR NOT DETECTED Nasal C.pneumoniae (PCR) NOT DETECTED True Human Metapneumo PCR NOT DETECTED Nasal M.pneumoniae (PCR) NOT DETECTED Nasal SARS-CoV-2 (PCR) NOT DETECTED PD MEDICAL DECISION MAKING - ED course Complexity details: reviewed results, re-evaluated patient, d/w patient ED course: Pt brought in as rapid response for SOA. Has been ill in recent days with congestion and cough. H/O COPD and leg edema. Has recently been off diuretics due to worsening renal function. Pt given nebs and prednisone with some initial improvement. Labs reviewed and + for rhinovirus. Has had L pleural effusion since February. Pt doing better and plan for discharge but became very distressed with his breathing just sitting to edge of bed. Given additional nebs and 1 dose of lasix. Pt continues to be quite dyspneic with minimal efforts. Pt in agreement with plan for hospital admission. Reviewed CT results with pt including finding of pulmonary nodule and need for follow up for nodule. Departure - Departure Disposition: ED Place in Observation Clinical Impression: COPD with exacerbation, Pleural effusion, Right lower lobe pulmonary nodule, Rhinovirus Condition: Stable Discharge Date/Time: 09/10/22 18:13
--- NOTE | 2022-09-10 13:21 | CT Report ---
PROCEDURE: CHEST WO INDICATIONS: L pleural effuson TECHNIQUE: Noncontrast 1mm axial images were acquired from the pulmonary apices to the posterior costophrenic an gles. Axial 5 mm soft tissue kernel reconstructions were performed as well as 8 mm axial MIP and cor onal and sagittal 5 mm reformations. For radiation dose reduction, the following was used: automate d exposure control, adjustment of mA and/or kV according to patient size. COMPARISON: Chest radiographs dated 09/10/2022, 03/14/2022, 02/21/2022 and 02/02/2022. CT angiogram of c hest dated 11/01/2021. FINDINGS: Image quality: Excellent. Lungs and pleura: Moderate to severe centrilobular emphysema is again seen unchanged from prior study . Scattered scarring/atelectasis in periphery of bilateral lung lozano are seen. Moderate left pleura l effusion is seen with adjacent left lower lobe atelectasis. 6 mm solid nodule is again noted in lat eral aspect of right lower lobe unchanged from prior studies and likely represent benign process. No significant right-sided pleural effusion. No pneumothorax. Central and peripheral airways are patent and normal in caliber. Mediastinum: Heart size is enlarged. No pericardial effusion. Pacemaker leads are noted in right a trium and right ventricle. Mildly prominent mediastinal lymph nodes are seen measures up to 1 cm in s hort axis diameter in left paratracheal space. 1.9 cm right hilar lymph node is again seen unchanged from prior studies. Thoracic aorta and central pulmonary arteries are normal in size. Moderate ather osclerotic calcifications are noted in coronary vessels and thoracic aorta. Esophagus is normal in ca liber. No hiatal hernia. Bones and chest wall: Left chest wall pacemaker is seen. No suspicious bony lesions. No vertebral b bri compression fractures. No axillary or supraclavicular adenopathy by size criteria. The thyroid is mildly prominent in size with suggestion of bilateral hypodense nodules unchanged from prior study . Abdomen: Visualized upper abdominal solid organs and bowel loops appear normal in the absence of con trast. IMPRESSION: 1. Moderate left-sided pleural effusion with adjacent dependent atelectasis in left upper and lower l obes. No right-sided pleural effusion. No pneumothorax. 2. Moderate to severe centrilobular emphysema. Scattered scarring/atelectasis throughout periphery of bilateral lung lozano. 3. Cardiomegaly with pacemaker leads in place. No pericardial effusion. 4. Mildly enlarged mediastinal lymph nodes and stable prominent right hilar node and may represent re active inflammatory nodes. 5. Stable 6 mm solid nodule in right lower lobe. CLINICAL RECOMMENDATION STATEMENTS: In patients <35 years with an ITN detected on CT, MRI, or extrathyroidal ultrasound, the Committee re commends further evaluation with dedicated thyroid ultrasound if the nodule is "e1 cm and has no susp icious imaging features, and if the patient has normal life expectancy. In patients "e35 years with an ITN detected on CT, MRI, or extrathyroidal ultrasound, the Committee r ecommends further evaluation with dedicated thyroid ultrasound if the nodule is "e1.5 cm and has no s uspicious imaging features, and if the patient has normal life expectancy. (ACR, 2014) Reviewed by: Esa Acosta MD on 09/10/2022 1:20 PM PST Approved by: Esa Acosta MD on 09/10/2022 1:20 PM PST Station ID: [id number]
[2022-09-10 14:15] LABS: % IRON SATURATION 22 % (20-50); IRON 57 ug/dL (45-182); TOTAL IRON BINDING CAPACITY 256 ug/dL (250-450); TRANSFERRIN 183 mg/dL (180-329)
[2022-09-10] MEDS ORDERED: ALBUTEROL NEB 2.5 MG/3 ML INH STA (14:23)
[2022-09-10] MEDS ORDERED: FUROSEMIDE 40 MG/4 ML VIAL IVP STA (14:23)
[2022-09-10] MEDS ORDERED: ALBUTEROL NEB 2.5 MG/3 ML INH ONE (14:39)
[2022-09-10] MEDS ORDERED: ACETAMINOPHEN 325 MG TABLET PO PRN (17:09)
[2022-09-10] MEDS ORDERED: oxyCODONE 5 MG TABLET PO PRN (17:09)
[2022-09-10] MEDS ORDERED: ONDANSETRON 4 MG/2 ML VIAL IVP PRN (17:09)
[2022-09-10] MEDS ORDERED: ONDANSETRON ODT 4 MG TABLET TL PRN (17:09)
[2022-09-10] MEDS ORDERED: ALBUTEROL NEB 2.5 MG/3 ML INH PRN (17:12)
[2022-09-10] MEDS ORDERED: SODIUM CHLORIDE 0.9% 1,000 ML IV SCH (18:00)
--- NOTE | 2022-09-10 18:13 | HISTORY & PHYSICAL EXAMINATION ---
History and Physical - History and Physical A 77-year-old white male who is followed by LEXY Brock. He appears to have severe, severe emphysema on by history. He also has obstructive sleep apnea. He was sitting in the lab waiting area waiting to get labs drawn. This is in preparation for EGD. He became so weak and short of breath there was a rapid response in the waiting room. His history is that of presentation to [facility] with shortness of breath and dyspnea exertion September 26, 2021. He also was passing dark stool. Hemoglobin was 6.1 and he was transferred to [facility] where he received blood transfusion and underwent an EGD showing grade C esophagitis and duodenal erosions. Rare fungal hyphae present on the surface. No metaplasia dysplasia or malignancy. Apixaban that was used for atrial fibrillation anticoagulation was held. It was then resumed at discharge, but when he saw his casket inspector, hemoglobin was again 7.5 and apixaban was held again. Hematology put him on iron. Also supposed to be taking B12 and folic acid. He also received iron infusions. By November 03, 2021 his hemoglobin was 11.4 and his apixaban was resumed in November 2021. By August 30, 2022 he was short of breath very easily again. He started feeling weak and short of breath again, so labs were repeated and he was found to have anemia of 6.2 hemoglobin. Hematology required another EGD and he was seen by Dr. Franklin on August 30. He underwent an EGD with biopsies on September 07. However, I can see the preop evaluation from anesthesia but there is no EGD report yet entered into the medical record. Usually those are generated straight from the EGD computer/tower. They may not have been scanned yet. In addition to the weakness from anemia, he started feeling ill for the last 2 to 3 days with new cough and congestion. The cough is productive of clear to yellow mucus. His nose is stopped up, he has a postnasal drip. His legs have been getting more swollen and edematous. He says he has been off his diuretic because his doctors were worried about his kidneys. He does have COPD and uses a nebulizer at home and has been using those treatments as recommended. He is not on home oxygen. He was in the waiting area of the lab Where he was noticed to be tripoding. In obvious respiratory distress. And a rapid response was called. He was taken to the emergency room. At 1005 this morning his temperature was 37.6. Heart rate 85. Blood pressure 161/98. Respirations 20. 86% on room air. He was put on 2 L where he saturated at 98%. The ER provider found him to be alert and oriented. No acute distress. Mild tachypnea with diminished breath sounds throughout all lung lozano with the left worse than the right. Bilateral lower extremity edema without calf tenderness. A chest x-ray showed a moderate left pleural effusion with adjacent dependent atelectasis in the left upper and lower lobes. No right-sided pleural effusion. He has moderate to severe centrilobular emphysema. He has scarring and atelectasis throughout the periphery of both lung lozano. He has cardiomegaly with pacemaker leads in place. Mildly enlarged mediastinal lymph nodes and stable prominent right hilar nodes representing reactive inflammatory nodes. His viral panel was positive for rhinovirus. The ER provider gave him albuterol twice. DuoNeb once. And prednisone 60 mg. She thought he was going to be able to leave but every time he tried to get up and walk, he would desaturate and become quickly short of breath again. She given Lasix 40 mg IV push around 2:30 in the afternoon. He still did not improve with oxygenation and she is now asked for observation status to see if we can turn this patient around with the shortness of breath and wheezing. Chest/CTA October 2021 with mild left pleural effusion; chest x-ray December 2020 had no pleural effusion nor did May 2018 Chest x-ray February 2022 with pleural effusion and it was thought to be from pneumonia. No follow up done per the patient. He was exposed to agent orange in [facility]. He is a smoker. In September 2021 he weighed 77.7 kg. On June 22 he weighed 75.9 kg. September 07 he was 81 kg. Today he is 99 kg. This latter weight was done in the emergency room. Past medical history 1 colon polyps. Colonoscopy 2012. Colonoscopy done January 2021 and follow-up 2. COPD By history. I do not have access to his office medical records and there are no pulmonary function studies described in our EMR. 3. Atrial fibrillation. status post pacemaker for sick sinus syndrome after failing ablation. Long-term use of anticoagulants 4. Chronic kidney disease stage III followed by AMAIR[facility] Jalloh. 5. Peripheral vascular disease, status post carotid endarterectomy 6. Coronary artery disease with diastolic congestive heart failure. Followed by Dr Neff at [facility] 7. Type 2 diabetes mellitus 8 status post pacemaker for sick sinus syndrome after failing ablation 9. Iron deficiency anemia of chronic GI blood loss. Followed by [facility]. 10. Bladder cancer in remission Allergy to Metformin Medication list that has not been reconciled by pharmacy: Azelastine Carvedilol Apixaban Ferrous sulfate Flomax Folic acid Lipitor Multivitamin Protonix Zoloft ProAir HFA Fluticasone blister pack twice daily Singulair daily Tiotropium daily Flecainide Vitamin B12 Vitamin D3 Family history: Father of heart failure at the age is 85 Mother of stroke 4 hoursafter having a splenectomy for an MVA at the age of 76 3 brothers, 1 of complications of cirrhosis and heroin abuse, 1 alive p lobectomy for lung cancer. 1 alive and healthy. 2 sisters and 1 of Covid Pneumonia 4 Children healthy Social history: Patient is a smoker. Started age 18. Smoked in the [employer], and in [place]. 100% service connected. At most 2 ppd for 11 years when worked w [employer] in [place]. Didn't smoke for 10 years. Resumed. Then 1 ppd, Trying to quit now. for 2 years. in early 2020 of lymphoma, and he moved in with one of his children. No history of alcohol abuse. From [place], then [place] then [place] then here to be close to daughter in 2012. ROS: Constitutionalfatigue, malaise, slight loss of appetite. But no weight loss, no fevers, no sweats ENTnasal congestion, rhinorrhea, presbyopia, presbycusis Pulmonary:Cough, chest congestion, dyspnea on exertion, chronic daily cough, phlegm production daily, worse recently in the last few days with this "cold". No hemoptysis. No pleuritic chest pain.He has been sick with some type of "pneumonia" off and on for the last 6 to 9 months. Cardiacdyspnea on exertion, increasing pedal edema in the last 2 weeks, edema is gone first thing in the morning after getting up from bed, and gets gradually worse over the course of the day. Denies chest pain, palpitations, and no orthopnea Aren change in bowel habits, decreased appetite, no blood in his stool. No vomiting of blood. Denies any esophageal pain or dysphagia GUnocturia is mild, a little bit of hesitancy, occasional urgency. No hematuria no flank pain Musculoskeletalmorning stiffness that gets better as the morning goes on. No joint effusions or hot joints. Endocrineno polyuria, polydipsia, polyphagia. No heat or cold intolerance. Psychiatricfatalistic. "If it is my time to go, it is my time to go. 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 With her loss, that responsibilities transition to his daughter. He just never got used to being responsible for his own data. Still occasionally drives. Can dress himself, feed himself. No focal deficits. No neuropathy. Examination: This gentleman is in respiratory distress and will start to cough and get tachypneic if he talks too much. 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 This causes him to go into respiratory distress, gasping cough, and it takes him 2 minutes to recover but he keeps on talking like a trooper. I can hear wheezing and stridor without my stethoscope. Temperature 36.2. Heart rate 84. Blood pressure 197/80. Respirations 20. 97% saturated on 2 L. ENT examination has a deeply nasal tone of voice, some rhinorrhea but no coryza. The back of the throat is cobblestoned but no exudate Neck has anterior cervical shotty adenopathy that is not tender. No bruits or JVD Lungs have wheezing, rhonchi, and I can hear whistling inspiratory stridor out of his neck as well as out of his nose. Cardiac exam has a regular rate and rhythm with a systolic ejection murmur Abdomen is soft, nontender, normal bowel sounds Extremities have edema. The left leg has 3+ edema from the knees down to the ankles. The right leg has 2+ edema. No open wounds, no bruising. Neurologically he is a vivacious gesticulating speaker. Sitting at about 35 to 40 degrees. No focal deficits. No facial asymmetry. Speech is normal. Sentence structure and normal. Alert and oriented to person place and time. For about 15 minutes we have his daughter on the phone with this as we go over advance care directives and our care plan. He follows the conversation and hears her both are in agreement with what we are planning Laboratory Tests 09/10/22 09/10/22 09/10/22 10:17 10:17 10:17 WBC 5.4 RBC 3.72 L Hgb 11.4 L Hct 34.5 L MCV 92.7 MCH 30.6 MCHC 33.0 RDW 14.1 Plt Count 123 L MPV 10.1 Neut # (Auto) 4.1 Lymph # (Auto) 0.4 L Sodium 130 L Potassium 4.2 Chloride 99 L Carbon Dioxide 24 Anion Gap 7.0 BUN 35 H Creatinine 3.1 H Estimated GFR (MDRD) 20 L Glucose 261 H Calcium 8.2 L Total Bilirubin 0.6 AST 14 ALT 16 Alkaline Phosphatase 112 B-Natriuretic Peptide 353 H Total Protein 5.5 L Albumin 2.7 L Globulin 2.8 Albumin/Globulin Ratio 1.0 Lipase 22 Nasal Enterovir/Rhinovir PCR 09/10/22 10:19 WBC RBC Hgb Hct MCV MCH MCHC RDW Plt Count MPV Neut # (Auto) Lymph # (Auto) Sodium Potassium Chloride Carbon Dioxide Anion Gap BUN Creatinine Estimated GFR (MDRD) Glucose Calcium Total Bilirubin AST ALT Alkaline Phosphatase B-Natriuretic Peptide Total Protein Albumin Globulin Albumin/Globulin Ratio Lipase Nasal Enterovir/Rhinovir PCR DETECTED A Chest x-ray has a persistent or recurrent left basilar consolidation and/or pleural effusion when compared to February 2022. Chest CT has moderate to severe centrilobular emphysema unchanged from a CT in October 2021. Moderate left pleural effusion with adjacent left lower lobe atelectasis. A 6 mm solid nodule is again noted in the lateral aspect of the right lower lobe unchanged from prior studies and likely represents a benign process. No right pleural effusion. No pneumothorax. Central and peripheral airways are patent and normal in caliber. The heart is enlarged. No pericardial effusion. Pacemaker leads in place. Mildly prominent mediastinal lymph nodes seen that are 1 cm in size. A 1.9 cm right hilar node is again seen. Unchanged from previous studies. Esophagus is normal in caliber. No hiatal hernia. Assessment/plan: 1. COPD with acute exacerbation As well as acute respiratory failure with hypoxia. Cause appears to be multifactorial. He has a cold With rhinovirus.. He has quite a bit of whistling nasal congestion and a congested cough and cobblestoning. He has elements of diastolic heart failure In a patient with known coronary artery disease.. And may have elements of cor pulmonale which would be understandable with such severe centrilobular emphysema in a longtime smoker. I do not have any echocardiogram in our EMR. On top of that he has a chronic left pleural effusion that has been present since at least February of this year. Plan: Observation status Nebulizers with DuoNeb on a fixed schedule, albuterol every 2 hours as needed Inhaled budesonide Solumedrol 40 mg IV tid Has already received 1 dose of IV Lasix in the ER that I will not repeat, considering his creatinine No antibiotics for now. He has received several abx treatments since 02/2022 Consider sending him home on nasal cannula oxygen. Obtain pulmonary function studies with DLCO to quantify the severity of his illness. That should be done in the outpatient setting. 2. Recurrent pleural effusion. This is a gentleman who is a smoker, exposed to agent orange. CT does not show a lung cancer and has been stable since October of this year. He has had a recent colonoscopy and has EGDs. The pleural effusion could be from congestive heart failure. He does not have cirrhosis. Plan: Continue to hold Eliquis. He last had a dose yesterday. He did not have a dose today. Order thoracentesis by ultrasound guidance for diagnostic tap. I discussed the risk of pneumothorax, infection, bleeding. This was with his daughter on the phone as well. Both feel that the effusion has been going on long enough and they attributed to pneumonia in February 2022 but now are reconsidering that. They want to know what the cause is because of this is neoplasm, that rather make plans on the basis of neoplasm as opposed to congestive heart failure. They may even consider palliative measures with no treatment if he has cancer. So this is important for them to find out. 3. Acute on chronic kidney insufficiency stage III. This gentleman's baseline creatinine appears to be about 1.2. It was over 2 and that is why his Lasix was discontinued. Now he is over 3 even before he received Lasix. His weight is significantly increased from last months of this month. Considering his leg edema this may be water weight. Plan: Renal ultrasound to make sure there is no hydronephrosis or obstruction. In the face of Lasix dosing being reduced, his creatinine has come up. He is not dehydrated.I told him to make sure he sees his operations processor in the next 1 to 2 weeks or to at least let him know what his kidneys are doing. 4. Diastolic heart failure, acute. On physical exam he has pedal edema. His lung exam is more convincing for rhonchi and viral infection than it is for crackles with pulmonary edema. He has no JVD. BNP is not severely elevated at 353. Again weight is significantly increased with leg edema. Plan: I will start Lasix 83 cc an hour for a liter a day of gentle hydration. Hold Lasix for now. Check an echocardiogram to see if he has pulmonary hypertension with cor pulmonale versus diastolic heart failure or new systolic dysfunction. We will try and see if I get an old echocardiogram that he may have with his casket inspector and his previous history of A. fib. 5. History of iron deficiency anemia. This has been associated with his history of duodenitis, esophagitis. He was just seen August 30 to get a repeat EGD with Dr. Franklin. EGD done September 07. No report in EMR yet. Hemoglobin today is acceptable. 11.1. Plan: Continue proton pump inhibitor Follow-up with oncology and Dr. Franklin when necessary Call HIM and see if we can get a report to review. 6. History of atrial fibrillation. This is why he is on anticoagulation. He is EKG today shows normal sinus rhythm. He takes Tambocor 50 mg every 12 hours. He takes carvedilol 12.5 mg twice daily. I will make sure that is resumed. Attestation of the patient will be discharged within 96 hours. DVT prophylaxis is his ongoing anticoagulation.
[2022-09-10] MEDS: methylPREDNISolone SUCCINATE 40 MG/ML VIAL IVP SCH ×2 (18:24→23:08)
[2022-09-10 20:33] LABS: INR 1.3 (0.8-1.2); PT - PROTHROMBIN TIME 13.8 secs (9.9-12.6)
[2022-09-10] MEDS ORDERED: WATER FOR INJECTION,STERILE 10 ML MC ONE (22:53)
[2022-09-10] MEDS: FLECAINIDE 50 MG TABLET PO SCH (23:11)
[2022-09-10] MEDS: carvediloL 12.5 MG TABLET PO SCH (23:11)
[2022-09-11] MEDS: SODIUM CHLORIDE FLUSH 0.9% 10 ML SYRINGE IVP SCH ×3 (01:00→16:58)
--- NOTE | 2022-09-11 03:09 | Ultrasound Report ---
PROCEDURE: Retroperitoneal INDICATIONS: new renal failure TECHNIQUE: Real-time scanning was performed of the retroperitoneal organs, with image documentation. COMPARISON: CT abdomen pelvis 07/17/2015. FINDINGS: Kidneys: Right kidney measures 12.4 cm long; left kidney measures 11.1 cm long. Right renal cortica l thickness is 1.7 cm; left renal cortical thickness is 1.6 cm. The renal cortex appears slightly inc reased in echogenicity bilaterally but there is preserved corticomedullary differentiation. No hydron ephrosis. Bilateral small renal cysts are demonstrated. There is a small hyperechoic focus within the left renal cortex measuring up to 1.0 x 0.6 cm which may represent an angiomyolipoma. Bladder: Pre-void bladder volume is 715 mL. Post-void residual is 452 mL. Pre-void images demonstr ate no intraluminal masses or stones. On pre-void images, bilateral ureteral jets are noted with col or Doppler interrogation. The prostate appears enlarged, measuring approximately 4.5 x 3.8 x 5.1 cm. Miscellaneous: There is a left pleural effusion. IMPRESSION: 1. No evidence of hydronephrosis. 2. Slightly increased renal echogenicity is nonspecific and the differential includes medical renal d isease or artifact. 3. Postvoid residual volume of 452 mL. 4. Partially visualized left pleural effusion. Reviewed by: Andrea Renee MD on 09/11/2022 3:08 AM PST Approved by: Andrea Renee MD on 09/11/2022 3:08 AM PST Station ID: [id number]
[2022-09-11] MEDS: BUDESONIDE 0.5 MG/2 ML NEB INH SCH ×3 (04:41→18:29)
[2022-09-11] MEDS: IPRATROPIUM/ALBUTEROL 3 ML NEB INH SCH ×6 (04:41→18:29)
[2022-09-11 04:56] LABS: HCT - HEMATOCRIT 33.8 % (42.0-52.0); HGB - HEMOGLOBIN 11.3 g/dL (14.0-18.0); LYMPHOCYTES % (AUTO) 9.6 %; MEAN CORPUSCULAR HEMOGLOBIN 30.7 pg (27.0-31.0); MEAN CORPUSCULAR HGB CONC 33.4 g/dL (32.0-36.0); MEAN CORPUSCULAR VOLUME 91.8 fL (80.0-94.0); MEAN PLATELET VOLUME 10.7 fL (7.4-11.4); MONOCYTES % (AUTO) 1.9 %; NEUTROPHILS % (AUTO) 87.9 %; PLT - PLATELET COUNT 137 10^3/uL (130-450); RED BLOOD COUNT 3.68 10^6/uL (4.70-6.10); RED CELL DISTRIBUTION WIDTH 13.7 % (12.0-15.0)
[2022-09-11 05:05] LABS: CALCIUM 8.2 mg/dL (8.5-10.3); CREATININE 3.2 mg/dL (0.6-1.2); POTASSIUM 4.4 mmol/L (3.5-5.0)
[2022-09-11 05:16] LABS: WHITE BLOOD COUNT 1.6 x10^3/uL (4.8-10.8)
[2022-09-11 05:17] LABS: ABNORMAL LYMPHS % (MANUAL) 0 %
[2022-09-11 05:22] LABS: BAND NEUTROPHILS % (MANUAL) 3 %; LYMPHOCYTES # (MANUAL) 0.2 10^3/uL (1.5-3.5); LYMPHOCYTES % (MANUAL) 11 %; NEUTROPHILS # (MANUAL) 1.4 10^3/uL (1.5-6.6)
[2022-09-11 05:23] LABS: DIFFERENTIAL COMMENT MANUAL DIFFERENTIAL; PLATELET ESTIMATE, MANUAL NORMAL (130-450,000) (NORMAL); PLATELET MORPHOLOGY NORMAL APPEARANCE (NORMAL); RBC MORPHOLOGY (MULTIPLE) NORMAL APP (NORMAL); WBC MORPHOLOGY (MULTIPLE) NORMAL APPEARANCE (NORMAL)
[2022-09-11] MEDS: methylPREDNISolone SUCCINATE 40 MG/ML VIAL IVP SCH ×3 (06:22→21:22)
[2022-09-11] MEDS: FLECAINIDE 50 MG TABLET PO SCH ×2 (08:42→21:18)
[2022-09-11] MEDS: carvediloL 12.5 MG TABLET PO SCH ×2 (08:42→21:18)
[2022-09-11] MEDS ORDERED: ENOXAPARIN 30 MG/0.3 ML SYRINGE SUBQ SCH (09:00)
[2022-09-11] MEDS ORDERED: FLECAINIDE 50 MG TABLET PO SCH (10:00)
--- NOTE | 2022-09-11 11:02 | PHARMACY PROGRESS NOTE ---
- Best Possible Medication History Admit Date and Time: 09/10/22 1706 Processed by: Pharmacy Medication History completed: Yes Patient Interview: Completed Secondary Source(s): Written medication list, Other family member Patient called his daughter and put her on speakerphone during patient interview. Per the patient and his daughter, amlodipine 5 mg daily, furosemide 40 mg daily, and KCl 10 mEq every other day have been on hold. These were left off the medication list since the patient has not been taking them. The Trulicity has been another issue for the patient. Apparently they are still working on getting the medication [facility] so the patient has not been able to fill the Trulicity for many weeks. Per his daughter, they were able to obtain a trial of Ozempic through another source in the meantime, so the patient has had a single dose of Ozempic 0.25 mg SQ last . As the person ultimately responsible for medication therapy, providers are able to order a medication from an existing home medication list in [facility] via the "Reconcile Routine" prior to Confirmation of that medication by call center support consultant. Such practice is discouraged except when the physician, in their clinical judgment, deems that a medical need exists for a medication without regard to previous use.
[2022-09-11] MEDS: guaiFENesin 600 MG TABLET PO SCH ×2 (11:07→21:18)
[2022-09-11] MEDS ORDERED: LIDOCAINE-MPF 1% 5 ML VIAL ONE (11:35)
[2022-09-11 12:29] LABS: ESTIMATED AVERAGE GLUCOSE 206 mg/dL (70-100); HEMOGLOBIN A1c% 8.8 % (4.27-6.07)
[2022-09-11] MEDS ORDERED: LIDOCAINE-MPF 1% 5 ML VIAL SUBQ ONE (12:38)
[2022-09-11 12:48] LABS: BF CLARITY CLEAR; BF SOURCE PLEURAL; CC,BF RBC < 3000 /mm^3; CC,BF WBC 331 /mm^3
[2022-09-11 12:49] LABS: BF COLOR YELLOW
[2022-09-11 13:18] LABS: EOSINOPHILS %,BODY FLUID 1 %; LYMPHOCYTES %,BODY FLUID 84 %; MONOCYTES %,BODY FLUID 7 %; NEUTROPHILS %, BF 8 %
--- NOTE | 2022-09-11 13:46 | XRAY Report ---
PROCEDURE: Post Thoracentesis 1V CXR INDICATIONS: S/P Thoracentesis TECHNIQUE: One view of the chest was acquired. COMPARISON: None. FINDINGS: Surgical changes and devices: Stable left chest wall cardiac pacer. Lungs and pleura: No pleural effusions or pneumothorax. Lungs are clear. Mediastinum: Mediastinal contours appear normal. Heart size is normal. Bones and chest wall: No suspicious bony lesions. Overlying soft tissues appear unremarkable. IMPRESSION: No pneumothorax following thoracentesis. Reviewed by: Julia Lujan MD, PhD on 09/11/2022 1:45 PM PST Approved by: Julia Lujan MD, PhD on 09/11/2022 1:45 PM PST Station ID: [id number]
--- NOTE | 2022-09-11 13:59 | Ultrasound Report ---
PROCEDURE: Thoracentesis Puncture INDICATIONS: need diagnosis for recurrent pleural effusion. TECHNIQUE: The indications, alternatives, benefits, risks, and complications of the procedure were explained to the patient. Written informed consent was obtained and placed in the chart. The chest was examined sonographically, and an appropriate site was chosen for thoracentesis. The skin was prepared and raulito ped in the usual sterile fashion, and 1% lidocaine was infiltrated from the skin down through the ple ural surface. A 19-gauge catheter-covered needle was then introduced into the pleural space, the cat heter was advanced and the needle was withdrawn, and thereafter pleural fluid was aspirated. The cat heter was then removed and a dressing was applied. COMPARISON: None. FINDINGS: Access site: Left posterior and inferior hemithorax. Needle: One-Step centesis catheter with introducer needle. Fluid volume and description: 1.2 L of translucent serous yellow fluid. Fluid sent for diagnostic testin mL syringe. Medications: 1% lidocaine for local anaesthesia. Complications: None; post-procedural chest radiograph is pending to assess for pneumothorax. IMPRESSION: Technically successful ultrasound-guided thoracentesis. Reviewed by: Cachorro Hernadez MD on 09/11/2022 1:58 PM PST Approved by: Cachorro Hernadez MD on 09/11/2022 1:58 PM PST Station ID: [id number]
[2022-09-11] MEDS: SODIUM CHLORIDE FLUSH 0.9% 10 ML SYRINGE IVP PRN (14:47)
--- NOTE | 2022-09-11 17:54 | PROVIDER PROGRESS NOTE ---
Assessment/Plan - Problem List (1) Acute respiratory failure with hypoxia Assessment/Plan: Cause appears to be multifactorial: from CHF, pleural effusion and from COPD exacerbation. Plan: cont suppl O2, target sats 88% or above. Treat the underlying problems. Will admit to Inpt status from Observation for longer treatment 2. COPD with acute exacerbation Possibly due to viral infection: he has (+) rhinovirus. He has quite a bit of whistling nasal congestion and a congested cough and cobblestoning. He may have elements of cor pulmonale which would be understandable with such severe centrilobular emphysema in a longtime smoker. He has a chronic left pleural effusion that has been present since at least February of this year. Plan: Nebulizers with DuoNeb on a fixed schedule, albuterol as needed Inhaled budesonide Solumedrol 40 mg IV tid Has already received 1 dose of IV Lasix in the ER, will not repeat, considering his creatinine No antibiotics for now. He has received several abx treatments since 02/2022 He will need an oximetry walk test on the day of discharge to see if he needs new home oxygen. He said he would accept using home O2. Obtain pulmonary function studies with DLCO to quantify the severity of his illness. That should be done in the outpatient setting. 3. Recurrent pleural effusion. This is a patient who is a smoker, and was exposed to agent orange. CT does not show a lung cancer and has been stable since October of this year. He has had a recent colonoscopy and has EGDs. The pleural effusion could be from congestive heart failure. He does not have cirrhosis. I suspect his unilateral arm swelling of L arm is probably from poor lymphatic drainage of L arm, somehow related to this L sided pleural effusion. But his admission CT chest did not describe an obstructive mass or node there. Plan: Continue to hold Eliquis. Resume when safe, probably tomorrow. Thoracentesis by ultrasound guidance for diagnostic tap today>> post-tap the CXR revealed no residual effusion. Fluid sent off for aerobic and anaerobic cx, and for cytology. Will also add fluid for glu and protein and LDH to assess if it is an exudate or transudate. Will consider a chest CT or MRI now, after the pleural fluid was removed. He is not ready for DCh. Will admit to Inpt status from Observation for work-up and proper management 4. Acute on chronic kidney insufficiency stage III. This gentleman's baseline creatinine appears to be about 1.2. It was over 2 and that is why his Lasix was discontinued. Now he is over 3 even before he received Lasix. His weight is significantly increased from last months of this month. Considering his leg edema this may be water weight. Renal ultrasound was done to make sure there is no hydronephrosis or obstruction>> no hydronephrosis or obstruction but he has alarge post-void residual of 450 cc in bladder. Plan: Will admit to Inpt status from Observation for longer treatment Avoid nephrotoxins He needs to see his [employer] soon after DCh and possibly also Urology. 5. Diastolic heart failure, acute. On physical exam he has pedal edema. His lung exam is more convincing for rhonchi and viral infection than it is for crackles with pulmonary edema. He had no JVP elevation. BNP is not severely elevated at 353. But weight is reportedly significantly increased Plan: He got Lasix which is on hold due to ANASTACIO for now. Obtain an Echocardiogram>>> this was done and showed normal LVEF, therefore possibly diastolic dysfunction is from RV overload that is compressing the LV 6. Cor pulmonale This was seen on Echo done today: The RV is dilated and is compressing the LV. Cor Pulmonale is likely from his COPD. Plan: he will be very fluid and diuretic sensitive. 7. DM He took Glipizide at home, and may have been about to change to Trulicity, per the daughter telling his RN. Plan: Will resume Glipizide. Will order DM diet Will order Hypoglycemia protocol, sliding scale insulin coverage and fingerstick checks before meals and at bedtime 8. Leukopenia He had a white count of 5 on admission, today this has dropped to 1.7. His hemoglobin is abn but stable will and platelets are stable, therefore not lab draw site problem. He does bnot have a fulminant infection to explain this. I suspect it is a lab error. Plan: Will recheck and follow Daily 9. History of iron deficiency anemia. This has been associated with his history of duodenitis, esophagitis. He was just seen August 30 to get a repeat EGD with Dr. Franklin. EGD done September 07. No report in EMR yet. Hemoglobin today is acceptable at 11.1. He is off anticoagulants and anti-plt agents due to the GI bleed Hx. Plan: Continue proton pump inhibitor Follow-up with oncology and Dr. Franklin when necessary Will see if we can get a report to review. 10. History of atrial fibrillation. This is why he was on anticoagulation. His EKG showed normal sinus rhythm. He takes Tambocor 50 mg every 12 hours. He takes carvedilol 12.5 mg twice daily. Plan: Resume these meds Hold Eliquis until safe to resume, need records to tell us when. - Current Meds Current Meds: Current Medications Generic Name Dose Route Start Last Admin Trade Name Freq PRN Reason Stop Dose Admin Albuterol 2.5 mg 09/10/22 17:12 09/11/22 04:20 Albuterol Neb 2.5 Mg/3 Ml INH 2.5 mg Q2HR PRN Administration Wheezing Albuterol/Ipratropium 3 ml 09/11/22 11:00 09/11/22 15:15 Ipratropium/Albuterol 3 Ml Neb INH 3 ml RTQID LEONELA Administration Budesonide 0.5 mg 09/10/22 19:00 09/11/22 07:42 Budesonide 0.5 Mg/2 Ml Neb INH 0.5 mg RTBID LEONELA Administration Carvedilol 12.5 mg 09/10/22 21:00 09/11/22 08:42 Carvedilol 12.5 Mg Tablet PO 12.5 mg BID LEONELA Administration Flecainide Acetate 50 mg 09/10/22 21:00 09/11/22 08:42 Flecainide 50 Mg Tablet PO 50 mg BID LEONELA Administration Guaifenesin 600 mg 09/11/22 10:00 09/11/22 11:07 Guaifenesin 600 Mg Tablet PO 600 mg BID LEONELA Administration Methylprednisolone 40 mg 09/10/22 18:00 09/11/22 14:46 Methylprednisolone Succinate 40 Mg/Ml Vial IVP 40 mg TID LEONELA Administration Sodium Chloride 10 ml 09/10/22 17:09 09/11/22 14:47 Sodium Chloride Flush 0.9% 10 Ml Syringe IVP 10 ml PRN PRN Administration NEEDED PER PROVIDER ORDERS Sodium Chloride 10 ml 09/11/22 01:00 09/11/22 16:58 Sodium Chloride Flush 0.9% 10 Ml Syringe IVP 10 ml 0100,0900,1700 [facility] Administration - Lab Result Fish Bone Diagrams: 09/12/22 04:35 09/12/22 04:35 - Additional Planning My Orders: My Active Orders 09/11/22 09:22 Acapella (Flutter Valve Device [RC] .tid as brianna 09/11/22 10:00 guaiFENesin [Mucinex] 600 mg PO BID 09/11/22 10:46 RN to Reorder Previous Diet [RC] .ONCE 09/11/22 10:48 Home CPAP/BiPAP [RC] .ONCE 09/11/22 11:00 Ipratropium/Albuterol [Duoneb] 3 ml INH RTQID 09/11/22 12:20 CUL,BODY FLUID(AEROBIC) [RM] Stat 09/11/22 Dinner DIET [Carb-controlled Diet] [DIET] 09/11/22 21:00 Montelukast [Singulair] 10 mg PO QPM 09/12/22 07:30 glipiZIDE [Glucotrol] 5 mg PO 0730 09/12/22 09:00 Heparin [Heparin Sodium (Porcine)] 5,000 unit SUBQ BID Sertraline [Zoloft] 50 mg PO DAILY Tamsulosin [Flomax] 0.4 mg PO DAILY Subjective - Subjective Patient Reports: Feeling Better, Other (edema of L arm, says it started about a week ago.) Objective Vital Signs: Vital Signs - 24 hr 09/10/22 09/10/22 09/10/22 18:00 18:17 18:45 Temperature 36.5 C 36.2 C L Heart Rate 83 Heart Rate [ 84 Brachial] Respiratory 24 20 Rate Blood Pressure 172/84 H Blood Pressure 197/80 H [Right Brachial artery] O2 Saturation 97 97 If not protocol 2 2 2 : Oxygen Flow, liters/minute 09/10/22 09/10/22 09/10/22 20:16 20:57 23:47 Temperature 36.3 C L 36.4 C L Heart Rate Heart Rate [ 86 87 92 Brachial] Respiratory 16 18 Rate Blood Pressure Blood Pressure 159/63 H 167/80 H 152/86 H [Right Brachial artery] O2 Saturation 96 96 If not protocol 2 2 : Oxygen Flow, liters/minute 09/11/22 09/11/22 09/11/22 04:20 04:36 05:00 Temperature 36.7 C Heart Rate 94 Heart Rate [ 92 Brachial] Respiratory 28 H 20 Rate Blood Pressure Blood Pressure 113/89 H [Right Brachial artery] O2 Saturation 98 If not protocol 2 2 2 : Oxygen Flow, liters/minute 09/11/22 09/11/22 09/11/22 07:45 08:14 08:40 Temperature 36.3 C L Heart Rate 80 Heart Rate [ 85 85 Brachial] Respiratory 20 20 Rate Blood Pressure Blood Pressure 118/67 121/69 [Right Brachial artery] O2 Saturation 100 If not protocol 2 2 : Oxygen Flow, liters/minute 09/11/22 09/11/22 09/11/22 10:54 13:36 15:15 Temperature 36.3 C L Heart Rate 95 90 Heart Rate [ 76 Brachial] Respiratory 24 18 24 Rate Blood Pressure Blood Pressure 103/62 [Right Brachial artery] O2 Saturation 98 If not protocol 2 : Oxygen Flow, liters/minute 09/11/22 15:46 Temperature Heart Rate Heart Rate [ 74 Brachial] Respiratory 16 Rate Blood Pressure Blood Pressure 139/66 H [Right Brachial artery] O2 Saturation 3 L If not protocol 99 : Oxygen Flow, liters/minute Oxygen O2 Source Nasal cannula Oxygen Flow Rate 2 I&O (Last 24 Hrs): Intake and Output Totals x24h 09/09/22 09/10/22 09/11/22 23:59 23:59 23:59 Intake Total 150 1313.885 Output Total 950 950 Balance -800 363.885 General: Alert, Oriented x3, Other (Disheveled) HEENT: Mucous membr. moist/pink, Other (poor dentition) Neck: Supple, No JVD Neuro: Alert, Non Focal Cardiovascular: Regular rate, Other (distant heart [id number]) Respiratory: Other (Diminished with poor air mvm in all lung lozano) Abdomen: Normal bowel sounds, Soft Extremities: No clubbing, No edema (of legs), Other (L arm has 1+ edema to L shoulder) - Results Results: Laboratory Results WBC 1.6 x10^3/uL (4.8-10.8) L* 09/11/22 04:38 RBC 3.68 10^6/uL (4.70-6.10) L 09/11/22 04:38 Hgb 11.3 g/dL (14.0-18.0) L 09/11/22 04:38 Hct 33.8 % (42.0-52.0) L 09/11/22 04:38 MCV 91.8 fL (80.0-94.0) 09/11/22 04:38 MCH 30.7 pg (27.0-31.0) 09/11/22 04:38 MCHC 33.4 g/dL (32.0-36.0) 09/11/22 04:38 RDW 13.7 % (12.0-15.0) 09/11/22 04:38 Plt Count 137 10^3/uL (130-450) 09/11/22 04:38 MPV 10.7 fL (7.4-11.4) 09/11/22 04:38 Neut # (Auto) Not Reportable 09/11/22 04:38 Lymph # (Auto) Not Reportable 09/11/22 04:38 Granite # (Auto) Not Reportable 09/11/22 04:38 Eos # (Auto) Not Reportable 09/11/22 04:38 Baso # (Auto) Not Reportable 09/11/22 04:38 Absolute Nucleated RBC Not Reportable 09/11/22 04:38 Total Counted 100 09/11/22 04:38 Band Neuts % (Manual) 3 % (0-10) 09/11/22 04:38 Abnorm Lymph % (Manual) 0 % 09/11/22 04:38 Nucleated RBC % Not Reportable 09/11/22 04:38 Neutrophils # (Manual) 1.4 10^3/uL (1.5-6.6) L 09/11/22 04:38 Lymphocytes # (Manual) 0.2 10^3/uL (1.5-3.5) L 09/11/22 04:38 Monocytes # (Manual) 0.0 10^3/uL (0.0-1.0) 09/11/22 04:38 Eosinophils # (Manual) 0.0 10^3/uL (0-0.7) 09/11/22 04:38 Basophils # (Manual) 0.0 10^3/uL (0-0.1) 09/11/22 04:38 Differential Comment MANUAL DIFFERENTIAL 09/11/22 04:38 WBC Morphology NORMAL APPEARANCE (NORMAL) 09/11/22 04:38 Platelet Estimate NORMAL (130-450,000) (NORMAL) 09/11/22 04:38 Platelet Morphology NORMAL APPEARANCE (NORMAL) 09/11/22 04:38 RBC Morph Micro Appear NORMAL ALO (NORMAL) 09/11/22 04:38 PT 13.8 secs (9.9-12.6) H 09/10/22 20:20 INR 1.3 (0.8-1.2) H 09/10/22 20:20 Sodium 133 mmol/L (135-145) L 09/11/22 04:38 Potassium 4.4 mmol/L (3.5-5.0) 09/11/22 04:38 Chloride 101 mmol/L (101-111) 09/11/22 04:38 Carbon Dioxide 23 mmol/L (21-32) 09/11/22 04:38 Anion Gap 9.0 (6-13) 09/11/22 04:38 BUN 38 mg/dL (6-20) H 09/11/22 04:38 Creatinine 3.2 mg/dL (0.6-1.2) H 09/11/22 04:38 Estimated GFR (MDRD) 19 (>89) L 09/11/22 04:38 Glucose 320 mg/dL (70-100) H 09/11/22 04:38 Estimat Average Glucose 206 mg/dL (70-100) H 09/11/22 04:38 Hemoglobin A1c % 8.8 % (4.27-6.07) H 09/11/22 04:38 Calcium 8.2 mg/dL (8.5-10.3) L 09/11/22 04:38 Iron 57 ug/dL (45-182) 09/10/22 10:12 TIBC 256 ug/dL (250-450) 09/10/22 10:12 % Saturation 22 % (20-50) 09/10/22 10:12 Transferrin 183 mg/dL (180-329) 09/10/22 10:12 Ferritin 96.8 ng/mL (23.9-336.2) 09/10/22 10:12 Total Bilirubin 0.6 mg/dL (0.2-1.0) 09/10/22 10:17 AST 14 IU/L (10-42) 09/10/22 10:17 ALT 16 IU/L (10-60) 09/10/22 10:17 Alkaline Phosphatase 112 IU/L (42-121) 09/10/22 10:17 B-Natriuretic Peptide 590 pg/mL (5-100) H 09/11/22 04:38 Total Protein 5.5 g/dL (6.7-8.2) L 09/10/22 10:17 Albumin 2.7 g/dL (3.2-5.5) L 09/10/22 10:17 Globulin 2.8 g/dL (2.1-4.2) 09/10/22 10:17 Albumin/Globulin Ratio 1.0 (1.0-2.2) 09/10/22 10:17 Lipase 22 U/L (22-51) 09/10/22 10:17 Fluid Source PLEURAL 09/11/22 12:20 Fluid Color YELLOW 09/11/22 12:20 Fluid Clarity CLEAR 09/11/22 12:20 Fluid WBC 331 /mm^3 09/11/22 12:20 Fluid RBC < 3000 /mm^3 09/11/22 12:20 Fluid Neutrophils % 8 % 09/11/22 12:20 Fluid Lymphocytes % 84 % 09/11/22 12:20 Fluid Monocytes % 7 % 09/11/22 12:20 Fluid Eosinophils % 1 % 09/11/22 12:20 Fld Mesothelial Cell % Not Reportable 09/11/22 12:20 Nasal Adenovirus (PCR) NOT DETECTED 09/10/22 10:19 Nasal B. parapertussis DNA (PCR) NOT DETECTED 09/10/22 10:19 Nasal Coronavir 229E PCR NOT DETECTED 09/10/22 10:19 Nasal Coronavir HKU1 PCR NOT DETECTED 09/10/22 10:19 Nasal Coronavir NL63 PCR NOT DETECTED 09/10/22 10:19 Nasal Coronavir OC43 PCR NOT DETECTED 09/10/22 10:19 Nasal Enterovir/Rhinovir PCR DETECTED A 09/10/22 10:19 Nasal Influenza B PCR NOT DETECTED 09/10/22 10:19 Nasal Influenza A PCR NOT DETECTED 09/10/22 10:19 Nasal Parainfluen 1 PCR NOT DETECTED 09/10/22 10:19 Nasal Parainfluen 2 PCR NOT DETECTED 09/10/22 10:19 Nasal Parainfluen 3 PCR NOT DETECTED 09/10/22 10:19 Nasal Parainfluen 4 PCR NOT DETECTED 09/10/22 10:19 Nasal RSV (PCR) NOT DETECTED 09/10/22 10:19 Nasal B.pertussis DNA PCR NOT DETECTED 09/10/22 10:19 Nasal C.pneumoniae (PCR) NOT DETECTED 09/10/22 10:19 True Human Metapneumo PCR NOT DETECTED 09/10/22 10:19 Nasal M.pneumoniae (PCR) NOT DETECTED 09/10/22 10:19 Nasal SARS-CoV-2 (PCR) NOT DETECTED 09/10/22 10:19 - Procedures Procedures: Procedures EXCISION OF ASCENDING COLON, ENDO (02/13/21) EXCISION OF RECTUM, ENDO (02/13/21) EXCISION OF TRANSVERSE COLON, ENDO (02/13/21)
[2022-09-11] MEDS: MONTELUKAST 10 MG TABLET PO SCH (21:18)
[2022-09-12 04:51] LABS: HCT - HEMATOCRIT 30.5 % (42.0-52.0); HGB - HEMOGLOBIN 10.2 g/dL (14.0-18.0); LYMPHOCYTES # (AUTO) 0.3 10^3/uL (1.5-3.5); LYMPHOCYTES % (AUTO) 4.7 %; MEAN CORPUSCULAR HEMOGLOBIN 31.4 pg (27.0-31.0); MEAN CORPUSCULAR HGB CONC 33.4 g/dL (32.0-36.0); MEAN CORPUSCULAR VOLUME 93.8 fL (80.0-94.0); MEAN PLATELET VOLUME 10.4 fL (7.4-11.4); MONOCYTES # (AUTO) 0.3 10^3/uL (0.0-1.0); MONOCYTES % (AUTO) 4.2 %; NEUTROPHILS # (AUTO) 5.4 10^3/uL (1.5-6.6); NEUTROPHILS % (AUTO) 90.8 %; PLT - PLATELET COUNT 138 10^3/uL (130-450); RED BLOOD COUNT 3.25 10^6/uL (4.70-6.10); RED CELL DISTRIBUTION WIDTH 14.2 % (12.0-15.0)
[2022-09-12 04:58] LABS: CALCIUM 7.8 mg/dL (8.5-10.3); CREATININE 3.4 mg/dL (0.6-1.2); POTASSIUM 5.1 mmol/L (3.5-5.0)
[2022-09-12] MEDS: BUDESONIDE 0.5 MG/2 ML NEB INH SCH ×2 (05:53→18:00)
[2022-09-12] MEDS: IPRATROPIUM/ALBUTEROL 3 ML NEB INH SCH ×4 (05:53→18:00)
[2022-09-12] MEDS ORDERED: WATER FOR INJECTION,STERILE 10 ML MC ONE (06:48)
[2022-09-12] MEDS: methylPREDNISolone SUCCINATE 40 MG/ML VIAL IVP SCH ×3 (06:56→22:01)
[2022-09-12] MEDS: SODIUM CHLORIDE FLUSH 0.9% 10 ML SYRINGE IVP SCH ×3 (06:56→17:19)
[2022-09-12] MEDS ORDERED: glipiZIDE 5 MG TABLET PO SCH (07:30)
[2022-09-12] MEDS: carvediloL 12.5 MG TABLET PO SCH (08:46)
[2022-09-12] MEDS: TAMSULOSIN 0.4 MG CAPSULE PO SCH (08:47)
[2022-09-12] MEDS: guaiFENesin 600 MG TABLET PO SCH ×2 (08:47→21:59)
[2022-09-12] MEDS: SERTRALINE 50 MG TABLET PO SCH (08:47)
[2022-09-12] MEDS: FLECAINIDE 50 MG TABLET PO SCH ×2 (08:47→21:59)
[2022-09-12] MEDS: polyethylene glycoL 3350 17 GM PACKET PO SCH (08:54)
[2022-09-12] MEDS ORDERED: HEPARIN 5,000 UNIT/ML VIAL SUBQ SCH (09:00)
--- NOTE | 2022-09-12 12:40 | PROVIDER PROGRESS NOTE ---
Assessment/Plan - Problem List (1) Acute respiratory failure with hypoxia Assessment/Plan: Cause appears to be multifactorial: from COPD exacerbation and exacerbation of diastolic heart failure and from pleural effusion (but that was tapped and drained yesterday) Plan: cont suppl O2, target sats 88% or above. Treat the underlying problems. I repeated his need to stop smoking. He will need an oximetry walk test on the day of discharge to see if he needs new home oxygen. He said he would accept using home O2. Daughter requested the smallest O2 container as possible, so he can lift it. I spoke to the daughter, Kaleigh, by phone today, while I was in his room and updated her on all of his problems 2. COPD with acute exacerbation Probably due to viral infection: he is rhinovirus (+). He is very wheezy today. Plan: Continue Nebulized DuoNeb treatment on a fixed schedule, and will add Duoneb as needed q4h. Inhaled budesonide Solumedrol wasa started at 40 mg IV tid. I will increase this to 80 iv tid for 1-2 days , then taper down. He received 1 dose of IV Lasix in the ER, will not repeat, considering his creatinine No antibiotics for now, unless the pleural fluid has a (+) cukture result. He has received several abx treatments since 02/2022 We both re-iterated to him: no smoking when he is on Home O2. Continue Mucinex for expectoration 3. Recurrent pleural effusion. This is a patient who is a smoker, and was exposed to agent orange. CT does not show a lung cancer and has been stable since October of this year. He has had a recent colonoscopy and has EGDs. The pleural effusion could be from congestive heart failure. He does not have cirrhosis. I suspect his unilateral arm swelling of L arm is probably from poor lymphatic drainage of L arm, somehow related to this L sided pleural effusion. But his adm ission CT chest did not describe an obstructive mass or node there. Plan: Continue to hold Eliquis. Resume when safe from a GI standpoint. Thoracentesis by ultrasound guidance for diagnostic tap was done yesterday 09/11>> post-tap the CXR revealed no residual effusion. Fluid sent off for aerobic and anaerobic cx, and for cytology. Also checking fluid for glu and protein and LDH to assess if it is an exudate or transudate. We are awaiting these results to tailor treatment. Will consider a chest CT or MRI after the pleural fluid was removed. 4. Acute on chronic kidney insufficiency stage III. This gentleman's baseline creatinine appears to be about 1.2. It was over 2 and that is why his Lasix was discontinued. Now he is over 3 even before he received Lasix. His weight is significantly increased from last months of this month. Renal ultrasound was done to make sure there is no hydronephrosis or obstruction>> no hydronephrosis or obstruction but he has a large post-void residual of 450 cc in bladder. Plan: Avoid nephrotoxins Follow BMP daily He needs to see his Application Systems Architect soon after DCh and possibly also Urology. 5. Diastolic heart failure, acute. On physical exam he had pedal edema at admission, which has resolved. His lung exam has rhonchi and wheezing, c/w viral infection. He had no JVP elevation. BNP is not severely elevated at 353. But weight was reportedly significantly increased Plan: An Echocardiogram was done yesterday 09/11 and showed normal LVEF, therefore this is diastolic dysfunction, from RV overload that is compressing the LV 6. Cor pulmonale This was seen on Echo: The RV is dilated and is compressing the LV. This Cor Pulmonale is likely from his significant COPD. Plan: He will be very fluid and diuretic sensitive. 7. DM He took Glipizide at home, and may have been about to change to Trulicity, per the daughter telling his RN. His A1c now is 8.8, indicating fair but not optimal glu control. Plan: We resumed Glipizide. We ordered a DM diet We ordered Hypoglycemia protocol, sliding scale insulin coverage and fingerstick checks before meals and at bedtime. I expect that his glucose levels will be elevated while he is on Solumedrol 8. Tobacco use He used to smoke a lot but reports that in the 2 days before this admission he was down to 3 cigarettes/day. He also admitted that since admission, he has had no urge for cigarette Plan: Will not order a nicotine patch if he has no urge. The daughter and I both reiterated the importance of stopping smoking given his COPD and PVD history. 9. History of iron deficiency anemia. This has been associated with his history of duodenitis, esophagitis. He was just seen August 30 to get a repeat EGD with Dr. Franklin. EGD done September 07. No report in EMR yet. Hemoglobin today is acceptable at 11.1. He is off anticoagulants and anti-plt agents due to the GI bleed Hx. Plan: Continue proton pump inhibitor Follow-up with oncology and Dr. Franklin when necessary Will see if we can get a report to review. 10. History of atrial fibrillation. The GI bleed is why he was on anticoagulation. He takes Tambocor 50 mg every 12 hours and Carvedilol 12.5 mg twice daily. Plan: We resumed these meds Since carvedilol is not a beta-1 selective beta-remington, it would be much better for this COPD-er to be on Metoprolol, which is purely B-1 remington. We will make the change to Toprol and stop Carvedilol, and Dch with Metoprolol. Holding Eliquis until safe to resume, need records to tell us when. The patient reported he is scheduled to get a Watchman device implanted on October 19, 2022 11. Hx PVD His daughter Kaleigh, in our conversation by phone in his room today, happened to mention that this pt has vascular disease, had right-sided carotid endarterectomy and has a vascular specialist who follows him. The daughter did not know if there were any blockages of the left arm that may explain his unilateral left arm swelling Plan: Will continue with any antiplatelet agents if he can take those. Will continue with statin if he is on that and he needs to be at target LDL less than 70 The daughter and I both reiterated to the pt, during this phone call, the need for him to stop smoking. I recommended to the patient, also told the daughter, that he should try sleeping on his right side because he says he always sleeps on his left, which could be causing the left arm swelling. 12. Leukopenia Resolved with no additional intervention, therefore likely a Lab error. - Current Meds Current Meds: Current Medications Generic Name Dose Route Start Last Admin Trade Name Freq PRN Reason Stop Dose Admin Albuterol 2.5 mg 09/10/22 17:12 09/11/22 04:20 Albuterol Neb 2.5 Mg/3 Ml INH 2.5 mg Q2HR PRN Administration Wheezing Albuterol/Ipratropium 3 ml 09/11/22 11:00 09/12/22 11:01 Ipratropium/Albuterol 3 Ml Neb INH 3 ml RTQID LEONELA Administration Budesonide 0.5 mg 09/10/22 19:00 09/12/22 05:53 Budesonide 0.5 Mg/2 Ml Neb INH 0.5 mg RTBID LEONELA Administration Carvedilol 12.5 mg 09/10/22 21:00 09/12/22 08:46 Carvedilol 12.5 Mg Tablet PO 12.5 mg BID LEONELA Administration Flecainide Acetate 50 mg 09/10/22 21:00 09/12/22 08:47 Flecainide 50 Mg Tablet PO 50 mg BID LEONELA Administration Glipizide 5 mg 09/12/22 07:30 09/12/22 06:56 Glipizide 5 Mg Tablet PO 5 mg 0730 LEONELA Administration Guaifenesin 600 mg 09/11/22 10:00 09/12/22 08:47 Guaifenesin 600 Mg Tablet PO 600 mg BID LEONELA Administration Heparin Sodium (Porcine) 5,000 unit 09/12/22 09:00 09/12/22 09:03 Heparin 5,000 Unit/Ml Vial SUBQ 5,000 unit BID LEONELA Administration Methylprednisolone 40 mg 09/10/22 18:00 09/12/22 06:56 Methylprednisolone Succinate 40 Mg/Ml Vial IVP 40 mg TID LEONELA Administration Montelukast Sodium 10 mg 09/11/22 21:00 09/11/22 21:18 Montelukast 10 Mg Tablet PO 10 mg QPM LEONELA Administration Polyethylene Glycol 17 gm 09/12/22 09:00 09/12/22 08:54 Polyethylene Glycol 3350 17 Gm Packet PO 17 gm DAILY LEONELA Administration Sertraline HCl 50 mg 09/12/22 09:00 09/12/22 08:47 Sertraline 50 Mg Tablet PO Not Given DAILY LEONELA Sodium Chloride 10 ml 09/10/22 17:09 09/11/22 14:47 Sodium Chloride Flush 0.9% 10 Ml Syringe IVP 10 ml PRN PRN Administration NEEDED PER PROVIDER ORDERS Sodium Chloride 10 ml 09/11/22 01:00 09/12/22 09:10 Sodium Chloride Flush 0.9% 10 Ml Syringe IVP 10 ml 0100,0900,1700 LEONELA Administration Tamsulosin HCl 0.4 mg 09/12/22 09:00 09/12/22 08:47 Tamsulosin 0.4 Mg Capsule PO 0.4 mg DAILY LEONELA Administration - Lab Result Fish Bone Diagrams: 09/12/22 04:35 09/12/22 04:35 - Additional Planning My Orders: My Active Orders 09/11/22 12:20 CUL,BODY FLUID(AEROBIC) [RM] Stat GLUCOSE BODY FLUID [REFLAB] Stat LD BODY FLUID [REFLAB] Stat PROTEIN BODY FLUID [REFLAB] Urgent 09/11/22 Dinner DIET [Carb-controlled Diet] [DIET] 09/11/22 21:00 Montelukast [Singulair] 10 mg PO QPM 09/12/22 07:30 glipiZIDE [Glucotrol] 5 mg PO 0730 09/12/22 09:00 Heparin [Heparin Sodium (Porcine)] 5,000 unit SUBQ BID Sertraline [Zoloft] 50 mg PO DAILY Tamsulosin [Flomax] 0.4 mg PO DAILY polyethylene glycoL 3350 [Miralax] 17 gm PO DAILY Subjective - Subjective Patient Reports: Shortness of Breath (Feels more SOB since awoken and needed the neb treatments) Nursing Reports: Other (RT reported he is more SOB today.) Objective Vital Signs: Vital Signs - 24 hr 09/11/22 09/11/22 09/11/22 13:36 15:15 15:46 Temperature 36.3 C L Heart Rate 90 Heart Rate [ 76 74 Brachial] Respiratory 18 24 16 Rate Blood Pressure 103/62 139/66 H [Right Brachial artery] O2 Saturation 98 3 L If not protocol 2 99 : Oxygen Flow, liters/minute 09/11/22 09/12/22 09/12/22 18:30 00:05 05:54 Temperature 36.6 C Heart Rate 76 64 Heart Rate [ 69 Brachial] Respiratory 20 18 21 Rate Blood Pressure 106/50 L [Right Brachial artery] O2 Saturation 95 If not protocol 2 2 2 : Oxygen Flow, liters/minute 09/12/22 09/12/22 09/12/22 05:55 08:22 11:01 Temperature 36.5 C Heart Rate 70 Heart Rate [ 64 Brachial] Respiratory 16 24 Rate Blood Pressure 119/67 [Right Brachial artery] O2 Saturation 97 If not protocol 2 2 : Oxygen Flow, liters/minute Oxygen O2 Source Nasal cannula Oxygen Flow Rate 2 I&O (Last 24 Hrs): Intake and Output Totals x24h 09/10/22 09/11/22 09/12/22 23:59 23:59 23:59 Intake Total 150 2053.885 590 Output Total 950 1150 825 Balance -800 903.885 -235 General: Alert, Oriented x3, No acute distress (while wearing suppl O2) HEENT: Mucous membr. moist/pink, Other (wearing O2 per n.c.) Neck: Supple, No JVD Neuro: Alert, Non Focal Cardiovascular: Regular rate, No murmurs Respiratory: Wheezes (In all lung lozano posteriorly), Other (Poor air movement, prolonged expiratory phase) Abdomen: Normal bowel sounds Extremities: Other (Legs have no swelling. Left arm has 1+ edema to the left shoulder) - Results Results: Laboratory Results WBC 6.0 x10^3/uL (4.8-10.8) 09/12/22 04:35 RBC 3.25 10^6/uL (4.70-6.10) L 09/12/22 04:35 Hgb 10.2 g/dL (14.0-18.0) L 09/12/22 04:35 Hct 30.5 % (42.0-52.0) L 09/12/22 04:35 MCV 93.8 fL (80.0-94.0) 09/12/22 04:35 MCH 31.4 pg (27.0-31.0) H 09/12/22 04:35 MCHC 33.4 g/dL (32.0-36.0) 09/12/22 04:35 RDW 14.2 % (12.0-15.0) 09/12/22 04:35 Plt Count 138 10^3/uL (130-450) 09/12/22 04:35 MPV 10.4 fL (7.4-11.4) 09/12/22 04:35 Neut # (Auto) 5.4 10^3/uL (1.5-6.6) 09/12/22 04:35 Lymph # (Auto) 0.3 10^3/uL (1.5-3.5) L 09/12/22 04:35 Newton # (Auto) 0.3 10^3/uL (0.0-1.0) 09/12/22 04:35 Eos # (Auto) 0.0 10^3/uL (0.0-0.7) 09/12/22 04:35 Baso # (Auto) 0.0 10^3/uL (0.0-0.1) 09/12/22 04:35 Absolute Nucleated RBC 0.00 x10^3/uL 09/12/22 04:35 Total Counted 100 09/11/22 04:38 Band Neuts % (Manual) 3 % (0-10) 09/11/22 04:38 Abnorm Lymph % (Manual) 0 % 09/11/22 04:38 Nucleated RBC % 0.0 /100WBC 09/12/22 04:35 Neutrophils # (Manual) 1.4 10^3/uL (1.5-6.6) L 09/11/22 04:38 Lymphocytes # (Manual) 0.2 10^3/uL (1.5-3.5) L 09/11/22 04:38 Monocytes # (Manual) 0.0 10^3/uL (0.0-1.0) 09/11/22 04:38 Eosinophils # (Manual) 0.0 10^3/uL (0-0.7) 09/11/22 04:38 Basophils # (Manual) 0.0 10^3/uL (0-0.1) 09/11/22 04:38 Differential Comment MANUAL DIFFERENTIAL 09/11/22 04:38 WBC Morphology NORMAL APPEARANCE (NORMAL) 09/11/22 04:38 Platelet Estimate NORMAL (130-450,000) (NORMAL) 09/11/22 04:38 Platelet Morphology NORMAL APPEARANCE (NORMAL) 09/11/22 04:38 RBC Morph Micro Appear NORMAL ALO (NORMAL) 09/11/22 04:38 PT 13.8 secs (9.9-12.6) H 09/10/22 20:20 INR 1.3 (0.8-1.2) H 09/10/22 20:20 Sodium 129 mmol/L (135-145) L 09/12/22 04:35 Potassium 5.1 mmol/L (3.5-5.0) H 09/12/22 04:35 Chloride 97 mmol/L (101-111) L 09/12/22 04:35 Carbon Dioxide 25 mmol/L (21-32) 09/12/22 04:35 Anion Gap 7.0 (6-13) 09/12/22 04:35 BUN 55 mg/dL (6-20) H 09/12/22 04:35 Creatinine 3.4 mg/dL (0.6-1.2) H 09/12/22 04:35 Estimated GFR (MDRD) 18 (>89) L 09/12/22 04:35 Glucose 421 mg/dL (70-100) H 09/12/22 04:35 Estimat Average Glucose 206 mg/dL (70-100) H 09/11/22 04:38 Hemoglobin A1c % 8.8 % (4.27-6.07) H 09/11/22 04:38 Calcium 7.8 mg/dL (8.5-10.3) L 09/12/22 04:35 Iron 57 ug/dL (45-182) 09/10/22 10:12 TIBC 256 ug/dL (250-450) 09/10/22 10:12 % Saturation 22 % (20-50) 09/10/22 10:12 Transferrin 183 mg/dL (180-329) 09/10/22 10:12 Ferritin 96.8 ng/mL (23.9-336.2) 09/10/22 10:12 Total Bilirubin 0.6 mg/dL (0.2-1.0) 09/10/22 10:17 AST 14 IU/L (10-42) 09/10/22 10:17 ALT 16 IU/L (10-60) 09/10/22 10:17 Alkaline Phosphatase 112 IU/L (42-121) 09/10/22 10:17 B-Natriuretic Peptide 561 pg/mL (5-100) H 09/12/22 04:35 Total Protein 5.5 g/dL (6.7-8.2) L 09/10/22 10:17 Albumin 2.7 g/dL (3.2-5.5) L 09/10/22 10:17 Globulin 2.8 g/dL (2.1-4.2) 09/10/22 10:17 Albumin/Globulin Ratio 1.0 (1.0-2.2) 09/10/22 10:17 Lipase 22 U/L (22-51) 09/10/22 10:17 Fluid Source PLEURAL 09/11/22 12:20 Fluid Color YELLOW 09/11/22 12:20 Fluid Clarity CLEAR 09/11/22 12:20 Fluid WBC 331 /mm^3 09/11/22 12:20 Fluid RBC < 3000 /mm^3 09/11/22 12:20 Fluid Neutrophils % 8 % 09/11/22 12:20 Fluid Lymphocytes % 84 % 09/11/22 12:20 Fluid Monocytes % 7 % 09/11/22 12:20 Fluid Eosinophils % 1 % 09/11/22 12:20 Fld Mesothelial Cell % Not Reportable 09/11/22 12:20 Nasal Adenovirus (PCR) NOT DETECTED 09/10/22 10:19 Nasal B. parapertussis DNA (PCR) NOT DETECTED 09/10/22 10:19 Nasal Coronavir 229E PCR NOT DETECTED 09/10/22 10:19 Nasal Coronavir HKU1 PCR NOT DETECTED 09/10/22 10:19 Nasal Coronavir NL63 PCR NOT DETECTED 09/10/22 10:19 Nasal Coronavir OC43 PCR NOT DETECTED 09/10/22 10:19 Nasal Enterovir/Rhinovir PCR DETECTED A 09/10/22 10:19 Nasal Influenza B PCR NOT DETECTED 09/10/22 10:19 Nasal Influenza A PCR NOT DETECTED 09/10/22 10:19 Nasal Parainfluen 1 PCR NOT DETECTED 09/10/22 10:19 Nasal Parainfluen 2 PCR NOT DETECTED 09/10/22 10:19 Nasal Parainfluen 3 PCR NOT DETECTED 09/10/22 10:19 Nasal Parainfluen 4 PCR NOT DETECTED 09/10/22 10:19 Nasal RSV (PCR) NOT DETECTED 09/10/22 10:19 Nasal B.pertussis DNA PCR NOT DETECTED 09/10/22 10:19 Nasal C.pneumoniae (PCR) NOT DETECTED 09/10/22 10:19 Ture Human Metapneumo PCR NOT DETECTED 09/10/22 10:19 Nasal M.pneumoniae (PCR) NOT DETECTED 09/10/22 10:19 Nasal SARS-CoV-2 (PCR) NOT DETECTED 09/10/22 10:19 - Procedures Procedures: Procedures EXCISION OF ASCENDING COLON, ENDO (02/13/21) EXCISION OF DUODENUM, ENDO, DIAGN (09/07/22) EXCISION OF RECTUM, ENDO (02/13/21) EXCISION OF STOMACH, PYLORUS, ENDO, DIAGN (09/07/22) EXCISION OF TRANSVERSE COLON, ENDO (02/13/21)
[2022-09-12] MEDS ORDERED: IPRATROPIUM/ALBUTEROL 3 ML NEB INH PRN (12:47)
[2022-09-12 14:54] LABS: ABG HCO3 24.7 mmol/L (22.0-26.0); ABG PCO2 49 mmHg (34-45); ABG PH 7.32 (7.35-7.45); ABG PO2 73 mmHg (80-100)
[2022-09-12 14:55] LABS: ABG BASE EXCESS -1.8 mmol/L (-2.0-3.0); ABG OXYGEN SATURATION 94 % (94-98); ABG TCO2 26.2 MMOL/L (21.0-29.0)
[2022-09-12] MEDS: INSULIN LISPRO 300 UNIT/3 ML PEN SUBQ SCH ×2 (17:18→22:00)
[2022-09-12] MEDS: LORazepam 2 MG/ML VIAL IVP PRN (17:33)
[2022-09-12] MEDS: MORPHINE 2 MG/ML CARPUJECT IVP PRN (18:22)
--- NOTE | 2022-09-12 18:47 | XRAY Report ---
PROCEDURE: Chest 1 View X-Ray INDICATIONS: Severe resp distress w/ hypoxia TECHNIQUE: One view of the chest was acquired. COMPARISON: 09/10/2020 FINDINGS: Small left pleural effusion, decreased from 09/10/2022 but increased from 09/11/2022. COPD and emphys dev related lung changes with no acute airspace opacity. No pneumothorax. Left chest wall cardiac pac ing device and heart size are stable. IMPRESSION: Findings of COPD with emphysematous changes and small left pleural effusion, increased from 2 but decreased from 09/10/2022. Reviewed by: Cachorro Hernadez MD on 09/12/2022 6:46 PM PST Approved by: Cachorro Hernadez MD on 09/12/2022 6:46 PM PST Station ID: [id number]
[2022-09-12] MEDS ORDERED: ENOXAPARIN 80 MG/0.8 ML SYRINGE SUBQ SCH (19:30)
[2022-09-12] MEDS: ATORVASTATIN 40 MG TABLET PO SCH (21:58)
[2022-09-12] MEDS: CALCIUM CARBONATE CHEW 500 MG TABLET PO SCH (21:58)
[2022-09-12] MEDS: glipiZIDE 5 MG TABLET PO SCH (21:59)
[2022-09-12] MEDS: METOPROLOL SUCCINATE 25 MG TABLET PO SCH (22:00)
[2022-09-12] MEDS: MONTELUKAST 10 MG TABLET PO SCH (22:01)
--- NOTE | 2022-09-12 22:50 | Ultrasound Report ---
PROCEDURE: Duplex Ext Veins Left INDICATIONS: L arm swollen,Pt SOB so consider PE w/ L arm DVT TECHNIQUE: Real-time imaging, as well as color and pulse Doppler interrogation, was performed of the left upper extremity deep veins from the inferior neck to the antecubital fossa. COMPARISON: None. FINDINGS: The internal jugular vein, visualized portions of the subclavian vein, axillary, and brach ial veins are free of intraluminal thrombus. Where physically possible, the veins are normally compr essible. Color and pulse Doppler demonstrate normal intraluminal flow, with expected phasicity and p ulsatility. Additional scanning of the cephalic and basilic veins of the superficial system demonstr ate normal compressibility, without thrombus. Cephalic vein was not well seen. There is fluid noted a long the biceps tendon in the left shoulder. IMPRESSION: 1. No evidence of deep venous thrombosis in the left upper extremity. Reviewed by: Andrea Renee MD on 09/12/2022 10:49 PM PST Approved by: Andrea Renee MD on 09/12/2022 10:49 PM PST Station ID: [id number]
[2022-09-13] MEDS: SODIUM CHLORIDE FLUSH 0.9% 10 ML SYRINGE IVP SCH ×4 (01:20→21:21)
[2022-09-13] MEDS: IPRATROPIUM/ALBUTEROL 3 ML NEB INH SCH ×4 (04:56→19:05)
[2022-09-13] MEDS: BUDESONIDE 0.5 MG/2 ML NEB INH SCH ×2 (04:56→19:05)
[2022-09-13 05:04] LABS: HCT - HEMATOCRIT 30.4 % (42.0-52.0); HGB - HEMOGLOBIN 10.2 g/dL (14.0-18.0); LYMPHOCYTES # (AUTO) 0.3 10^3/uL (1.5-3.5); LYMPHOCYTES % (AUTO) 4.2 %; MEAN CORPUSCULAR HEMOGLOBIN 31.1 pg (27.0-31.0); MEAN CORPUSCULAR HGB CONC 33.6 g/dL (32.0-36.0); MEAN CORPUSCULAR VOLUME 92.7 fL (80.0-94.0); MEAN PLATELET VOLUME 10.1 fL (7.4-11.4); MONOCYTES # (AUTO) 0.1 10^3/uL (0.0-1.0); MONOCYTES % (AUTO) 1.8 %; NEUTROPHILS # (AUTO) 6.6 10^3/uL (1.5-6.6); NEUTROPHILS % (AUTO) 93.4 %; PLT - PLATELET COUNT 123 10^3/uL (130-450); RED BLOOD COUNT 3.28 10^6/uL (4.70-6.10); RED CELL DISTRIBUTION WIDTH 13.7 % (12.0-15.0); WHITE BLOOD COUNT 7.1 x10^3/uL (4.8-10.8)
[2022-09-13 05:13] LABS: CALCIUM 8.2 mg/dL (8.5-10.3); CREATININE 3.1 mg/dL (0.6-1.2); POTASSIUM 4.9 mmol/L (3.5-5.0)
[2022-09-13] MEDS: methylPREDNISolone SUCCINATE 40 MG/ML VIAL IVP SCH ×3 (06:15→21:20)
[2022-09-13] MEDS: SODIUM CHLORIDE FLUSH 0.9% 10 ML SYRINGE IVP PRN (06:16)
[2022-09-13] MEDS: INSULIN LISPRO 300 UNIT/3 ML PEN SUBQ SCH ×3 (08:42→17:14)
[2022-09-13] MEDS: FERROUS SULFATE 325 MG TABLET PO SCH (08:47)
[2022-09-13] MEDS: APIXABAN 5 MG TABLET PO SCH ×2 (08:48→21:10)
[2022-09-13] MEDS: MULTIVITAMIN W/MINERALS TABLET PO SCH (08:48)
[2022-09-13] MEDS: CHOLECALCIFEROL 25 MCG TABLET PO SCH (08:49)
[2022-09-13] MEDS: CYANOCOBALAMIN 500 MCG TABLET PO SCH (08:50)
[2022-09-13] MEDS: DOCUSATE SODIUM 250 MG CAPSULE PO SCH (08:52)
[2022-09-13] MEDS: glipiZIDE 5 MG TABLET PO SCH ×2 (09:18→21:12)
[2022-09-13] MEDS: FLECAINIDE 50 MG TABLET PO SCH ×2 (09:19→21:11)
[2022-09-13] MEDS: guaiFENesin 600 MG TABLET PO SCH ×2 (09:19→21:12)
[2022-09-13] MEDS: METOPROLOL SUCCINATE 25 MG TABLET PO SCH ×2 (09:19→21:12)
[2022-09-13] MEDS: PANTOPRAZOLE 40 MG TABLET PO SCH (09:21)
[2022-09-13] MEDS: TAMSULOSIN 0.4 MG CAPSULE PO SCH (09:23)
[2022-09-13] MEDS: SERTRALINE 50 MG TABLET PO SCH (09:26)
[2022-09-13] MEDS: polyethylene glycoL 3350 17 GM PACKET PO SCH ×2 (10:42→10:43)
[2022-09-13] MEDS: CALCIUM CARBONATE CHEW 500 MG TABLET PO SCH ×3 (10:43→17:15)
[2022-09-13] MEDS ORDERED: INSULIN LISPRO 300 UNIT/3 ML PEN SUBQ SCH ×2 (17:00→21:00)
--- NOTE | 2022-09-13 17:01 | PROVIDER PROGRESS NOTE ---
Assessment/Plan - Problem List (1) Acute respiratory failure with hypoxia Assessment/Plan: Cause appears to be multifactorial: from COPD exacerbation and exacerbation of diastolic heart failure and from pleural effusion (but that was tapped and drained 09/11). On 09/12, he got again more short of breath as the day went on, Ativan was given once for his description of "anxiety". This did not help much. ABG was done that showed pO2 of 73 with saturation of 95%, and pH 7.32, PCO2 39. At 1825 he was guppy breathing and exhaling with pursed lips. CXR showed mild re- accumulation of fluid. We obtained Duplex US of swollen L arm and it did R/O DVT. He was started on empiric therapeutic Lovenox for treating a poss PE, since his home Eliquis was not ordered when he was admitted, in preparation for the th oracentesis. He was put on BIPAP yesterday afternoon, and remained on it all night, then was able to tolerate going back down to 2L n.c. this a.m. Today, by 1500, he was in resp distress again, was tachypneic and struggling. BIPAP was restarted Plan: Transfer to ICU. This was planned yesterday when BIPAP started, but there were no open ICU beds here until this afternoon. Continue BIPAP, target sats 88% or above. Stop Lovenox and resume Eliquis, dose is lower due to elevated creat Continue to treat the underlying problems. We have discussed his need to stop smoking. He will need an oximetry walk test on the day of discharge to see if he needs new home oxygen. He said he would accept using home O2. 2. COPD with acute exacerbation Probably due to viral infection: he is rhinovirus (+). He is very wheezy since admission. The pleural fluid culture is neg to date. Plan: Continue Nebulized DuoNeb treatment on a fixed schedule, and will add Duoneb as needed q4h. Cont inhaled budesonide Solumedrol was started at 40 mg IV tid. I increased this yesterday to 80 iv tid for several days , then will taper down. He received 1 dose of IV Lasix in the ER, will not repeat, considering his creatinine Will start empiric antibiotics using Zithromax and Ceftriaxone Continue Mucinex for expectoration Quitting smoking was discussed with him when daughter was on phone, on 09/12 3. Recurrent pleural effusion. This is a patient who is a smoker, and was exposed to agent orange. CT does not show a lung cancer and has been stable since October of this year. He has had a recent colonoscopy and has EGDs. The pleural effusion could be from congestive heart failure. He does not have cirrhosis. I suspect his unilateral arm swelling of L arm is probably from poor lymphatic drainage of L arm, somehow related to this L sided pleural effusion. But his admission CT chest did not describe an obstructive mass or node there. We obtained Duplex US of swollen L arm and it did R/O a DVT. Thoracentesis by ultrasound guidance for diagnostic tap was done 09/11>> post- tap the CXR revealed no residual effusion the 09/12 CXR showed small recurrence Plan: We resumed Eliquis bid today Fluid sent off for aerobic and anaerobic cx, and for pathology. Also checking fluid for glu and protein and LDH to assess if it is an exudate or transudate. We are awaiting these results to tailor treatment.Will consider a chest CT or MRI after the pleural fluid was removed. 4. Acute on chronic kidney insufficiency stage III. This gentleman's baseline creatinine appears to be about 1.2. It was over 2 and that is why his Lasix was discontinued. Now he is over 3 even before he received Lasix. His weight is significantly increased from last months of this month. Renal ultrasound was done to make sure there is no hydronephrosis or obstruction>> no hydronephrosis or obstruction but he has a large post-void residual of 450 cc in bladder. Creats here have been 3.1>> 3.2>> 3.4>> 3.1 today. Plan: Avoid nephrotoxins Follow BMP daily He needs to see his Banking Services Clerk soon after DCh and possibly also Urology. 5. Diastolic heart failure, acute. On physical exam he had pedal edema at admission, which has resolved. His lung exam has rhonchi and wheezing, c/w viral infection. He had no JVP elevation. BNP is not severely elevated at 353. But weight was reportedly significantly increased Plan: An Echocardiogram was done 09/11 and showed normal LVEF, therefore this is diastolic dysfunction, from RV overload that is compressing the LV 6. Cor pulmonale This was seen on Echo: The RV is dilated and is compressing the LV. His Cor Pulmonale is likely from his significant COPD. Plan: He will be very fluid and diuretic sensitive. 7. DM He took Glipizide at home, and may have been about to change to Trulicity, per the daughter telling his RN. His A1c now is 8.8, indicating fair but not optimal glu control. Plan: We resumed Glipizide. We ordered a DM diet We ordered Hypoglycemia protocol, sliding scale insulin coverage and fingerstick checks before meals and at bedtime. I expect that his glucose levels will be elevated while he is on Solumedrol 8. Tobacco use He used to smoke a lot but reports that in the 2 days before this admission he was down to 3 cigarettes/day. He also admitted that since admission, he has had no urge for cigarette Plan: Will not order a nicotine patch if he has no urge. The daughter on phone call 09/11, and I both reiterated the importance of stopping smoking given his COPD and PVD history. 9. History of gastritis He had a history of duodenitis, esophagitis and Iron deficiency anemia. He was just seen September 07 and had EGD with Dr. Franklin. The surg report said: Mild gastritis. The pathology report was neg for malignancy or H pylori. Hemoglobin has been acceptable. He was off anticoagulants and anti-plt agents due to the GI bleed Hx. Today he complained of "reflux acid". Tums as needed was ordered and did not help much. Plan: We have resumed Eliquis today, but not the anti-plt agent Continue proton pump inhibitor We will add Sucralfate achs prn acid reflux 10. History of atrial fibrillation. Hx of GI bleed is why he was not on anticoagulation recently. He takes Tambocor 50 mg every 12 hours and Carvedilol 12.5 mg twice daily. Plan: We resumed these meds and resumed Eliquis today. The patient reported he is scheduled to get a Watchman device implanted on October 19, 2022 Since Carvedilol is not a beta-1 selective beta-remington, it would be much better for this COPD-er to be on Metoprolol, which is purely B-1 remington. I made the change to Toprol and stopped Carvedilol, and will Dch on that 11. Hx PVD His daughter Kaleigh, in our conversation by phone in his room on 09/12, happened to mention that this pt has vascular disease, had right-sided carotid e ndarterectomy and has a vascular specialist who follows him. The daughter did not know if there were any blockages of the left arm that may explain his unilateral left arm swelling Plan: We resumed the Eliquis today, not the antiplt agents Will continue with statin if he is on that and he needs to be at target LDL less than 70 The daughter and I both reiterated to the pt, during that phone call, the need for him to stop smoking. - Current Meds Current Meds: Current Medications Generic Name Dose Route Start Last Admin Trade Name Freq PRN Reason Stop Dose Admin Albuterol/Ipratropium 3 ml 09/11/22 11:00 09/13/22 15:16 Ipratropium/Albuterol 3 Ml Neb INH 3 ml RTQID LEONELA Administration Apixaban 5 mg 09/13/22 09:00 09/13/22 08:48 Apixaban 5 Mg Tablet PO 5 mg BID LEONELA Administration Atorvastatin Calcium 80 mg 09/12/22 21:00 09/12/22 21:58 Atorvastatin 40 Mg Tablet PO 80 mg QPM LEONELA Administration Budesonide 0.5 mg 09/10/22 19:00 09/13/22 04:56 Budesonide 0.5 Mg/2 Ml Neb INH 0.5 mg RTBID LEONELA Administration Calcium Carbonate/Glycine 500 mg 09/12/22 21:00 09/13/22 12:22 Calcium Carbonate Chew 500 Mg Tablet PO 500 mg BID LEONELA Administration Cholecalciferol 50 mcg 09/13/22 09:00 09/13/22 08:49 Cholecalciferol 25 Mcg Tablet PO 50 mcg DAILY LEONELA Administration Cyanocobalamin 1,000 mcg 09/13/22 09:00 09/13/22 08:50 Cyanocobalamin 500 Mcg Tablet PO 1,000 mcg DAILY LEONELA Administration Docusate Sodium 250 - 500 mg 09/13/22 09:00 09/13/22 08:52 Docusate Sodium 250 Mg Capsule PO 250 mg DAILY LEONELA Administration Ferrous Sulfate 325 mg 09/13/22 08:00 09/13/22 08:47 Ferrous Sulfate 325 Mg Tablet PO Not Given DAILYWM LEONELA Flecainide Acetate 50 mg 09/10/22 21:00 09/13/22 09:19 Flecainide 50 Mg Tablet PO 50 mg BID LEONELA Administration Glipizide 5 mg 09/12/22 21:00 09/13/22 09:18 Glipizide 5 Mg Tablet PO 5 mg BID LEONELA Administration Guaifenesin 600 mg 09/11/22 10:00 09/13/22 09:19 Guaifenesin 600 Mg Tablet PO 600 mg BID LEONELA Administration Insulin Human Lispro 1 - 9 unit 09/13/22 12:16 09/13/22 12:18 Insulin Lispro 300 Unit/3 Ml Pen SUBQ 9 unit 0800,1200,1700,2100 LEONELA Administration Protocol Lorazepam 0.5 mg 09/11/22 05:14 09/12/22 17:33 Lorazepam 2 Mg/Ml Vial IVP 0.5 mg Q2H PRN Administration Anxiety Methylprednisolone 80 mg 09/12/22 14:00 09/13/22 14:05 Methylprednisolone Succinate 40 Mg/Ml Vial IVP 80 mg TID LEONELA Administration Metoprolol Succinate 25 mg 09/12/22 21:00 09/13/22 09:19 Metoprolol Succinate 25 Mg Tablet PO 25 mg BID LEONELA Administration Montelukast Sodium 10 mg 09/11/22 21:00 09/12/22 22:01 Montelukast 10 Mg Tablet PO 10 mg QPM LEONELA Administration Morphine Sulfate 2 mg 09/12/22 17:42 09/12/22 18:22 Morphine 2 Mg/Ml Carpuject IVP 2 mg Q4HR PRN Administration Dyspnea Multivitamins/Minerals 1 tab 09/13/22 08:00 09/13/22 08:48 Multivitamin W/Minerals Tablet PO 1 tab DAILYWM LEONELA Administration Pantoprazole Sodium 40 mg 09/13/22 09:00 09/13/22 09:21 Pantoprazole 40 Mg Tablet PO 40 mg DAILY LEONELA Administration Polyethylene Glycol 17 gm 09/12/22 09:00 09/13/22 10:43 Polyethylene Glycol 3350 17 Gm Packet PO Not Given DAILY LEONELA Sertraline HCl 50 mg 09/12/22 09:00 09/13/22 09:26 Sertraline 50 Mg Tablet PO 50 mg DAILY LEONELA Administration Sodium Chloride 10 ml 09/10/22 17:09 09/13/22 06:16 Sodium Chloride Flush 0.9% 10 Ml Syringe IVP 10 ml PRN PRN Administration NEEDED PER PROVIDER ORDERS Sodium Chloride 10 ml 09/11/22 01:00 09/13/22 10:44 Sodium Chloride Flush 0.9% 10 Ml Syringe IVP 10 ml 0100,0900,1700 LEONELA Administration Tamsulosin HCl 0.4 mg 09/12/22 09:00 09/13/22 09:23 Tamsulosin 0.4 Mg Capsule PO 0.4 mg DAILY LEONELA Administration - Lab Result Fish Bone Diagrams: 09/13/22 04:47 09/13/22 04:47 - Additional Planning My Orders: My Active Orders 09/12/22 17:42 Morphine Inj (Carpuject) [Morphine (Carpuject)] 2 mg IVP Q4HR PRN 09/12/22 18:23 BiPAP [BiPAP/CPAP] [RC] .q2prn 09/12/22 21:00 Atorvastatin [Lipitor] 80 mg PO QPM Calcium Carbonate [Tums] 500 mg PO BID Metoprolol Succinate [Toprol Xl] 25 mg PO BID glipiZIDE [Glucotrol] 5 mg PO BID 09/13/22 08:00 Ferrous Sulfate [Feosol] 325 mg PO DAILYWM Multivitamin W/Minerals [Theragran M] 1 tab PO DAILYWM 09/13/22 09:00 Apixaban [Eliquis] 5 mg PO BID Cholecalciferol [Vitamin D3] 50 mcg PO DAILY Cyanocobalamin [Vitamin B-12] 1,000 mcg PO DAILY Docusate Sodium 250Mg Capsule [Colace 250Mg Capsule] 250 - 500 mg PO DAILY Pantoprazole [Protonix] 40 mg PO DAILY 09/13/22 12:16 Insulin Lispro [Humalog Kwikpen U-100] 1 - 9 unit SUBQ 0800,1200,1700,2100 09/13/22 16:59 Admit \\ Transfer \\ Status [RC] .ONCE 09/13/22 16:59 Sucralfate [Carafate] 1 gm PO ACHS PRN Subjective - Subjective Patient Reports: Shortness of Breath (Feels air hunger) Objective Vital Signs: Vital Signs - 24 hr 09/12/22 09/12/22 09/12/22 18:01 18:37 20:56 Temperature Heart Rate 65 65 66 Heart Rate [ Brachial] Respiratory 22 Rate Blood Pressure [Right Brachial artery] O2 Saturation If not protocol 1 : Oxygen Flow, liters/minute 09/12/22 09/13/22 09/13/22 23:47 01:34 02:08 Temperature 36.4 C L Heart Rate 67 70 Heart Rate [ 60 Brachial] Respiratory 18 Rate Blood Pressure 119/65 [Right Brachial artery] O2 Saturation 97 If not protocol : Oxygen Flow, liters/minute 09/13/22 09/13/22 09/13/22 04:59 05:01 06:35 Temperature Heart Rate 63 62 Heart Rate [ Brachial] Respiratory 20 Rate Blood Pressure [Right Brachial artery] O2 Saturation If not protocol 2 : Oxygen Flow, liters/minute 09/13/22 09/13/22 09/13/22 06:45 06:59 07:00 Temperature Heart Rate 74 Heart Rate [ Brachial] Respiratory 22 Rate Blood Pressure [Right Brachial artery] O2 Saturation If not protocol 2 2 2 : Oxygen Flow, liters/minute 09/13/22 09/13/22 09/13/22 07:55 10:35 10:39 Temperature 36.0 C L Heart Rate 66 Heart Rate [ 61 Brachial] Respiratory 20 22 Rate Blood Pressure 149/73 H [Right Brachial artery] O2 Saturation 95 92 If not protocol 2 : Oxygen Flow, liters/minute 09/13/22 09/13/22 09/13/22 14:03 15:27 15:50 Temperature 36.3 C L 36.4 C L Heart Rate 65 Heart Rate [ 65 64 Brachial] Respiratory 18 20 Rate Blood Pressure 125/66 152/64 H [Right Brachial artery] O2 Saturation 91 L 97 If not protocol : Oxygen Flow, liters/minute Oxygen O2 Source BIPAP Oxygen Flow Rate 2 I&O (Last 24 Hrs): Intake and Output Totals x24h 09/11/22 09/12/22 09/13/22 23:59 23:59 23:59 Intake Total 2053.885 1630 1130 Output Total 1150 1175 850 Balance 903.885 455 280 General: Alert, Oriented x3 HEENT: Mucous membr. moist/pink Neck: Supple, No JVD Neuro: Alert, Non Focal Cardiovascular: Regular rate, No murmurs Respiratory: Wheezes Abdomen: Normal bowel sounds, Soft, No tenderness Extremities: No clubbing, No edema - Results Results: Laboratory Results WBC 7.1 x10^3/uL (4.8-10.8) 09/13/22 04:47 RBC 3.28 10^6/uL (4.70-6.10) L 09/13/22 04:47 Hgb 10.2 g/dL (14.0-18.0) L 09/13/22 04:47 Hct 30.4 % (42.0-52.0) L 09/13/22 04:47 MCV 92.7 fL (80.0-94.0) 09/13/22 04:47 MCH 31.1 pg (27.0-31.0) H 09/13/22 04:47 MCHC 33.6 g/dL (32.0-36.0) 09/13/22 04:47 RDW 13.7 % (12.0-15.0) 09/13/22 04:47 Plt Count 123 10^3/uL (130-450) L 09/13/22 04:47 MPV 10.1 fL (7.4-11.4) 09/13/22 04:47 Neut # (Auto) 6.6 10^3/uL (1.5-6.6) 09/13/22 04:47 Lymph # (Auto) 0.3 10^3/uL (1.5-3.5) L 09/13/22 04:47 Villalba # (Auto) 0.1 10^3/uL (0.0-1.0) 09/13/22 04:47 Eos # (Auto) 0.0 10^3/uL (0.0-0.7) 09/13/22 04:47 Baso # (Auto) 0.0 10^3/uL (0.0-0.1) 09/13/22 04:47 Absolute Nucleated RBC 0.00 x10^3/uL 09/13/22 04:47 Total Counted 100 09/11/22 04:38 Band Neuts % (Manual) 3 % (0-10) 09/11/22 04:38 Abnorm Lymph % (Manual) 0 % 09/11/22 04:38 Nucleated RBC % 0.0 /100WBC 09/13/22 04:47 Neutrophils # (Manual) 1.4 10^3/uL (1.5-6.6) L 09/11/22 04:38 Lymphocytes # (Manual) 0.2 10^3/uL (1.5-3.5) L 09/11/22 04:38 Monocytes # (Manual) 0.0 10^3/uL (0.0-1.0) 09/11/22 04:38 Eosinophils # (Manual) 0.0 10^3/uL (0-0.7) 09/11/22 04:38 Basophils # (Manual) 0.0 10^3/uL (0-0.1) 09/11/22 04:38 Differential Comment MANUAL DIFFERENTIAL 09/11/22 04:38 WBC Morphology NORMAL APPEARANCE (NORMAL) 09/11/22 04:38 Platelet Estimate NORMAL (130-450,000) (NORMAL) 09/11/22 04:38 Platelet Morphology NORMAL APPEARANCE (NORMAL) 09/11/22 04:38 RBC Morph Micro Appear NORMAL ALO (NORMAL) 09/11/22 04:38 PT 13.8 secs (9.9-12.6) H 09/10/22 20:20 INR 1.3 (0.8-1.2) H 09/10/22 20:20 Bld Gas Analysis Time 1451 09/12/22 14:35 Sample Site RIGHT BRACHIAL 09/12/22 14:35 ABG pH 7.32 (7.35-7.45) L 09/12/22 14:35 ABG pCO2 49 mmHg (34-45) H 09/12/22 14:35 ABG pO2 73 mmHg (80-100) L 09/12/22 14:35 ABG HCO3 24.7 mmol/L (22.0-26.0) 09/12/22 14:35 ABG Total CO2 26.2 MMOL/L (21.0-29.0) 09/12/22 14:35 ABG O2 Saturation 94 % (94-98) 09/12/22 14:35 ABG Base Excess -1.8 mmol/L (-2.0-3.0) 09/12/22 14:35 Doron Test NOT APPLICABLE 09/12/22 14:35 O2 Delivery Device NASAL CANNULA 09/12/22 14:35 O2 Liters/Min 1.00 LPM 09/12/22 14:35 Sodium 130 mmol/L (135-145) L 09/13/22 04:47 Potassium 4.9 mmol/L (3.5-5.0) 09/13/22 04:47 Chloride 97 mmol/L (101-111) L 09/13/22 04:47 Carbon Dioxide 23 mmol/L (21-32) 09/13/22 04:47 Anion Gap 10.0 (6-13) 09/13/22 04:47 BUN 70 mg/dL (6-20) H 09/13/22 04:47 Creatinine 3.1 mg/dL (0.6-1.2) H 09/13/22 04:47 Estimated GFR (MDRD) 20 (>89) L 09/13/22 04:47 Glucose 292 mg/dL (70-100) H 09/13/22 04:47 POC Whole Bld Glucose 391 mg/dL (70 - 100) H 09/13/22 16:44 Estimat Average Glucose 206 mg/dL (70-100) H 09/11/22 04:38 Hemoglobin A1c % 8.8 % (4.27-6.07) H 09/11/22 04:38 Calcium 8.2 mg/dL (8.5-10.3) L 09/13/22 04:47 Iron 57 ug/dL (45-182) 09/10/22 10:12 TIBC 256 ug/dL (250-450) 09/10/22 10:12 % Saturation 22 % (20-50) 09/10/22 10:12 Transferrin 183 mg/dL (180-329) 09/10/22 10:12 Ferritin 96.8 ng/mL (23.9-336.2) 09/10/22 10:12 Total Bilirubin 0.6 mg/dL (0.2-1.0) 09/10/22 10:17 AST 14 IU/L (10-42) 09/10/22 10:17 ALT 16 IU/L (10-60) 09/10/22 10:17 Alkaline Phosphatase 112 IU/L (42-121) 09/10/22 10:17 B-Natriuretic Peptide 321 pg/mL (5-100) H 09/13/22 04:47 Total Protein 5.5 g/dL (6.7-8.2) L 09/10/22 10:17 Albumin 2.7 g/dL (3.2-5.5) L 09/10/22 10:17 Globulin 2.8 g/dL (2.1-4.2) 09/10/22 10:17 Albumin/Globulin Ratio 1.0 (1.0-2.2) 09/10/22 10:17 Lipase 22 U/L (22-51) 09/10/22 10:17 Fluid Source PLEURAL 09/11/22 12:20 Fluid Color YELLOW 09/11/22 12:20 Fluid Clarity CLEAR 09/11/22 12:20 Fluid WBC 331 /mm^3 09/11/22 12:20 Fluid RBC < 3000 /mm^3 09/11/22 12:20 Fluid Neutrophils % 8 % 09/11/22 12:20 Fluid Lymphocytes % 84 % 09/11/22 12:20 Fluid Monocytes % 7 % 09/11/22 12:20 Fluid Eosinophils % 1 % 09/11/22 12:20 Fld Mesothelial Cell % Not Reportable 09/11/22 12:20 Fluid Glucose 334 mg/dL (.) 09/11/22 12:20 Fluid Total Protein 1.3 g/dL (.) 09/11/22 12:20 Fluid LDH 67 IU/L (.) 09/11/22 12:20 Nasal Adenovirus (PCR) NOT DETECTED 09/10/22 10:19 Nasal B. parapertussis DNA (PCR) NOT DETECTED 09/10/22 10:19 Nasal Coronavir 229E PCR NOT DETECTED 09/10/22 10:19 Nasal Coronavir HKU1 PCR NOT DETECTED 09/10/22 10:19 Nasal Coronavir NL63 PCR NOT DETECTED 09/10/22 10:19 Nasal Coronavir OC43 PCR NOT DETECTED 09/10/22 10:19 Nasal Enterovir/Rhinovir PCR DETECTED A 09/10/22 10:19 Nasal Influenza B PCR NOT DETECTED 09/10/22 10:19 Nasal Influenza A PCR NOT DETECTED 09/10/22 10:19 Nasal Parainfluen 1 PCR NOT DETECTED 09/10/22 10:19 Nasal Parainfluen 2 PCR NOT DETECTED 09/10/22 10:19 Nasal Parainfluen 3 PCR NOT DETECTED 09/10/22 10:19 Nasal Parainfluen 4 PCR NOT DETECTED 09/10/22 10:19 Nasal RSV (PCR) NOT DETECTED 09/10/22 10:19 Nasal B.pertussis DNA PCR NOT DETECTED 09/10/22 10:19 Nasal C.pneumoniae (PCR) NOT DETECTED 09/10/22 10:19 True Human Metapneumo PCR NOT DETECTED 09/10/22 10:19 Nasal M.pneumoniae (PCR) NOT DETECTED 09/10/22 10:19 Nasal SARS-CoV-2 (PCR) NOT DETECTED 09/10/22 10:19 - Procedures Procedures: Procedures EXCISION OF ASCENDING COLON, ENDO (02/13/21) EXCISION OF DUODENUM, ENDO, DIAGN (09/07/22) EXCISION OF RECTUM, ENDO (02/13/21) EXCISION OF STOMACH, PYLORUS, ENDO, DIAGN (09/07/22) EXCISION OF TRANSVERSE COLON, ENDO (02/13/21)
[2022-09-13] MEDS ORDERED: ONDANSETRON 4 MG/2 ML VIAL IVP PRN (17:54)
[2022-09-13] MEDS ORDERED: ZOLPIDEM 5 MG TABLET PO PRN (17:54)
[2022-09-13] MEDS: CEFEPIME 2 GM in SODIUM CHLORIDE 0.9% MINIBAG 100 ML IV SCH (18:54)
[2022-09-13] MEDS: LORazepam 2 MG/ML VIAL IVP PRN (19:02)
[2022-09-13] MEDS ORDERED: BACITRACIN ZINC OINT 1 PACKET TOP PRN (20:30)
[2022-09-13] MEDS: ATORVASTATIN 40 MG TABLET PO SCH (21:11)
[2022-09-13] MEDS: MONTELUKAST 10 MG TABLET PO SCH (21:12)
[2022-09-14] MEDS: SUCRALFATE 1 GM/10 ML UDC PO PRN ×3 (02:56→16:23)
[2022-09-14] MEDS: MORPHINE 2 MG/ML CARPUJECT IVP PRN (02:56)
[2022-09-14] MEDS: methylPREDNISolone SUCCINATE 40 MG/ML VIAL IVP SCH ×3 (05:58→22:14)
[2022-09-14] MEDS: SODIUM CHLORIDE FLUSH 0.9% 10 ML SYRINGE IVP PRN (05:59)
[2022-09-14] MEDS: IPRATROPIUM/ALBUTEROL 3 ML NEB INH SCH ×4 (06:20→18:50)
[2022-09-14] MEDS: BUDESONIDE 0.5 MG/2 ML NEB INH SCH ×2 (06:20→18:05)
[2022-09-14 07:45] LABS: HCT - HEMATOCRIT 32.7 % (42.0-52.0); HGB - HEMOGLOBIN 11.1 g/dL (14.0-18.0); LYMPHOCYTES # (AUTO) 0.3 10^3/uL (1.5-3.5); LYMPHOCYTES % (AUTO) 3.5 %; MEAN CORPUSCULAR HEMOGLOBIN 30.9 pg (27.0-31.0); MEAN CORPUSCULAR HGB CONC 33.9 g/dL (32.0-36.0); MEAN CORPUSCULAR VOLUME 91.1 fL (80.0-94.0); MEAN PLATELET VOLUME 10.2 fL (7.4-11.4); MONOCYTES # (AUTO) 0.2 10^3/uL (0.0-1.0); MONOCYTES % (AUTO) 2.6 %; NEUTROPHILS # (AUTO) 7.8 10^3/uL (1.5-6.6); NEUTROPHILS % (AUTO) 93.5 %; PLT - PLATELET COUNT 117 10^3/uL (130-450); RED BLOOD COUNT 3.59 10^6/uL (4.70-6.10); RED CELL DISTRIBUTION WIDTH 13.6 % (12.0-15.0); WHITE BLOOD COUNT 8.4 x10^3/uL (4.8-10.8)
[2022-09-14 07:57] LABS: CALCIUM 8.3 mg/dL (8.5-10.3); CREATININE 3.2 mg/dL (0.6-1.2); POTASSIUM 4.7 mmol/L (3.5-5.0)
[2022-09-14] MEDS: TAMSULOSIN 0.4 MG CAPSULE PO SCH (08:03)
[2022-09-14] MEDS: DOCUSATE SODIUM 250 MG CAPSULE PO SCH (08:03)
[2022-09-14] MEDS: FLECAINIDE 50 MG TABLET PO SCH ×2 (08:03→20:28)
[2022-09-14] MEDS: CHOLECALCIFEROL 25 MCG TABLET PO SCH (08:03)
[2022-09-14] MEDS: glipiZIDE 5 MG TABLET PO SCH ×2 (08:03→20:28)
[2022-09-14] MEDS: SODIUM CHLORIDE FLUSH 0.9% 10 ML SYRINGE IVP SCH ×4 (08:04→22:15)
[2022-09-14] MEDS: FERROUS SULFATE 325 MG TABLET PO SCH (08:04)
[2022-09-14] MEDS: APIXABAN 5 MG TABLET PO SCH ×2 (08:04→20:28)
[2022-09-14] MEDS: PANTOPRAZOLE 40 MG TABLET PO SCH (08:04)
[2022-09-14] MEDS: SERTRALINE 50 MG TABLET PO SCH (08:04)
[2022-09-14] MEDS: MULTIVITAMIN W/MINERALS TABLET PO SCH (08:04)
[2022-09-14] MEDS: CALCIUM CARBONATE CHEW 500 MG TABLET PO SCH ×2 (08:04→20:27)
[2022-09-14] MEDS: CYANOCOBALAMIN 500 MCG TABLET PO SCH (08:04)
[2022-09-14] MEDS: guaiFENesin 600 MG TABLET PO SCH ×2 (08:04→20:27)
[2022-09-14] MEDS: polyethylene glycoL 3350 17 GM PACKET PO SCH (08:04)
[2022-09-14] MEDS: METOPROLOL SUCCINATE 25 MG TABLET PO SCH ×2 (08:04→20:27)
[2022-09-14] MEDS: INSULIN LISPRO 300 UNIT/3 ML PEN SUBQ SCH ×4 (08:08→20:29)
--- NOTE | 2022-09-14 09:29 | PROVIDER PROGRESS NOTE ---
Subjective - Subjective Pt reports feeling: No change (Feels very tired, but is less SOB today. He only nwore his BIPAP for 2 hours last night, mostly was on n.c. suppl O2.) Objective - Vital Signs/Intake & Output Vital Signs: Vital Signs Temp Pulse Pulse Resp BP Pulse Ox O2 Flow Rate 09/14/22 09:00 2 09/14/22 08:00 36.6 C 60 19 142/77 H 98 2 09/14/22 07:00 60 16 155/83 H 99 2 09/14/22 06:20 60 18 4 09/14/22 06:00 62 16 153/81 H 96 2 Intake & Output: Intake & Output 09/11/22 09/12/22 09/13/22 09/14/22 23:59 23:59 23:59 23:59 Intake Total 2053.885 1630 1450 75 Output Total 1150 1175 1150 800 Balance 903.885 455 300 -725 - Objective General Appearance: positive: No acute distress, Lethargic (Appears fatigued) Eyes Bilateral: positive: Normal inspection ENT: positive: ENT inspection nml, No signs of dehydration Neck: positive: Nml inspection, No JVD Respiratory: positive: Other (Clear apices posteriorly, wheezes and rhonchi in lower lung lozano bilateral) Cardiovascular: positive: No murmur, Other (Distant heart sounds) Abdomen: positive: Non-tender, No distention Skin: positive: Warm, Dry Extremities: positive: Non-tender, Other (1+ ankle edema) Neurologic/Psychiatric: positive: Oriented x3, Other (Poor memory) - Lab Results Fish Bones: 09/14/22 07:40 09/14/22 07:40 Other Labs: Lab Results x24hrs 09/14/22 09/14/22 09/14/22 Range/Units 07:40 07:40 07:33 WBC 8.4 (4.8-10.8) x10^3/uL RBC 3.59 L (4.70-6.10) 10^6/uL Hgb 11.1 L (14.0-18.0) g/dL Hct 32.7 L (42.0-52.0) % MCV 91.1 (80.0-94.0) fL MCH 30.9 (27.0-31.0) pg MCHC 33.9 (32.0-36.0) g/dL RDW 13.6 (12.0-15.0) % Plt Count 117 L (130-450) 10^3/uL MPV 10.2 (7.4-11.4) fL Neut # (Auto) 7.8 H (1.5-6.6) 10^3/uL Lymph # (Auto) 0.3 L (1.5-3.5) 10^3/uL [place] # (Auto) 0.2 (0.0-1.0) 10^3/uL Eos # (Auto) 0.0 (0.0-0.7) 10^3/uL Baso # (Auto) 0.0 (0.0-0.1) 10^3/uL Absolute Nucleated RBC 0.00 x10^3/uL Nucleated RBC % 0.0 /100WBC Sodium 128 L (135-145) mmol/L Potassium 4.7 (3.5-5.0) mmol/L Chloride 94 L (101-111) mmol/L Carbon Dioxide 27 (21-32) mmol/L Anion Gap 7.0 (6-13) BUN 79 H (6-20) mg/dL Creatinine 3.2 H (0.6-1.2) mg/dL Estimated GFR (MDRD) 19 L (>89) Glucose 256 H (70-100) mg/dL POC Whole Bld Glucose 243 H (70 - 100) mg/dL Calcium 8.3 L (8.5-10.3) mg/dL Nasal Screen MRSA (PCR) (NEGATIVE) 09/13/22 09/13/22 09/13/22 Range/Units 20:29 18:20 16:44 WBC (4.8-10.8) x10^3/uL RBC (4.70-6.10) 10^6/uL Hgb (14.0-18.0) g/dL Hct (42.0-52.0) % MCV (80.0-94.0) fL MCH (27.0-31.0) pg MCHC (32.0-36.0) g/dL RDW (12.0-15.0) % Plt Count (130-450) 10^3/uL MPV (7.4-11.4) fL Neut # (Auto) (1.5-6.6) 10^3/uL Lymph # (Auto) (1.5-3.5) 10^3/uL [place] # (Auto) (0.0-1.0) 10^3/uL Eos # (Auto) (0.0-0.7) 10^3/uL Baso # (Auto) (0.0-0.1) 10^3/uL Absolute Nucleated RBC x10^3/uL Nucleated RBC % /100WBC Sodium (135-145) mmol/L Potassium (3.5-5.0) mmol/L Chloride (101-111) mmol/L Carbon Dioxide (21-32) mmol/L Anion Gap (6-13) BUN (6-20) mg/dL Creatinine (0.6-1.2) mg/dL Estimated GFR (MDRD) (>89) Glucose (70-100) mg/dL POC Whole Bld Glucose 232 H 391 H (70 - 100) mg/dL Calcium (8.5-10.3) mg/dL Nasal Screen MRSA (PCR) NEGATIVE (NEGATIVE) 09/13/22 Range/Units 11:39 WBC (4.8-10.8) x10^3/uL RBC (4.70-6.10) 10^6/uL Hgb (14.0-18.0) g/dL Hct (42.0-52.0) % MCV (80.0-94.0) fL MCH (27.0-31.0) pg MCHC (32.0-36.0) g/dL RDW (12.0-15.0) % Plt Count (130-450) 10^3/uL MPV (7.4-11.4) fL Neut # (Auto) (1.5-6.6) 10^3/uL Lymph # (Auto) (1.5-3.5) 10^3/uL [place] # (Auto) (0.0-1.0) 10^3/uL Eos # (Auto) (0.0-0.7) 10^3/uL Baso # (Auto) (0.0-0.1) 10^3/uL Absolute Nucleated RBC x10^3/uL Nucleated RBC % /100WBC Sodium (135-145) mmol/L Potassium (3.5-5.0) mmol/L Chloride (101-111) mmol/L Carbon Dioxide (21-32) mmol/L Anion Gap (6-13) BUN (6-20) mg/dL Creatinine (0.6-1.2) mg/dL Estimated GFR (MDRD) (>89) Glucose (70-100) mg/dL POC Whole Bld Glucose 372 H (70 - 100) mg/dL Calcium (8.5-10.3) mg/dL Nasal Screen MRSA (PCR) (NEGATIVE) Assessment/Plan - Problem List (1) Acute respiratory failure with hypoxia Impression: Cause appears to be multifactorial: from COPD exacerbation and exacerbation of diastolic heart failure and from pleural effusion (but that was tapped and drained 09/11). On 09/12, he got again more short of breath as the day went on, Ativan was given once for his description of "anxiety". This did not help much. ABG was done that showed pO2 of 73 with saturation of 95%, and pH 7.32, PCO2 39. At 1825 he was guppy breathing and exhaling with pursed lips. CXR showed mild re- accumulation of fluid. We obtained Duplex US of swollen L arm and it did R/O DVT. He was started on empiric therapeutic Lovenox for treating a poss PE, since yesterday he was in resp distress again, was tachypneic and struggling. BIPAP was restarted and he was moved to ICU yesterday. We stopped Lovenox and resumed Eliquis on 09/13. His dose has been lowered due to renal failure Plan: Remain in ICU Continue BIPAP nightly to allow his resp muscles to rest, target sats are 88% or above. Continue to treat the underlying problems. We have discussed his need to stop smoking. He will need an oximetry walk test on the day of discharge to see if he needs new home oxygen. He said he would accept using home O2. 2. COPD with acute exacerbation Probably due to viral infection: he is rhinovirus (+). He is very wheezy since admission. The pleural fluid culture final result was neg. We started empiric antibx on 09/13, using Cefepime IV to cover Pseudomonas and since he has frequent exacerbations, not Zithromax and Ceftriaxone, because the Zithromax plus being on Flecainide would give him high risk of prolonged QT. Quitting smoking was discussed with him when daughter was on phone, on 09/12 Plan: Continue Nebulized DuoNeb treatment on a fixed schedule, and will add Duoneb as needed q4h. Cont inhaled budesonide Continue Solumedrol 80 iv tid Continue empiric Cefepime 2 g IV 3 times daily to cover Pseudomonas and since he has frequent exacerbations. 3. Recurrent pleural effusion. It was tapped on . His risks for cancer are smoking & was exposed to agent orange. CT did not show a lung cancer and has been stable since October of this year. The pleural effusion could be from congestive heart failure or CKD, since the specimen is a transudate. He does not have cirrhosis. He also had unilateral arm swelling of L arm. We obtained Duplex US of swollen L arm and it did R/O a DVT. Thoracentesis by ultrasound guidance for diagnostic tap was done 09/11>> post- tap the CXR revealed no residual effusion, but the 09/12 CXR showed small recurrence Plan: We resumed Eliquis bid yesterday 09/13, since a repeat thoracentesis was not needed. Fluid sent off for aerobic and anaerobic cx, and the final result grew no bacteria Awaiting pathology report which can take a week, I told the pt this. Will consider a chest CT or MRI after the pleural fluid was removed. 4. DM He took Glipizide at home, and may have been about to change to Trulicity, per the daughter telling his RN. His A1c now is 8.8, indicating fair but not optimal glu control. I expected that his glucose levels will be elevated while he is on Solumedrol, they have been 200-300. Plan: We resumed Glipizide bid We ordered a DM diet We ordered Hypoglycemia protocol, sliding scale insulin coverage and fingerstick checks before meals and at bedtime. Will increase nutrition time Insulin from 5U to 7U. We are also increasing Lantus 10U bid>> 15 U bid. 5 Acute on chronic kidney insufficiency stage III. This gentleman's baseline creatinine appears to be about 1.2. It was over 2 and that is why his Lasix was discontinued. Now he is over 3 even before he received Lasix. His weight is significantly increased from last month. Renal ultrasound was done to make sure there is no hydronephrosis or obstruction>> no hydronephrosis or obstruction but he has a large post-void residual of 450 cc in bladder. Creats here have been 3.1>> 3.2>> 3.4>> 3.1>> 3.2 today. This may be his new chronic creat level. Plan: Avoid nephrotoxins We are not giving iv hydration, just his oral liquid intake. Follow BMP daily He needs to see his Striping Machine Operator soon after DCh and possibly also Urology. 6. Diastolic heart failure, acute. On physical exam he had pedal edema at admission, which has resolved. His lung exam has rhonchi and wheezing, c/w viral infection. He had no JVP elevation. BNP is not severely elevated at 353. But weight was reportedly significantly increased An Echocardiogram was done 09/11 and showed normal LVEF, therefore this is diastolic dysfunction, from RV overload that is compressing the LV 7. Cor pulmonale This was seen on Echo: The RV is dilated and is compressing the LV. His Cor Pulmonale is likely from his significant COPD. He will be very fluid and diuretic sensitive. 8. Tobacco use He used to smoke a lot but reports that in the 2 days before this admission he was down to 3 cigarettes/day. He also admitted that since admission, he has had no urge for cigarette Plan: Will not order a nicotine patch if he has no urge and he does not want it. The daughter on phone call 09/11, and I both reiterated the importance of stopping smoking given his COPD and PVD history. 9. History of gastritis He had a history of duodenitis, esophagitis and Iron deficiency anemia. He was just seen September 07 and had EGD with Dr. Franklin. The surg report said: Mild gastritis. The pathology report was neg for malignancy or H pylori. Hemoglobin has been acceptable. He was off anticoagulants and anti-plt agents due to the GI bleed Hx. Today he complained of "reflux acid". Tums as needed was ordered and did not help much. Plan: We have resumed Eliquis on 09/13 but not the anti-plt agent Continue proton pump inhibitor Continue TUMS prn and Sucralfate achs prn acid reflux 10. History of atrial fibrillation. Hx of GI bleed is why he was not on anticoagulation recently. He takes Tambocor 50 mg every 12 hours and Carvedilol 12.5 mg twice daily. Plan: We resumed these meds and resumed Eliquis on 09/13. The patient reported he is scheduled to get a Watchman device implanted on 2022 Since Carvedilol is not a beta-1 selective beta-remington, it would be much better for this COPD-er to be on Metoprolol, which is purely B-1 remington. I made the change to Toprol and stopped Carvedilol, and will Dch on that . Hx PVD His daughter Kaleigh, in our conversation by phone in his room on 09/12, happened to mention that this pt has vascular disease, had right-sided carotid endarterectomy and has a vascular specialist who follows him. The daughter did not know if there were any blockages of the left arm that may explain his unilateral left arm swelling Plan: We resumed the Eliquis, not the antiplt agents Will continue with statin if he is on that and he needs to be at target LDL less than 70 The daughter and I both reiterated to the pt, during that phone call, the need for him to stop smoking.
[2022-09-14] MEDS ORDERED: INSULIN GLARGINE-YFGN 300 UNIT/3 ML PEN SUBQ ONE (09:30)
[2022-09-14] MEDS ORDERED: SENNA 8.6 MG TABLET PO SCH (14:00)
[2022-09-14] MEDS ORDERED: MORPHINE 2 MG/ML CARPUJECT IVP PRN (16:30)
[2022-09-14] MEDS: CEFEPIME 2 GM in SODIUM CHLORIDE 0.9% MINIBAG 100 ML IV SCH (18:00)
[2022-09-14] MEDS: ATORVASTATIN 40 MG TABLET PO SCH (20:27)
[2022-09-14] MEDS: MONTELUKAST 10 MG TABLET PO SCH (20:27)
[2022-09-14] MEDS: hydrALAZINE 10 MG TABLET PO SCH (22:15)
[2022-09-14] MEDS: PUMP NAS SCH (22:15)
[2022-09-14] MEDS: AZELASTINE HCL 137 MCG/0.137 ML NAS SCH (22:15)
[2022-09-15 05:03] LABS: HGB - HEMOGLOBIN 11.4 g/dL (14.0-18.0); LYMPHOCYTES # (AUTO) 0.4 10^3/uL (1.5-3.5); LYMPHOCYTES % (AUTO) 3.6 %; MEAN CORPUSCULAR HEMOGLOBIN 30.8 pg (27.0-31.0); MEAN CORPUSCULAR HGB CONC 33.5 g/dL (32.0-36.0); MEAN CORPUSCULAR VOLUME 91.9 fL (80.0-94.0); MEAN PLATELET VOLUME 10.2 fL (7.4-11.4); MONOCYTES # (AUTO) 0.2 10^3/uL (0.0-1.0); MONOCYTES % (AUTO) 2.4 %; NEUTROPHILS % (AUTO) 93.5 %; PLT - PLATELET COUNT 142 10^3/uL (130-450); RED CELL DISTRIBUTION WIDTH 13.7 % (12.0-15.0); WHITE BLOOD COUNT 9.6 x10^3/uL (4.8-10.8)
[2022-09-15 05:09] LABS: CALCIUM 8.5 mg/dL (8.5-10.3); CREATININE 3.1 mg/dL (0.6-1.2)
[2022-09-15 05:12] LABS: CALCIUM, IONIZED 1.17 mmol/L (1.15-1.33); MAGNESIUM 2.4 mg/dL (1.7-2.8); PHOSPHORUS 5.4 mg/dL (2.5-4.6); VBG PH 7.267 (7.31-7.41)
[2022-09-15] MEDS: methylPREDNISolone SUCCINATE 40 MG/ML VIAL IVP SCH ×3 (05:44→22:06)
[2022-09-15] MEDS: hydrALAZINE 10 MG TABLET PO SCH ×3 (05:44→22:06)
[2022-09-15] MEDS: BUDESONIDE 0.5 MG/2 ML NEB INH SCH ×2 (06:14→19:23)
[2022-09-15] MEDS: IPRATROPIUM/ALBUTEROL 3 ML NEB INH SCH ×4 (06:14→19:23)
[2022-09-15] MEDS: INSULIN LISPRO 300 UNIT/3 ML PEN SUBQ SCH ×4 (08:23→20:31)
[2022-09-15] MEDS: INSULIN GLARGINE-YFGN 300 UNIT/3 ML PEN SUBQ SCH (08:25)
[2022-09-15] MEDS: MULTIVITAMIN W/MINERALS TABLET PO SCH (08:26)
[2022-09-15] MEDS: FERROUS SULFATE 325 MG TABLET PO SCH (08:26)
[2022-09-15 08:27] LABS: VBG BASE EXCESS -3.4 mmol/L (-2 - +2); VBG HCO3 23.6 mmol/L (23-28); VBG OXYGEN SATURATION 58.2 % (60-80); VBG PCO2 51.3 mmHg (41-51); VBG PH 7.281 (7.31-7.41); VBG PO2 32.2 mmHg (25-47); VBG TOTAL CO2 25.2 mmol/L (24-29)
[2022-09-15] MEDS ORDERED: SENNA 8.6 MG TABLET PO SCH (09:00)
[2022-09-15] MEDS: APIXABAN 5 MG TABLET PO SCH ×2 (09:16→20:30)
[2022-09-15] MEDS: CALCIUM CARBONATE CHEW 500 MG TABLET PO SCH ×2 (09:17→20:29)
[2022-09-15] MEDS: CYANOCOBALAMIN 500 MCG TABLET PO SCH (09:17)
[2022-09-15] MEDS: FOLIC ACID 1 MG TABLET PO SCH (09:18)
[2022-09-15] MEDS: CHOLECALCIFEROL 25 MCG TABLET PO SCH (09:18)
[2022-09-15] MEDS: guaiFENesin 600 MG TABLET PO SCH ×2 (09:18→20:30)
[2022-09-15] MEDS: METOPROLOL SUCCINATE 25 MG TABLET PO SCH ×2 (09:18→20:30)
[2022-09-15] MEDS: DOCUSATE SODIUM 250 MG CAPSULE PO SCH (09:18)
[2022-09-15] MEDS: TAMSULOSIN 0.4 MG CAPSULE PO SCH (09:19)
[2022-09-15] MEDS: SERTRALINE 50 MG TABLET PO SCH (09:19)
[2022-09-15] MEDS: glipiZIDE 5 MG TABLET PO SCH ×2 (09:19→20:30)
[2022-09-15] MEDS: PANTOPRAZOLE 40 MG TABLET PO SCH (09:19)
[2022-09-15] MEDS: polyethylene glycoL 3350 17 GM PACKET PO SCH (09:20)
[2022-09-15] MEDS: FLECAINIDE 50 MG TABLET PO SCH ×2 (09:20→20:30)
--- NOTE | 2022-09-15 09:43 | XRAY Report ---
PROCEDURE: Chest 1 View X-Ray INDICATIONS: Hypoxia and SOB, F/U pleural effusion and poss CHF TECHNIQUE: One view of the chest was acquired. COMPARISON: 09/12/2022 FINDINGS: Surgical changes and devices: Left chest wall pulse with electrode leads in place Lungs and pleura: Inflation suspected emphysema. Small left opacity and effusion at the base, simila r compared to 09/12/2022 Mediastinum: Heart size is within normal limits. Bones and chest wall: No suspicious bony lesions. Overlying soft tissues appear unremarkable. IMPRESSION: Compared to 09/12/2022, similar left base small opacity and effusion. Consider future imaging surveil [place] to assess for resolution. Suspected emphysema. Reviewed by: Chau Gibbons MD on 09/15/2022 8:41 AM [facility] Approved by: Chau Gibbons MD on 09/15/2022 8:41 AM [facility] Station ID: [id number]
[2022-09-15] MEDS: PUMP NAS SCH ×2 (09:49→21:59)
[2022-09-15] MEDS: SODIUM CHLORIDE FLUSH 0.9% 10 ML SYRINGE IVP SCH ×3 (09:49→22:06)
[2022-09-15] MEDS: AZELASTINE HCL 137 MCG/0.137 ML NAS SCH ×2 (09:49→21:59)
[2022-09-15 10:13] LABS: ABG HCO3 21.7 mmol/L (22.0-26.0); ABG PCO2 43 mmHg (34-45); ABG PH 7.32 (7.35-7.45); ABG PO2 77 mmHg (80-100)
[2022-09-15 10:14] LABS: ABG BASE EXCESS -4.3 mmol/L (-2.0-3.0); ABG OXYGEN SATURATION 95 % (94-98); ALLEN TEST POSITIVE
[2022-09-15] MEDS: SUCRALFATE 1 GM/10 ML UDC PO PRN ×2 (12:18→16:41)
[2022-09-15] MEDS: SENNA 8.6 MG TABLET PO SCH ×2 (12:33→18:51)
[2022-09-15] MEDS: SODIUM CHLORIDE FLUSH 0.9% 10 ML SYRINGE IVP PRN (14:45)
--- NOTE | 2022-09-15 15:34 | PROVIDER PROGRESS NOTE ---
Subjective - Subjective Pt reports feeling: Improved (Less shortness of breath, use the BiPAP all last night, then switched over to nasal cannula during the day. Still sitting in a tripod position to breathe. He tells me that PFTs have been ordered and tried to be done twice, and that he had "no energy to do exhaling".) Objective - Vital Signs/Intake & Output Reviewed Vital Signs: Yes Vital Signs: Vital Signs Pulse Pulse Resp BP Pulse Ox O2 Flow Rate 09/15/22 15:00 60 16 150/80 H 100 09/15/22 13:00 2 09/15/22 12:00 66 18 Intake & Output: Intake & Output 09/12/22 09/13/22 09/14/22 09/15/22 23:59 23:59 23:59 23:59 Intake Total 1630 1450 1065 910 Output Total 1175 1150 910 150 Balance 455 300 155 760 - Objective General Appearance: positive: No acute distress, Alert Eyes Bilateral: positive: Normal inspection, EOMI ENT: positive: ENT inspection nml, Other (wearing O2 per n.c. Throat is mildly reddened, not angry red and no pustules or white lesions are seen) Neck: positive: Nml inspection, No JVD Respiratory: positive: Breath sounds nml (Except poor air movement in all lung lozano. No rhonchi or wheezing heard.) - Lab Results Fish Bones: 09/15/22 04:43 09/15/22 04:43 Other Labs: Lab Results x24hrs 09/15/22 09/15/22 09/15/22 Range/Units 11:45 10:05 08:00 WBC (4.8-10.8) x10^3/uL RBC (4.70-6.10) 10^6/uL Hgb (14.0-18.0) g/dL Hct (42.0-52.0) % MCV (80.0-94.0) fL MCH (27.0-31.0) pg MCHC (32.0-36.0) g/dL RDW (12.0-15.0) % Plt Count (130-450) 10^3/uL MPV (7.4-11.4) fL Neut # (Auto) (1.5-6.6) 10^3/uL Lymph # (Auto) (1.5-3.5) 10^3/uL [place] # (Auto) (0.0-1.0) 10^3/uL Eos # (Auto) (0.0-0.7) 10^3/uL Baso # (Auto) (0.0-0.1) 10^3/uL Absolute Nucleated RBC x10^3/uL Nucleated RBC % /100WBC Bld Gas Analysis Time 1005 Sample Site RIGHT BRACHIAL ABG pH 7.32 L (7.35-7.45) ABG pCO2 43 (34-45) mmHg ABG pO2 77 L (80-100) mmHg ABG HCO3 21.7 L (22.0-26.0) mmol/L ABG Total CO2 23.0 (21.0-29.0) MMOL/L ABG O2 Saturation 95 (94-98) % ABG Base Excess -4.3 L (-2.0-3.0) mmol/L Doron Test POSITIVE VBG pH 7.281 L (7.31-7.41) VBG pCO2 51.3 H (41-51) mmHg VBG pO2 32.2 (25-47) mmHg VBG HCO3 23.6 (23-28) mmol/L VBG Total CO2 25.2 (24-29) mmol/L VBG O2 Saturation 58.2 L (60-80) % VBG Base Excess -3.4 L (-2 - +2) mmol/L Ionized Calcium (1.15-1.33) mmol/L O2 Delivery Device NASAL CANNULA O2 Liters/Min 2.00 LPM Sodium (135-145) mmol/L Potassium (3.5-5.0) mmol/L Chloride (101-111) mmol/L Carbon Dioxide (21-32) mmol/L Anion Gap (6-13) BUN (6-20) mg/dL Creatinine (0.6-1.2) mg/dL Estimated GFR (MDRD) (>89) Glucose (70-100) mg/dL POC Whole Bld Glucose 330 H (70 - 100) mg/dL Calcium (8.5-10.3) mg/dL Phosphorus (2.5-4.6) mg/dL Magnesium (1.7-2.8) mg/dL 09/15/22 09/15/22 09/15/22 Range/Units 07:43 04:43 04:43 WBC (4.8-10.8) x10^3/uL RBC (4.70-6.10) 10^6/uL Hgb (14.0-18.0) g/dL Hct (42.0-52.0) % MCV (80.0-94.0) fL MCH (27.0-31.0) pg MCHC (32.0-36.0) g/dL RDW (12.0-15.0) % Plt Count (130-450) 10^3/uL MPV (7.4-11.4) fL Neut # (Auto) (1.5-6.6) 10^3/uL Lymph # (Auto) (1.5-3.5) 10^3/uL [place] # (Auto) (0.0-1.0) 10^3/uL Eos # (Auto) (0.0-0.7) 10^3/uL Baso # (Auto) (0.0-0.1) 10^3/uL Absolute Nucleated RBC x10^3/uL Nucleated RBC % /100WBC Bld Gas Analysis Time Sample Site ABG pH (7.35-7.45) ABG pCO2 (34-45) mmHg ABG pO2 (80-100) mmHg ABG HCO3 (22.0-26.0) mmol/L ABG Total CO2 (21.0-29.0) MMOL/L ABG O2 Saturation (94-98) % ABG Base Excess (-2.0-3.0) mmol/L Doron Test VBG pH 7.267 L (7.31-7.41) VBG pCO2 (41-51) mmHg VBG pO2 (25-47) mmHg VBG HCO3 (23-28) mmol/L VBG Total CO2 (24-29) mmol/L VBG O2 Saturation (60-80) % VBG Base Excess (-2 - +2) mmol/L Ionized Calcium 1.17 (1.15-1.33) mmol/L O2 Delivery Device O2 Liters/Min LPM Sodium (135-145) mmol/L Potassium (3.5-5.0) mmol/L Chloride (101-111) mmol/L Carbon Dioxide (21-32) mmol/L Anion Gap (6-13) BUN (6-20) mg/dL Creatinine (0.6-1.2) mg/dL Estimated GFR (MDRD) (>89) Glucose (70-100) mg/dL POC Whole Bld Glucose 202 H (70 - 100) mg/dL Calcium (8.5-10.3) mg/dL Phosphorus 5.4 H (2.5-4.6) mg/dL Magnesium 2.4 (1.7-2.8) mg/dL 09/15/22 09/15/22 09/14/22 Range/Units 04:43 04:43 20:17 WBC 9.6 (4.8-10.8) x10^3/uL RBC 3.70 L (4.70-6.10) 10^6/uL Hgb 11.4 L (14.0-18.0) g/dL Hct 34.0 L (42.0-52.0) % MCV 91.9 (80.0-94.0) fL MCH 30.8 (27.0-31.0) pg MCHC 33.5 (32.0-36.0) g/dL RDW 13.7 (12.0-15.0) % Plt Count 142 (130-450) 10^3/uL MPV 10.2 (7.4-11.4) fL Neut # (Auto) 9.0 H (1.5-6.6) 10^3/uL Lymph # (Auto) 0.4 L (1.5-3.5) 10^3/uL [place] # (Auto) 0.2 (0.0-1.0) 10^3/uL Eos # (Auto) 0.0 (0.0-0.7) 10^3/uL Baso # (Auto) 0.0 (0.0-0.1) 10^3/uL Absolute Nucleated RBC 0.00 x10^3/uL Nucleated RBC % 0.0 /100WBC Bld Gas Analysis Time Sample Site ABG pH (7.35-7.45) ABG pCO2 (34-45) mmHg ABG pO2 (80-100) mmHg ABG HCO3 (22.0-26.0) mmol/L ABG Total CO2 (21.0-29.0) MMOL/L ABG O2 Saturation (94-98) % ABG Base Excess (-2.0-3.0) mmol/L Doron Test VBG pH (7.31-7.41) VBG pCO2 (41-51) mmHg VBG pO2 (25-47) mmHg VBG HCO3 (23-28) mmol/L VBG Total CO2 (24-29) mmol/L VBG O2 Saturation (60-80) % VBG Base Excess (-2 - +2) mmol/L Ionized Calcium (1.15-1.33) mmol/L O2 Delivery Device O2 Liters/Min LPM Sodium 129 L (135-145) mmol/L Potassium 5.0 (3.5-5.0) mmol/L Chloride 96 L (101-111) mmol/L Carbon Dioxide 24 (21-32) mmol/L Anion Gap 9.0 (6-13) BUN 78 H (6-20) mg/dL Creatinine 3.1 H (0.6-1.2) mg/dL Estimated GFR (MDRD) 20 L (>89) Glucose 202 H (70-100) mg/dL POC Whole Bld Glucose 212 H (70 - 100) mg/dL Calcium 8.5 (8.5-10.3) mg/dL Phosphorus (2.5-4.6) mg/dL Magnesium (1.7-2.8) mg/dL // Range/Units 16:21 WBC (4.8-10.8) x10^3/uL RBC (4.70-6.10) 10^6/uL Hgb (14.0-18.0) g/dL Hct (42.0-52.0) % MCV (80.0-94.0) fL MCH (27.0-31.0) pg MCHC (32.0-36.0) g/dL RDW (12.0-15.0) % Plt Count (130-450) 10^3/uL MPV (7.4-11.4) fL Neut # (Auto) (1.5-6.6) 10^3/uL Lymph # (Auto) (1.5-3.5) 10^3/uL [place] # (Auto) (0.0-1.0) 10^3/uL Eos # (Auto) (0.0-0.7) 10^3/uL Baso # (Auto) (0.0-0.1) 10^3/uL Absolute Nucleated RBC x10^3/uL Nucleated RBC % /100WBC Bld Gas Analysis Time Sample Site ABG pH (7.35-7.45) ABG pCO2 (34-45) mmHg ABG pO2 (80-100) mmHg ABG HCO3 (22.0-26.0) mmol/L ABG Total CO2 (21.0-29.0) MMOL/L ABG O2 Saturation (94-98) % ABG Base Excess (-2.0-3.0) mmol/L Doron Test VBG pH (7.31-7.41) VBG pCO2 (41-51) mmHg VBG pO2 (25-47) mmHg VBG HCO3 (23-28) mmol/L VBG Total CO2 (24-29) mmol/L VBG O2 Saturation (60-80) % VBG Base Excess (-2 - +2) mmol/L Ionized Calcium (1.15-1.33) mmol/L O2 Delivery Device O2 Liters/Min LPM Sodium (135-145) mmol/L Potassium (3.5-5.0) mmol/L Chloride (101-111) mmol/L Carbon Dioxide (21-32) mmol/L Anion Gap (6-13) BUN (6-20) mg/dL Creatinine (0.6-1.2) mg/dL Estimated GFR (MDRD) (>89) Glucose (70-100) mg/dL POC Whole Bld Glucose 190 H (70 - 100) mg/dL Calcium (8.5-10.3) mg/dL Phosphorus (2.5-4.6) mg/dL Magnesium (1.7-2.8) mg/dL Assessment/Plan - Problem List (1) Acute respiratory failure with hypoxia Impression: Cause appears to be multifactorial: from COPD exacerbation and exacerbation of diastolic heart failure and from pleural effusion (but that was tapped and drained 09/11). On 09/12, he got severely short of breath as the day went on, Ativan was given once for his description of "anxiety". This did not help much. ABG was done that showed pO2 of 73 with saturation of 95%, and pH 7.32, PCO2 39. But later that day, he was guppy breathing and exhaling with pursed lips. CXR showed mild re-accumulation of fluid. We obtained Duplex US of swollen L arm and it did R/O a DVT. He was started on empiric therapeutic Lovenox for treating a poss PE however. Because of persistent resp distress with tachypneic and pursed lip breathing, BIPAP was restarted and he was moved to ICU. We stopped Lovenox and resumed Eliquis on 09/13. His dose has been lowered due to renal failure Plan: Remain in ICU Continue BIPAP nightly to allow his resp muscles to rest, target sats are 88% or above. Continue to treat the underlying problems. We have discussed his need to stop smoking. He will need an oximetry walk test on the day of discharge to see what setting of new home oxygen. He said he would accept using home O2. 2. COPD with acute exacerbation Probably due to viral infection: he is rhinovirus (+). He was very wheezy since admission until today. The pleural fluid culture final result was neg. We started empiric antibx on 09/13, using Cefepime IV to cover Pseudomonas and since he had frequent exacerbations, not Zithromax and Ceftriaxone, because the Zithromax plus being on Flecainide would give him high risk of prolonged QT. Quitting smoking was discussed with him when daughter was on phone, on 09/12. Using suppl O2 since admission and BiPAP nightly has significantly improved his weakness of respiratory muscles and feeling of air hunger. Plan: Continue Nebulized DuoNeb treatment on a fixed schedule, and will add Duoneb as needed q4h. Cont inhaled budesonide Continue Solumedrol 80 iv tid Continue empiric Cefepime 2 g IV 3 times daily to cover Pseudomonas and since he has frequent exacerbations. Continue supplemental O2 including BiPAP every night, with target sats 88% minimum. We will start PT and OT evaluation tomorrow since his lungs are finally clear today. I think he is a candidate for a Trilogy machine, and will discuss with RT. 3. Recurrent pleural effusion. Thoracentesis by ultrasound guidance for diagnostic tap was done 09/11>> post- tap the CXR revealed no residual effusion, but the 09/12 CXR showed small recurrence. His risks for cancer are smoking & was exposed to agent orange. CT did not show a lung cancer and has been stable since October of this year. The pleural effusion could be from congestive heart failure or CKD, since the specimen is a transudate. The final cultures come back and is growing nothing. Cytology only shows "inflammatory cells". There are no malignant cells seen. He also had unilateral arm swelling of L arm. We obtained Duplex US of swollen L arm and it did R/O a DVT. Plan: We resumed Eliquis bid on09/13, since a repeat thoracentesis was not needed. I told the patient, and the coby Farris on the phone during my visit, the results of it showing no malignancy and other findings. 4. L arm swelling He reported that L arm swelling started approximately a week before this admission. DVT was ruled out during this admission, with a duplex ultrasound. I felt it was from him constantly sleeping on his left shoulder and compressing venous return and lymphatic flow. Even after he changed position, the left arm has been swollen compared to the R. Yesterday the L arm started weeping through blisters of the lower arms through several skin tears. The nurse is wrapping it where it is started weeping. It is leaking serous fluid. Once the leaking began, the rest of the upper arm is no longer swollen today. Plan: I suspect that he has some abnormal anatomy in the left axillary area that prevents lymphatic drainage. Continue with absorbtive pads for his serous drainage. Will start dressing the wounds, at the skin tears, with antibacterial ointments and continue dressing changes to absorb the liquid. 5. DM He took Glipizide at home, and may have been about to change to Trulicity, per the daughter telling his RN. His A1c now is 8.8, indicating fair but not optimal glu control. I expected that his glucose levels will be elevated while he is on Solumedrol, they have been 200-300. Plan: We resumed Glipizide bid We ordered a DM diet We ordered Hypoglycemia protocol, sliding scale insulin coverage and fingerstick checks before meals and at bedtime. Will increase nutrition time Insulin from 5U to 7U. We are also increasing Lantus 10U bid>> 15 U bid. 6 Acute on chronic kidney insufficiency This gentleman's baseline creatinine appears to be about 1.2. It was over 2 and that is why his Lasix was discontinued. Now he is over 3 even before he received Lasix. His weight is significantly increased from last month. Renal ultrasound was done to make sure there is no hydronephrosis or obstruction>> no hydronephrosis or obstruction but he has a large post-void residual of 450 cc in bladder. Creats here have been 3.1>> 3.2>> 3.4>> 3.1>> 3.2>> 3.1 today. This may be his new chronic creat level and he may be in CKD Stage IV now. Plan: Avoid nephrotoxins We are not giving iv hydration, just his oral liquid intake. Follow BMP daily He needs to see his Switch House Operator soon after DCh and possibly also Urology. 7. Diastolic heart failure, acute. On physical exam he had pedal edema at admission, which has resolved. His lung exam has rhonchi and wheezing, c/w viral infection. He had no JVP elevation. BNP is not severely elevated at 353. But weight was reportedly significantly increased An Echocardiogram was done 09/11 and showed normal LVEF, therefore this is diastolic dysfunction, from RV overload that is compressing the LV 8. HTN BP was as high as 180's/100 Plan: BP meds begun. 9. Cor pulmonale This was seen on Echo: The RV is dilated and is compressing the LV. His Cor Pulmonale is likely from his significant COPD. He will be very fluid and diuretic sensitive. 10. Tobacco use He used to smoke a lot but reports that in the 2 days before this admission he was down to 3 cigarettes/day. He also admitted that since admission, he has had no urge for cigarette Plan: Will not order a nicotine patch if he has no urge and he does not want it. The daughter on phone call 09/11, and I both reiterated the importance of stopping smoking given his COPD and PVD history. 11. History of gastritis He had a history of duodenitis, esophagitis and Iron deficiency anemia. He was just seen September 07 and had EGD with Dr. Franklin. The surg report said: Mild gastritis. The pathology report was neg for malignancy or H pylori. Hemoglobin has been acceptable. He was off anticoagulants and anti-plt agents due to the GI bleed Hx. Today he complained of "reflux acid". Tums as needed was ordered and did not help much. Plan: We have resumed Eliquis on 09/13 but not the anti-plt agent Continue proton pump inhibitor Continue TUMS prn and Sucralfate achs prn acid reflux 12. History of atrial fibrillation. Hx of GI bleed is why he was not on anticoagulation recently. He takes Tambocor 50 mg every 12 hours and Carvedilol 12.5 mg twice daily. Plan: We resumed these meds and resumed Eliquis on 09/13. The patient reported he is scheduled to get a Watchman device implanted on October 19, 2022 Since Carvedilol is not a beta-1 selective beta-remington, it would be much better for this COPD-er to be on Metoprolol, which is purely B-1 remington. I made the change to Toprol and stopped Carvedilol, and will Dch on that . PVD His daughter Kaleigh, in our conversation by phone in his room on 09/12, happened to mention that this pt has vascular disease, had right-sided carotid endarterectomy and has a vascular specialist who follows him. The daughter did not know if there were any blockages of the left arm that may explain his unilateral left arm swelling Plan: We resumed the Eliquis, not the antiplt agents Will continue with statin if he is on that and he needs to be at target LDL less than 70 The daughter and I both reiterated to the pt, during that phone call, the need for him to stop smoking.
[2022-09-15] MEDS ORDERED: BENZOCAINE/MENTHOL LOZENGE MM PRN (18:11)
[2022-09-15] MEDS: CEFEPIME 2 GM in SODIUM CHLORIDE 0.9% MINIBAG 100 ML IV SCH (18:48)
[2022-09-15] MEDS: ATORVASTATIN 40 MG TABLET PO SCH (20:29)
[2022-09-15] MEDS: MONTELUKAST 10 MG TABLET PO SCH (20:30)
[2022-09-16] MEDS: SENNA 8.6 MG TABLET PO SCH ×2 (01:05→08:59)
[2022-09-16 05:56] LABS: HCT - HEMATOCRIT 32.5 % (42.0-52.0); HGB - HEMOGLOBIN 11.2 g/dL (14.0-18.0); LYMPHOCYTES # (AUTO) 0.4 10^3/uL (1.5-3.5); MEAN CORPUSCULAR HEMOGLOBIN 30.9 pg (27.0-31.0); MEAN CORPUSCULAR HGB CONC 34.5 g/dL (32.0-36.0); MEAN CORPUSCULAR VOLUME 89.5 fL (80.0-94.0); MEAN PLATELET VOLUME 10.2 fL (7.4-11.4); MONOCYTES # (AUTO) 0.3 10^3/uL (0.0-1.0); MONOCYTES % (AUTO) 3.4 %; NEUTROPHILS # (AUTO) 8.2 10^3/uL (1.5-6.6); NEUTROPHILS % (AUTO) 91.8 %; PLT - PLATELET COUNT 122 10^3/uL (130-450); RED BLOOD COUNT 3.63 10^6/uL (4.70-6.10); RED CELL DISTRIBUTION WIDTH 13.4 % (12.0-15.0); WHITE BLOOD COUNT 8.9 x10^3/uL (4.8-10.8)
[2022-09-16 06:04] LABS: CALCIUM, IONIZED 1.25 mmol/L (1.15-1.33); VBG PH 7.282 (7.31-7.41)
[2022-09-16 06:12] LABS: CALCIUM 8.3 mg/dL (8.5-10.3); MAGNESIUM 2.2 mg/dL (1.7-2.8); PHOSPHORUS 4.6 mg/dL (2.5-4.6); POTASSIUM 4.7 mmol/L (3.5-5.0)
[2022-09-16] MEDS: IPRATROPIUM/ALBUTEROL 3 ML NEB INH SCH ×4 (06:15→17:57)
[2022-09-16] MEDS: BUDESONIDE 0.5 MG/2 ML NEB INH SCH ×2 (06:15→17:57)
[2022-09-16] MEDS: methylPREDNISolone SUCCINATE 40 MG/ML VIAL IVP SCH ×3 (06:24→22:00)
[2022-09-16] MEDS: SODIUM CHLORIDE FLUSH 0.9% 10 ML SYRINGE IVP PRN (06:24)
[2022-09-16] MEDS: hydrALAZINE 10 MG TABLET PO SCH ×3 (06:24→22:00)
--- NOTE | 2022-09-16 07:45 | PROVIDER PROGRESS NOTE ---
Subjective - Subjective Pt reports feeling: Improved (Wore BiPAP at night, switched over to nasal cannula at about 0600, feels better overall. Since yesterday and today, he feels like food is getting stuck in upper esophagus when swallows.) Objective - Vital Signs/Intake & Output Vital Signs: Vital Signs Temp Pulse Pulse Resp BP Pulse Ox O2 Flow Rate 09/16/22 07:00 36.5 C 60 22 114/49 L 96 2 09/16/22 06:15 60 16 2 09/16/22 05:00 2 Intake & Output: Intake & Output 09/13/22 09/14/22 09/15/22 09/16/22 23:59 23:59 23:59 23:59 Intake Total 1450 1065 1650 100 Output Total 1150 910 150 100 Balance 680 330 2577 0 - Objective General Appearance: positive: No acute distress, Other (Tripod breathing) Eyes Bilateral: positive: Normal inspection. negative: Other (wearing O2 per n.c.) ENT: positive: ENT inspection nml, No signs of dehydration Neck: positive: Nml inspection, No JVD Respiratory: positive: Wheezes (scattered wheezes, bikateral upper lung lozano posteriorly) Cardiovascular: positive: No murmur Abdomen: positive: Non-tender, No distention Skin: positive: Warm, Dry Extremities: positive: Non-tender, No pedal edema Neurologic/Psychiatric: positive: Oriented x3, Motor nml - Lab Results Fish Bones: 09/16/22 05:45 09/16/22 05:45 Other Labs: Lab Results x24hrs 09/16/22 09/16/22 09/16/22 Range/Units 07:32 05:45 05:45 WBC (4.8-10.8) x10^3/uL RBC (4.70-6.10) 10^6/uL Hgb (14.0-18.0) g/dL Hct (42.0-52.0) % MCV (80.0-94.0) fL MCH (27.0-31.0) pg MCHC (32.0-36.0) g/dL RDW (12.0-15.0) % Plt Count (130-450) 10^3/uL MPV (7.4-11.4) fL Neut # (Auto) (1.5-6.6) 10^3/uL Lymph # (Auto) (1.5-3.5) 10^3/uL Elk # (Auto) (0.0-1.0) 10^3/uL Eos # (Auto) (0.0-0.7) 10^3/uL Baso # (Auto) (0.0-0.1) 10^3/uL Absolute Nucleated RBC x10^3/uL Nucleated RBC % /100WBC Bld Gas Analysis Time Sample Site ABG pH (7.35-7.45) ABG pCO2 (34-45) mmHg ABG pO2 (80-100) mmHg ABG HCO3 (22.0-26.0) mmol/L ABG Total CO2 (21.0-29.0) MMOL/L ABG O2 Saturation (94-98) % ABG Base Excess (-2.0-3.0) mmol/L Doron Test VBG pH 7.282 L (7.31-7.41) VBG pCO2 (41-51) mmHg VBG pO2 (25-47) mmHg VBG HCO3 (23-28) mmol/L VBG Total CO2 (24-29) mmol/L VBG O2 Saturation (60-80) % VBG Base Excess (-2 - +2) mmol/L Ionized Calcium 1.25 (1.15-1.33) mmol/L O2 Delivery Device O2 Liters/Min LPM Sodium 128 L (135-145) mmol/L Potassium 4.7 (3.5-5.0) mmol/L Chloride 98 L (101-111) mmol/L Carbon Dioxide 23 (21-32) mmol/L Anion Gap 7.0 (6-13) BUN 81 H* (6-20) mg/dL Creatinine 3.0 H (0.6-1.2) mg/dL Estimated GFR (MDRD) 21 L (>89) Glucose 128 H (70-100) mg/dL POC Whole Bld Glucose 126 H (70 - 100) mg/dL Calcium 8.3 L (8.5-10.3) mg/dL Phosphorus 4.6 (2.5-4.6) mg/dL Magnesium 2.2 (1.7-2.8) mg/dL 09/16/22 09/15/22 09/15/22 Range/Units 05:45 20:22 16:59 WBC 8.9 (4.8-10.8) x10^3/uL RBC 3.63 L (4.70-6.10) 10^6/uL Hgb 11.2 L (14.0-18.0) g/dL Hct 32.5 L (42.0-52.0) % MCV 89.5 (80.0-94.0) fL MCH 30.9 (27.0-31.0) pg MCHC 34.5 (32.0-36.0) g/dL RDW 13.4 (12.0-15.0) % Plt Count 122 L (130-450) 10^3/uL MPV 10.2 (7.4-11.4) fL Neut # (Auto) 8.2 H (1.5-6.6) 10^3/uL Lymph # (Auto) 0.4 L (1.5-3.5) 10^3/uL Elk # (Auto) 0.3 (0.0-1.0) 10^3/uL Eos # (Auto) 0.0 (0.0-0.7) 10^3/uL Baso # (Auto) 0.0 (0.0-0.1) 10^3/uL Absolute Nucleated RBC 0.00 x10^3/uL Nucleated RBC % 0.0 /100WBC Bld Gas Analysis Time Sample Site ABG pH (7.35-7.45) ABG pCO2 (34-45) mmHg ABG pO2 (80-100) mmHg ABG HCO3 (22.0-26.0) mmol/L ABG Total CO2 (21.0-29.0) MMOL/L ABG O2 Saturation (94-98) % ABG Base Excess (-2.0-3.0) mmol/L Doron Test VBG pH (7.31-7.41) VBG pCO2 (41-51) mmHg VBG pO2 (25-47) mmHg VBG HCO3 (23-28) mmol/L VBG Total CO2 (24-29) mmol/L VBG O2 Saturation (60-80) % VBG Base Excess (-2 - +2) mmol/L Ionized Calcium (1.15-1.33) mmol/L O2 Delivery Device O2 Liters/Min LPM Sodium (135-145) mmol/L Potassium (3.5-5.0) mmol/L Chloride (101-111) mmol/L Carbon Dioxide (21-32) mmol/L Anion Gap (6-13) BUN (6-20) mg/dL Creatinine (0.6-1.2) mg/dL Estimated GFR (MDRD) (>89) Glucose (70-100) mg/dL POC Whole Bld Glucose 199 H 234 H (70 - 100) mg/dL Calcium (8.5-10.3) mg/dL Phosphorus (2.5-4.6) mg/dL Magnesium (1.7-2.8) mg/dL 09/15/22 09/15/22 09/15/22 Range/Units 11:45 10:05 08:00 WBC (4.8-10.8) x10^3/uL RBC (4.70-6.10) 10^6/uL Hgb (14.0-18.0) g/dL Hct (42.0-52.0) % MCV (80.0-94.0) fL MCH (27.0-31.0) pg MCHC (32.0-36.0) g/dL RDW (12.0-15.0) % Plt Count (130-450) 10^3/uL MPV (7.4-11.4) fL Neut # (Auto) (1.5-6.6) 10^3/uL Lymph # (Auto) (1.5-3.5) 10^3/uL Elk # (Auto) (0.0-1.0) 10^3/uL Eos # (Auto) (0.0-0.7) 10^3/uL Baso # (Auto) (0.0-0.1) 10^3/uL Absolute Nucleated RBC x10^3/uL Nucleated RBC % /100WBC Bld Gas Analysis Time 1005 Sample Site RIGHT BRACHIAL ABG pH 7.32 L (7.35-7.45) ABG pCO2 43 (34-45) mmHg ABG pO2 77 L (80-100) mmHg ABG HCO3 21.7 L (22.0-26.0) mmol/L ABG Total CO2 23.0 (21.0-29.0) MMOL/L ABG O2 Saturation 95 (94-98) % ABG Base Excess -4.3 L (-2.0-3.0) mmol/L Doron Test POSITIVE VBG pH 7.281 L (7.31-7.41) VBG pCO2 51.3 H (41-51) mmHg VBG pO2 32.2 (25-47) mmHg VBG HCO3 23.6 (23-28) mmol/L VBG Total CO2 25.2 (24-29) mmol/L VBG O2 Saturation 58.2 L (60-80) % VBG Base Excess -3.4 L (-2 - +2) mmol/L Ionized Calcium (1.15-1.33) mmol/L O2 Delivery Device NASAL CANNULA O2 Liters/Min 2.00 LPM Sodium (135-145) mmol/L Potassium (3.5-5.0) mmol/L Chloride (101-111) mmol/L Carbon Dioxide (21-32) mmol/L Anion Gap (6-13) BUN (6-20) mg/dL Creatinine (0.6-1.2) mg/dL Estimated GFR (MDRD) (>89) Glucose (70-100) mg/dL POC Whole Bld Glucose 330 H (70 - 100) mg/dL Calcium (8.5-10.3) mg/dL Phosphorus (2.5-4.6) mg/dL Magnesium (1.7-2.8) mg/dL 09/15/22 Range/Units 07:43 WBC (4.8-10.8) x10^3/uL RBC (4.70-6.10) 10^6/uL Hgb (14.0-18.0) g/dL Hct (42.0-52.0) % MCV (80.0-94.0) fL MCH (27.0-31.0) pg MCHC (32.0-36.0) g/dL RDW (12.0-15.0) % Plt Count (130-450) 10^3/uL MPV (7.4-11.4) fL Neut # (Auto) (1.5-6.6) 10^3/uL Lymph # (Auto) (1.5-3.5) 10^3/uL Elk # (Auto) (0.0-1.0) 10^3/uL Eos # (Auto) (0.0-0.7) 10^3/uL Baso # (Auto) (0.0-0.1) 10^3/uL Absolute Nucleated RBC x10^3/uL Nucleated RBC % /100WBC Bld Gas Analysis Time Sample Site ABG pH (7.35-7.45) ABG pCO2 (34-45) mmHg ABG pO2 (80-100) mmHg ABG HCO3 (22.0-26.0) mmol/L ABG Total CO2 (21.0-29.0) MMOL/L ABG O2 Saturation (94-98) % ABG Base Excess (-2.0-3.0) mmol/L Dorno Test VBG pH (7.31-7.41) VBG pCO2 (41-51) mmHg VBG pO2 (25-47) mmHg VBG HCO3 (23-28) mmol/L VBG Total CO2 (24-29) mmol/L VBG O2 Saturation (60-80) % VBG Base Excess (-2 - +2) mmol/L Ionized Calcium (1.15-1.33) mmol/L O2 Delivery Device O2 Liters/Min LPM Sodium (135-145) mmol/L Potassium (3.5-5.0) mmol/L Chloride (101-111) mmol/L Carbon Dioxide (21-32) mmol/L Anion Gap (6-13) BUN (6-20) mg/dL Creatinine (0.6-1.2) mg/dL Estimated GFR (MDRD) (>89) Glucose (70-100) mg/dL POC Whole Bld Glucose 202 H (70 - 100) mg/dL Calcium (8.5-10.3) mg/dL Phosphorus (2.5-4.6) mg/dL Magnesium (1.7-2.8) mg/dL Assessment/Plan - Problem List (1) Acute respiratory failure with hypoxia Impression: Cause appears to be multifactorial: from COPD exacerbation and exacerbation of diastolic heart failure and from pleural effusion (but that was tapped and drained 09/11). On 09/12, he got severely short of breath as the day went on, and he was guppy breathing and exhaling with pursed lips. CXR showed mild re-accumulation of fluid. We obtained Duplex US of swollen L arm and it did R/O a DVT. He was started on empiric therapeutic Lovenox for treating a poss PE however. Because of persistent resp distress with tachypneic and pursed lip breathing, BIPAP was (re)started and he was moved to ICU. We stopped Lovenox and resumed Eliquis on 09/13. His dose has been lowered due to renal failure Plan: Remain in ICU Continue BIPAP nightly to allow his resp muscles to rest, suppl O2 daytime with target sats are 88% or above. Continue to treat the underlying problems. We have discussed his need to stop smoking. He will need an oximetry walk test on the day of discharge to see what setting of new home oxygen. He said he would accept using home O2. 2. COPD with acute exacerbation Probably this one is due to viral infection: he is rhinovirus (+). He was very wheezy since admission until 09/15. We started empiric antibx on 09/13, using Cefepime IV to cover Pseudomonas and since he had frequent exacerbations, not Zithromax and Ceftriaxone, because the Zithromax plus being on Flecainide would give him high risk of prolonged QT. Quitting smoking was discussed with him when daughter was on phone, on 09/12. Using suppl O2 since admission and BiPAP nightly has significantly improved his weakness of respiratory muscles and feeling of air hunger. Plan: Continue Nebulized DuoNeb treatment on a fixed schedule, and will add Duoneb as needed q4h. Cont inhaled budesonide Continue Solumedrol, will decrease now from 80 iv tid to 40 iv tid Continue empiric Cefepime 2 g IV 3 times daily to cover Pseudomonas and since he has frequent exacerbations. Plan a 7day course then stop. Continue supplemental O2 including BiPAP every night, with target sats 88% minimum. We will start PT and OT evaluation since his lungs are finally clear I think he is a candidate for a Trilogy machine, and will discuss with RT. 3. Acute on chronic kidney insufficiency This gentleman's baseline creatinine appears to be about 1.2. It was over 2 and that is why his Lasix was discontinued. Now he is over 3 even before he received Lasix. His weight is significantly increased from last month. Renal ultrasound was done to make sure there is no hydronephrosis or obstruction>> no hydronephrosis or obstruction but he has a large post-void residual of 450 cc in bladder. Creats here have been 3.1>> 3.2>> 3.4>> 3.1>> 3.2>> 3.1>> 3.0 today. This may be his new chronic creat level and he may be in CKD Stage IV now. Plan: Avoid nephrotoxins Will give iv hydration slowly, 2L of NS over 2 days. Follow BMP daily He needs to see his Section Cutter soon after DCh and possibly also Urology. 4. Hyponatremia Na is 128, and has remington declining slowly. This appears to be hypovolemic hyponatremia since it parallels his rise of BUN/creatinine ratio. He has not been on diuretics for many days, however his oral intake has been poor Plan: Give IV saline slowly, 2 bags total over 2 days 5. L arm swelling He reported that L arm swelling started approximately a week before this admission. DVT was ruled out during this admission, with a duplex ultrasound. I felt it was from him constantly sleeping on his left shoulder and compressing venous return and lymphatic flow. Even after he changed position, the left arm has been swollen compared to the R. Yesterday the L arm started weeping through blisters of the lower arms through several skin tears. The nurse is wrapping it where it is started weeping. It is leaking serous fluid. Once the leaking began, the rest of the upper arm is no longer swollen today. Plan: I suspect that he has some abnormal anatomy in the left axillary area that prevents lymphatic drainage. Continue with absorbtive pads for his serous drainage. Will start dressing the wounds, at the skin tears, with antibacterial ointments and continue dressing changes to absorb the liquid. 6. DM He took Glipizide at home, and may have been about to change to Trulicity, per the daughter telling his RN. His A1c now is 8.8, indicating fair but not optimal glu control. I expected that his glucose levels will be elevated while he is on Solumedrol, they have been 200-300. Plan: We resumed Glipizide bid We ordered a DM diet We ordered Hypoglycemia protocol, sliding scale insulin coverage and fingerstick checks before meals and at bedtime. We increased nutrition time Insulin from 5U to 7U. We also increased Lantus 10U bid>> 15 U bid. 7. Recurrent pleural effusion. Thoracentesis by ultrasound guidance for diagnostic tap was done 09/11>> post- tap the CXR revealed no residual effusion, but the 09/12 CXR showed small recurrence. His risks for cancer are smoking & was exposed to agent orange. CT did not show a lung cancer and has been stable since October of this year. The pleural effusion could be from congestive heart failure or CKD, since the specimen is a transudate. The final cultures come back and is growing nothing. Cytology only shows "inflammatory cells". There are no malignant cells seen. He also had unilateral arm swelling of L arm. We obtained Duplex US of swollen L arm and it did R/O a DVT. Plan: We resumed Eliquis bid on 09/13, since a repeat thoracentesis was not needed. I told the patient, and the daughter Kaleigh on the phone yesterday, about the results of it showing no malignancy and other findings. 8. Diastolic heart failure, acute. Improved. On physical exam he had pedal edema at admission, which has resolved. His lung exam has rhonchi and wheezing, c/w viral infection. He had no JVP elevation. BNP is not severely elevated at 353. But weight was reportedly significantly increased An Echocardiogram was done 09/11 and showed normal LVEF, therefore this is diastolic dysfunction, from RV overload that is compressing the LV 9. HTN BP was as high as 180's/100 Plan: BP meds begun. 10. Cor pulmonale This was seen on Echo: The RV is dilated and is compressing the LV. His Cor Pulmonale is likely from his significant COPD. He will be very fluid and diuretic sensitive. 11. Tobacco use He used to smoke a lot but reports that in the 2 days before this admission he was down to 3 cigarettes/day. He also admitted that since admission, he has had no urge for cigarette Plan: Will not order a nicotine patch if he has no urge and he does not want it. The daughter on phone call 09/11, and I both reiterated the importance of stopping smoking given his COPD and PVD history. 12. History of gastritis He had a history of duodenitis, esophagitis and Iron deficiency anemia. He was just seen September 07 and had EGD with Dr. Franklin. The surg report said: Mild gastritis. The pathology report was neg for malignancy or H pylori. Hemoglobin has been acceptable. He was off anticoagulants and anti-plt agents due to the GI bleed Hx. Today he complained of "reflux acid". Tums as needed was ordered and did not help much. Plan: We have resumed Eliquis on 09/13 but not the anti-plt agent Continue proton pump inhibitor Continue TUMS prn and Sucralfate achs prn acid reflux 13. History of atrial fibrillation. Hx of GI bleed is why he was not on anticoagulation recently. He takes Tambocor 50 mg every 12 hours and Carvedilol 12.5 mg twice daily. Plan: We resumed these meds and resumed Eliquis on 09/13. The patient reported he is scheduled to get a Watchman device implanted on October 19, 2022 Since Carvedilol is not a beta-1 selective beta-remington, it would be much better for this COPD-er to be on Metoprolol, which is purely B-1 remington. I made the change to Toprol and stopped Carvedilol, and will Dch on that . PVD His daughter Kaleigh, in our conversation by phone in his room on 09/12, happened to mention that this pt has vascular disease, had right-sided carotid endarterectomy and has a vascular specialist who follows him. The daughter did not know if there were any blockages of the left arm that may explain his unilateral left arm swelling Plan: We resumed the Eliquis, not the antiplt agents Will continue with statin if he is on that and he needs to be at target LDL less than 70 The daughter and I both reiterated to the pt, during that phone call, the need for him to stop smoking.
[2022-09-16] MEDS: CALCIUM CARBONATE CHEW 500 MG TABLET PO SCH ×2 (08:58→20:49)
[2022-09-16] MEDS: SERTRALINE 50 MG TABLET PO SCH (08:58)
[2022-09-16] MEDS: CYANOCOBALAMIN 500 MCG TABLET PO SCH (08:58)
[2022-09-16] MEDS: polyethylene glycoL 3350 17 GM PACKET PO SCH (08:58)
[2022-09-16] MEDS: PANTOPRAZOLE 40 MG TABLET PO SCH (08:59)
[2022-09-16] MEDS: guaiFENesin 600 MG TABLET PO SCH ×2 (08:59→20:50)
[2022-09-16] MEDS: FLECAINIDE 50 MG TABLET PO SCH ×2 (08:59→20:50)
[2022-09-16] MEDS: TAMSULOSIN 0.4 MG CAPSULE PO SCH (08:59)
[2022-09-16] MEDS: glipiZIDE 5 MG TABLET PO SCH ×2 (08:59→20:50)
[2022-09-16] MEDS: METOPROLOL SUCCINATE 25 MG TABLET PO SCH ×2 (08:59→20:49)
[2022-09-16] MEDS: FOLIC ACID 1 MG TABLET PO SCH (09:00)
[2022-09-16] MEDS: CHOLECALCIFEROL 25 MCG TABLET PO SCH (09:00)
[2022-09-16] MEDS: APIXABAN 5 MG TABLET PO SCH ×2 (09:00→20:50)
[2022-09-16] MEDS: DOCUSATE SODIUM 250 MG CAPSULE PO SCH (09:00)
[2022-09-16] MEDS: MULTIVITAMIN W/MINERALS TABLET PO SCH (09:00)
[2022-09-16] MEDS: INSULIN LISPRO 300 UNIT/3 ML PEN SUBQ SCH ×4 (09:12→20:51)
[2022-09-16] MEDS: FERROUS SULFATE 325 MG TABLET PO SCH (09:12)
[2022-09-16] MEDS: INSULIN GLARGINE-YFGN 300 UNIT/3 ML PEN SUBQ SCH (09:13)
[2022-09-16] MEDS: SODIUM CHLORIDE 0.9% 1,000 ML IV SCH (09:52)
[2022-09-16] MEDS: SODIUM CHLORIDE FLUSH 0.9% 10 ML SYRINGE IVP SCH ×3 (09:53→22:00)
[2022-09-16] MEDS: PUMP NAS SCH ×2 (09:54→22:00)
[2022-09-16] MEDS: AZELASTINE HCL 137 MCG/0.137 ML NAS SCH ×2 (09:54→22:00)
[2022-09-16] MEDS ORDERED: BISACODYL 10 MG SUPP PR ONE (15:15)
[2022-09-16] MEDS ORDERED: MAGNESIUM HYDROXIDE 2,400 MG/30 ML UDC PO ONE (18:03)
[2022-09-16] MEDS: CEFEPIME 2 GM in SODIUM CHLORIDE 0.9% MINIBAG 100 ML IV SCH (19:32)
[2022-09-16] MEDS: MONTELUKAST 10 MG TABLET PO SCH (20:50)
[2022-09-16] MEDS: ATORVASTATIN 40 MG TABLET PO SCH (20:50)
[2022-09-17 04:33] LABS: CALCIUM, IONIZED 1.11 mmol/L (1.15-1.33); VBG PH 7.317 (7.31-7.41)
[2022-09-17 04:48] LABS: CALCIUM 8.6 mg/dL (8.5-10.3); CREATININE 3.2 mg/dL (0.6-1.2); MAGNESIUM 2.4 mg/dL (1.7-2.8); PHOSPHORUS 4.5 mg/dL (2.5-4.6); POTASSIUM 4.4 mmol/L (3.5-5.0)
[2022-09-17] MEDS: hydrALAZINE 10 MG TABLET PO SCH ×3 (05:58→22:20)
[2022-09-17] MEDS: SODIUM CHLORIDE 0.9% 1,000 ML IV SCH (05:58)
[2022-09-17] MEDS: methylPREDNISolone SUCCINATE 40 MG/ML VIAL IVP SCH ×3 (05:58→22:20)
[2022-09-17] MEDS: SODIUM CHLORIDE FLUSH 0.9% 10 ML SYRINGE IVP PRN (05:58)
[2022-09-17] MEDS: BUDESONIDE 0.5 MG/2 ML NEB INH SCH ×2 (06:22→21:00)
[2022-09-17] MEDS: IPRATROPIUM/ALBUTEROL 3 ML NEB INH SCH ×4 (06:22→21:00)
[2022-09-17 07:33] LABS: BASOPHILS % (AUTO) 0.1 %; EOSINOPHILS % (AUTO) 0.3 %; HCT - HEMATOCRIT 35.9 % (42.0-52.0); HGB - HEMOGLOBIN 11.9 g/dL (14.0-18.0); LYMPHOCYTES # (AUTO) 0.9 10^3/uL (1.5-3.5); LYMPHOCYTES % (AUTO) 7.7 %; MEAN CORPUSCULAR HEMOGLOBIN 30.4 pg (27.0-31.0); MEAN CORPUSCULAR HGB CONC 33.1 g/dL (32.0-36.0); MEAN CORPUSCULAR VOLUME 91.8 fL (80.0-94.0); MEAN PLATELET VOLUME 10.1 fL (7.4-11.4); MONOCYTES # (AUTO) 1.2 10^3/uL (0.0-1.0); MONOCYTES % (AUTO) 10.3 %; NEUTROPHILS # (AUTO) 9.5 10^3/uL (1.5-6.6); NEUTROPHILS % (AUTO) 81.3 %; PLT - PLATELET COUNT 144 10^3/uL (130-450); RED BLOOD COUNT 3.91 10^6/uL (4.70-6.10); RED CELL DISTRIBUTION WIDTH 13.4 % (12.0-15.0); WHITE BLOOD COUNT 11.7 x10^3/uL (4.8-10.8)
[2022-09-17] MEDS: SERTRALINE 50 MG TABLET PO SCH (08:04)
[2022-09-17] MEDS: CYANOCOBALAMIN 500 MCG TABLET PO SCH (08:04)
[2022-09-17] MEDS: guaiFENesin 600 MG TABLET PO SCH ×2 (08:04→21:27)
[2022-09-17] MEDS: DOCUSATE SODIUM 250 MG CAPSULE PO SCH (08:05)
[2022-09-17] MEDS: MULTIVITAMIN W/MINERALS TABLET PO SCH (08:05)
[2022-09-17] MEDS: FLECAINIDE 50 MG TABLET PO SCH ×2 (08:05→21:26)
[2022-09-17] MEDS: CHOLECALCIFEROL 25 MCG TABLET PO SCH (08:05)
[2022-09-17] MEDS: CALCIUM CARBONATE CHEW 500 MG TABLET PO SCH ×2 (08:05→21:25)
[2022-09-17] MEDS: PANTOPRAZOLE 40 MG TABLET PO SCH (08:05)
[2022-09-17] MEDS: APIXABAN 5 MG TABLET PO SCH ×2 (08:05→21:25)
[2022-09-17] MEDS: FOLIC ACID 1 MG TABLET PO SCH (08:05)
[2022-09-17] MEDS: SODIUM CHLORIDE FLUSH 0.9% 10 ML SYRINGE IVP SCH ×2 (08:06→17:58)
[2022-09-17] MEDS: FERROUS SULFATE 325 MG TABLET PO SCH (08:06)
[2022-09-17] MEDS: METOPROLOL SUCCINATE 25 MG TABLET PO SCH ×2 (08:06→21:21)
[2022-09-17] MEDS: polyethylene glycoL 3350 17 GM PACKET PO SCH (08:06)
[2022-09-17] MEDS: TAMSULOSIN 0.4 MG CAPSULE PO SCH (08:06)
[2022-09-17] MEDS: INSULIN GLARGINE-YFGN 300 UNIT/3 ML PEN SUBQ SCH (08:44)
[2022-09-17] MEDS: INSULIN LISPRO 300 UNIT/3 ML PEN SUBQ SCH ×4 (08:45→21:31)
[2022-09-17] MEDS: glipiZIDE 5 MG TABLET PO SCH ×2 (08:45→21:27)
[2022-09-17] MEDS: AZELASTINE HCL 137 MCG/0.137 ML NAS SCH ×2 (08:45→21:22)
[2022-09-17] MEDS: PUMP NAS SCH ×2 (08:45→21:22)
[2022-09-17] MEDS: FLUTICASONE NASAL SPRAY NAS SCH ×2 (13:58→21:26)
--- NOTE | 2022-09-17 17:12 | PROVIDER PROGRESS NOTE ---
Subjective - Subjective Subjective: Has a very stuffed up nose, he has not been on his azelastine since being here, which we do not have on formulary and he is asking for nasal spray. Objective - Vital Signs/Intake & Output Vital Signs: Vital Signs Pulse Pulse Resp BP Pulse Ox 09/17/22 16:34 93 09/17/22 16:00 61 19 115/70 09/17/22 15:19 62 18 Intake & Output: Intake & Output 09/14/22 09/15/22 09/16/22 09/17/22 23:59 23:59 23:59 23:59 Intake Total 1065 1650 1556.667 889.166 Output Total 910 150 100 100 Balance 155 1500 1456.667 789.166 - Objective General Appearance: positive: No acute distress, Alert Eyes Bilateral: positive: Normal inspection ENT: positive: Other (Nasal congestion. He is on O2 per n.c. currently.) Neck: positive: Nml inspection, No JVD Respiratory: positive: Breath sounds nml (but diminishe sounds.) Cardiovascular: positive: Regular rate & rhythm, No murmur Abdomen: positive: Non-tender, No distention Skin: positive: Warm, Dry Extremities: positive: No pedal edema, Other (Distal L arm is wraped.) - Lab Results Fish Bones: 09/17/22 07:17 09/17/22 04:22 Other Labs: Lab Results x24hrs 09/17/22 09/17/22 09/17/22 Range/Units 16:28 11:40 08:20 WBC (4.8-10.8) x10^3/uL RBC (4.70-6.10) 10^6/uL Hgb (14.0-18.0) g/dL Hct (42.0-52.0) % MCV (80.0-94.0) fL MCH (27.0-31.0) pg MCHC (32.0-36.0) g/dL RDW (12.0-15.0) % Plt Count (130-450) 10^3/uL MPV (7.4-11.4) fL Neut # (Auto) (1.5-6.6) 10^3/uL Lymph # (Auto) (1.5-3.5) 10^3/uL [place] # (Auto) (0.0-1.0) 10^3/uL Eos # (Auto) (0.0-0.7) 10^3/uL Baso # (Auto) (0.0-0.1) 10^3/uL Absolute Nucleated RBC x10^3/uL Nucleated RBC % /100WBC VBG pH (7.31-7.41) Ionized Calcium (1.15-1.33) mmol/L Sodium (135-145) mmol/L Potassium (3.5-5.0) mmol/L Chloride (101-111) mmol/L Carbon Dioxide (21-32) mmol/L Anion Gap (6-13) BUN (6-20) mg/dL Creatinine (0.6-1.2) mg/dL Estimated GFR (MDRD) (>89) Glucose (70-100) mg/dL POC Whole Bld Glucose 303 H 202 H 70 (70 - 100) mg/dL Calcium (8.5-10.3) mg/dL Phosphorus (2.5-4.6) mg/dL Magnesium (1.7-2.8) mg/dL 09/17/22 09/17/22 09/17/22 Range/Units 07:48 07:17 04:22 WBC 11.7 H (4.8-10.8) x10^3/uL RBC 3.91 L (4.70-6.10) 10^6/uL Hgb 11.9 L (14.0-18.0) g/dL Hct 35.9 L (42.0-52.0) % MCV 91.8 (80.0-94.0) fL MCH 30.4 (27.0-31.0) pg MCHC 33.1 (32.0-36.0) g/dL RDW 13.4 (12.0-15.0) % Plt Count 144 (130-450) 10^3/uL MPV 10.1 (7.4-11.4) fL Neut # (Auto) 9.5 H (1.5-6.6) 10^3/uL Lymph # (Auto) 0.9 L (1.5-3.5) 10^3/uL [place] # (Auto) 1.2 H (0.0-1.0) 10^3/uL Eos # (Auto) 0.0 (0.0-0.7) 10^3/uL Baso # (Auto) 0.0 (0.0-0.1) 10^3/uL Absolute Nucleated RBC 0.00 x10^3/uL Nucleated RBC % 0.0 /100WBC VBG pH 7.317 (7.31-7.41) Ionized Calcium 1.11 L (1.15-1.33) mmol/L Sodium (135-145) mmol/L Potassium (3.5-5.0) mmol/L Chloride (101-111) mmol/L Carbon Dioxide (21-32) mmol/L Anion Gap (6-13) BUN (6-20) mg/dL Creatinine (0.6-1.2) mg/dL Estimated GFR (MDRD) (>89) Glucose (70-100) mg/dL POC Whole Bld Glucose 61 L (70 - 100) mg/dL Calcium (8.5-10.3) mg/dL Phosphorus (2.5-4.6) mg/dL Magnesium (1.7-2.8) mg/dL 09/17/22 09/16/22 Range/Units 04:22 20:29 WBC (4.8-10.8) x10^3/uL RBC (4.70-6.10) 10^6/uL Hgb (14.0-18.0) g/dL Hct (42.0-52.0) % MCV (80.0-94.0) fL MCH (27.0-31.0) pg MCHC (32.0-36.0) g/dL RDW (12.0-15.0) % Plt Count (130-450) 10^3/uL MPV (7.4-11.4) fL Neut # (Auto) (1.5-6.6) 10^3/uL Lymph # (Auto) (1.5-3.5) 10^3/uL [place] # (Auto) (0.0-1.0) 10^3/uL Eos # (Auto) (0.0-0.7) 10^3/uL Baso # (Auto) (0.0-0.1) 10^3/uL Absolute Nucleated RBC x10^3/uL Nucleated RBC % /100WBC VBG pH (7.31-7.41) Ionized Calcium (1.15-1.33) mmol/L Sodium 130 L (135-145) mmol/L Potassium 4.4 (3.5-5.0) mmol/L Chloride 101 (101-111) mmol/L Carbon Dioxide 21 (21-32) mmol/L Anion Gap 8.0 (6-13) BUN 87 H* (6-20) mg/dL Creatinine 3.2 H (0.6-1.2) mg/dL Estimated GFR (MDRD) 19 L (>89) Glucose 92 (70-100) mg/dL POC Whole Bld Glucose 229 H (70 - 100) mg/dL Calcium 8.6 (8.5-10.3) mg/dL Phosphorus 4.5 (2.5-4.6) mg/dL Magnesium 2.4 (1.7-2.8) mg/dL Assessment/Plan - Problem List (1) Acute respiratory failure with hypoxia Impression: Cause appears to be multifactorial: from COPD exacerbation and exacerbation of diastolic heart failure and from pleural effusion (but that was tapped and drained 09/11). On 09/12, he got severely short of breath, was guppy breathing and exhaling with pursed lips. CXR showed mild re-accumulation of fluid. He was started on empiric therapeutic Lovenox for treating a poss PE. We obtained Duplex US of swollen L arm and it did R/O a DVT. Because of persistent resp distress with tachypneic and pursed lip breathing, BIPAP was ordered and he was moved to ICU. We stopped Lovenox and resumed Eliquis (which he was on at home) on 09/13. His dose has been lowered due to renal failure Plan: Remain in ICU, to continue BIPAP nightly, to allow his resp muscles to rest, and suppl O2 daytime with target sats of 88% or above. RT and I have tried to get an order started for him to get a BiPAP or Trilogy machine, but he is a [facility] patient and authorization could take a week or more. When I told the daughter this several days ago, she said they would pay for it [id number]. So I tried to call the Guest Relations Receptionist at the [facility] in [place] today but got no answer at . RT called the [facility] today, as advised by Rosanne of our dept. Continue to treat the underlying problems. We have discussed his need to stop smoking. He will need an oximetry walk test on the day of discharge to see what setting of new home oxygen. He said he would accept using home O2. 2. COPD with acute exacerbation Probably this one is due to viral infection: he is rhinovirus (+). He was very wheezy since admission until 09/15. We started empiric antibx on 09/13, using Cefepime IV to cover Pseudomonas and since he had frequent exacerbations, not Zithromax and Ceftriaxone, because the Zithromax plus being on Flecainide would give him high risk of prolonged QT. Quitting smoking was discussed with him when daughter was on phone, on 09/12. Using suppl O2 since admission and BiPAP nightly has significantly improved his weakness of respiratory muscles and feeling of air hunger. Plan: Continue Nebulized DuoNeb treatment on a fixed schedule, and will add Duoneb as needed q4h. Cont inhaled budesonide Continue Solumedrol, dose decreased on 09/16 from 80 iv tid to 40 iv tid Continue empiric Cefepime 2 g IV 3 times daily to cover Pseudomonas and since he has frequent exacerbations. Plan a 7day course then stop. Continue supplemental O2 including BiPAP every night, with target sats 88% minimum. He can start PT and OT evaluation since his lungs are finally clear I think he is a candidate for a BIPAP or Trilogy machine, and are working on this with RT. 3. Acute on chronic kidney insufficiency This gentleman's baseline creatinine appears to be about 1.2. It was over 2 and that is why his Lasix was discontinued. Now he is over 3 even before he received Lasix. His weight is significantly increased from last month. Renal ultrasound was done to make sure there is no hydronephrosis or obstruction>> no hydronephrosis or obstruction but he has a large post-void r esidual of 450 cc in bladder. Creats here have been plateaued around 3.0. This may be his new chronic creat level and he may be in CKD Stage IV now. Plan: Avoid nephrotoxins We started gentle iv hydration slowly on 09/16, to stop 09/18. Follow BMP daily He needs to see his Plant Attendant soon after DCh and possibly also Urology. 4. Hyponatremia Na is 128, and has been declining slowly. This appears to be hypovolemic hyponatremia since it parallels his rise of BUN/creatinine ratio. He has not been on diuretics for many days now, however his oral intake has been poor Plan: Give IV saline slowly, 2 bags total over 2 days, started 09/16 5. L arm swelling He reported that L arm swelling started approximately a week before this admission. DVT was ruled out during this admission, with a duplex ultrasound. I felt it was from him constantly sleeping on his left shoulder and compressing venous return and lymphatic flow. Even after he changed position, the left arm has been swollen compared to the R. On 09/15, the L arm started weeping through blisters of the lower arms that developed several skin tears. The nurse is wrapping it where it is started weeping. It is leaking serous fluid. Once the leaking began, the rest of the upper arm is no longer swollen. Plan: I suspect that he has some abnormal anatomy in the left axillary area that prevents lymphatic drainage. Continue with absorptive pads for his serous drainage. Will start dressing the wounds, at the skin tears, with antibacterial ointments and continue dressing changes to absorb the liquid. 6. DM He took Glipizide at home, and may have been about to change to Trulicity, per the daughter telling his RN. His A1c now is 8.8, indicating not optimal glu control. I expected that his glucose levels will be elevated while he is on Solumedrol, and they have been 200-300. Today morning glu was 70, after Solumedrol dosing was decreased yesterday. Plan: We resumed Glipizide bid We ordered a DM diet We ordered Hypoglycemia protocol, sliding scale insulin coverage and fingerstick checks before meals and at bedtime. Will adjust Lantus and nutritional Insulin dosing 7. Recurrent pleural effusion. Thoracentesis by ultrasound guidance for diagnostic and therapeutic tap was done 09/11>> post-tap the CXR revealed no residual effusion, but the next day 09/12, his CXR showed a small recurrence of effusion. His risks for cancer are smoking & was exposed to agent orange. CT did not show a lung cancer and has been stable since October of this year. The pleural effusion could be from congestive heart failure or CKD, since the specimen is a transudate. The final cultures come back growing nothing. Cytology only shows "inflammatory cells". There are no malignant cells seen. He also had unilateral arm swelling of L arm. We obtained Duplex US of swollen L arm and it did R/O a DVT. Plan: We resumed Eliquis bid on 09/13, since a repeat thoracentesis was not needed. I told the patient, and the daughter Kaeligh on the phone, about the results of the fluid showing no malignancy and the other findings. Pulmonology input would be helpful after DCh. 8. Diastolic heart failure, acute. Improved. On physical exam he had pedal edema at admission, which has resolved. His lung exam has rhonchi and wheezing, c/w viral infection. He had no JVP elevation. BNP is not severely elevated at 353. But weight was reportedly significantly increased An Echocardiogram was done 09/11 and showed normal LVEF, therefore this is diastolic dysfunction, from RV overload that is compressing the LV 9. HTN BP was as high as 180's/100 Plan: BP meds begun. 10. Cor pulmonale This was seen on Echo: The RV is dilated and is compressing the LV. His Cor Pulmonale is likely from his significant COPD. He will be very fluid and diuretic sensitive. 11. Tobacco use He used to smoke a lot but reports that in the 2 days before this admission he was down to 3 cigarettes/day. He also admitted that since admission, he has had no urge for cigarette Plan: We did not order a nicotine patch since he has no urge and he does not want it. The daughter (on phone call 09/11), and I both reiterated the importance of stopping smoking given his COPD and PVD history. 12. History of gastritis He had a history of duodenitis, esophagitis and Iron deficiency anemia. He was just seen September 07 and had EGD with Dr. Franklin. The surg report said: Mild gastritis. The pathology report was neg for malignancy or H pylori. Hemoglobin has been acceptable. He was off anticoagulants and anti-plt agents due to the GI bleed Hx. He had complained of "reflux acid". Tums as needed was ordered and did not help much. Sucralfate prn was azul ordered. Plan: We have resumed Eliquis on 09/13 but not the anti-plt agent Continue proton pump inhibitor Continue TUMS prn and Sucralfate achs prn acid reflux 13. History of atrial fibrillation. Hx of GI bleed is why he was not on anticoagulation recently. He takes Tambocor 50 mg every 12 hours and Carvedilol 12.5 mg twice daily. Plan: We resumed these meds and resumed Eliquis on 09/13. The patient reported he is scheduled to get a Watchman device implanted on October 19, 2022 Since Carvedilol is not a beta-1 selective beta-remington, it would be much better for this COPD-er to be on Metoprolol, which is purely B-1 remington. I made the change to Toprol and stopped Carvedilol, and he should be [facility] on new Toprol 14. PVD His daughter Kaleigh, in our conversation by phone in his room on 09/12, happened to mention that this pt has vascular disease, had right-sided carotid endarterectomy and has a Vascular specialist who follows him. The daughter did not know if there were any blockages of his left arm that may explain his unilateral left arm swelling Plan: We resumed the Eliquis, not the antiplt agents Will continue with statin if he is on that and he needs to be at target LDL less than 70 The daughter and I both reiterated to the pt, during that phone call, the need for him to stop smoking.
[2022-09-17] MEDS: CEFEPIME 2 GM in SODIUM CHLORIDE 0.9% MINIBAG 100 ML IV SCH (18:42)
[2022-09-17] MEDS: ATORVASTATIN 40 MG TABLET PO SCH (21:25)
[2022-09-17] MEDS: MONTELUKAST 10 MG TABLET PO SCH (21:27)
[2022-09-18] MEDS: SODIUM CHLORIDE FLUSH 0.9% 10 ML SYRINGE IVP SCH ×4 (00:19→21:08)
[2022-09-18 05:06] LABS: HCT - HEMATOCRIT 30.7 % (42.0-52.0); HGB - HEMOGLOBIN 10.3 g/dL (14.0-18.0); LYMPHOCYTES # (AUTO) 0.3 10^3/uL (1.5-3.5); MEAN CORPUSCULAR HEMOGLOBIN 31.1 pg (27.0-31.0); MEAN CORPUSCULAR HGB CONC 33.6 g/dL (32.0-36.0); MEAN CORPUSCULAR VOLUME 92.7 fL (80.0-94.0); MEAN PLATELET VOLUME 10.3 fL (7.4-11.4); MONOCYTES # (AUTO) 0.3 10^3/uL (0.0-1.0); MONOCYTES % (AUTO) 3.6 %; NEUTROPHILS # (AUTO) 6.9 10^3/uL (1.5-6.6); NEUTROPHILS % (AUTO) 91.9 %; PLT - PLATELET COUNT 122 10^3/uL (130-450); RED BLOOD COUNT 3.31 10^6/uL (4.70-6.10); RED CELL DISTRIBUTION WIDTH 13.7 % (12.0-15.0); WHITE BLOOD COUNT 7.6 x10^3/uL (4.8-10.8)
[2022-09-18 05:19] LABS: CREATININE 2.2 mg/dL (0.6-1.2); POTASSIUM 3.5 mmol/L (3.5-5.0)
[2022-09-18 05:20] LABS: CALCIUM 6.1 mg/dL (8.5-10.3)
[2022-09-18] MEDS: methylPREDNISolone SUCCINATE 40 MG/ML VIAL IVP SCH ×3 (06:25→20:56)
[2022-09-18] MEDS: hydrALAZINE 10 MG TABLET PO SCH ×3 (06:25→22:06)
[2022-09-18] MEDS: INSULIN LISPRO 300 UNIT/3 ML PEN SUBQ SCH ×4 (08:03→21:00)
[2022-09-18] MEDS: APIXABAN 5 MG TABLET PO SCH ×2 (08:26→20:54)
[2022-09-18] MEDS: FOLIC ACID 1 MG TABLET PO SCH (08:26)
[2022-09-18] MEDS: CYANOCOBALAMIN 500 MCG TABLET PO SCH (08:26)
[2022-09-18] MEDS: SERTRALINE 50 MG TABLET PO SCH (08:27)
[2022-09-18] MEDS: FLECAINIDE 50 MG TABLET PO SCH ×2 (08:27→20:55)
[2022-09-18] MEDS: MULTIVITAMIN W/MINERALS TABLET PO SCH (08:27)
[2022-09-18] MEDS: METOPROLOL SUCCINATE 25 MG TABLET PO SCH ×2 (08:27→20:58)
[2022-09-18] MEDS: CHOLECALCIFEROL 25 MCG TABLET PO SCH (08:27)
[2022-09-18] MEDS: PANTOPRAZOLE 40 MG TABLET PO SCH (08:27)
[2022-09-18] MEDS: TAMSULOSIN 0.4 MG CAPSULE PO SCH (08:28)
[2022-09-18] MEDS: CALCIUM CARBONATE CHEW 500 MG TABLET PO SCH ×2 (08:28→20:54)
[2022-09-18] MEDS: DOCUSATE SODIUM 250 MG CAPSULE PO SCH (08:28)
[2022-09-18] MEDS: glipiZIDE 5 MG TABLET PO SCH ×2 (08:28→20:55)
[2022-09-18] MEDS: guaiFENesin 600 MG TABLET PO SCH ×2 (08:28→20:55)
[2022-09-18] MEDS: polyethylene glycoL 3350 17 GM PACKET PO SCH (08:28)
[2022-09-18] MEDS: FERROUS SULFATE 325 MG TABLET PO SCH (08:29)
[2022-09-18] MEDS: FLUTICASONE NASAL SPRAY NAS SCH ×3 (08:36→21:09)
[2022-09-18] MEDS: IPRATROPIUM/ALBUTEROL 3 ML NEB INH SCH ×4 (09:03→20:05)
[2022-09-18] MEDS: BUDESONIDE 0.5 MG/2 ML NEB INH SCH ×2 (09:04→20:05)
[2022-09-18] MEDS: AZELASTINE HCL 137 MCG/0.137 ML NAS SCH ×2 (13:54→20:57)
[2022-09-18] MEDS: PUMP NAS SCH ×2 (13:54→20:57)
--- NOTE | 2022-09-18 17:09 | PROVIDER PROGRESS NOTE ---
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 He supposed to be on a CPAP mask for the obstructive sleep apnea. A [place] nurse called me today. She said she is not the nurse that handles the pulmonology patients but somehow this question landed on her desk. She she wanted me to know that she was going to be forwarding it to the pulmonary nurse and that pulmonary nurses can make the pulmonary attending review are data. She says that the patient really does need a sleep study starting off on room air. Once he desaturates make sure he goes on BiPAP. Then once on BiPAP how much oxygen does he need to bleed in. We need to justify why he needs the BiPAP, and why he needs the oxygen bleed. She asked that we fax the sleep study to [phone]. Attention Dr. Jr Robbins. The patient himself was asked to call the [facility] sleep center. That number is [phone], option 2. Part of the problem for this patient, according to their records, is that he was "noncompliant" with the use of CPAP. He explains that he was not noncompliant. When he first received his CPAP machine it was working, but then it stopped giving him the puffs of air. Then it started making a weird noise. He made several attempts to call the [place] sleep center and no one ever returned his phone call so he gave up. So essentially stopped using his CPAP masking machine probably 2 years ago. He says he was noncompliant, it was at the [place] never returned his phone calls. I am seeing the patient today as the hospitalist on service. I admitted him last week, and I am seeing him now after a week is gone by therapy. He is tremendously improved. He is sitting upright in his chair, no longer gasping for air, and as always, a sherlyn conversationalist. He tells the best stories. On room air he is 95%. Current Medications - Current Medications Current Medications: Active Medications Acetaminophen (Acetaminophen 325 Mg Tablet) 650 mg PO Q4HR PRN PRN Reason: Pain 1 to 4, or Fever Albuterol/Ipratropium (Ipratropium/Albuterol 3 Ml Neb) 3 ml INH RTQID [facility] Last Admin: 09/18/22 16:28 Dose: 3 ml Albuterol/Ipratropium (Ipratropium/Albuterol 3 Ml Neb) 3 ml INH Q3HR PRN PRN Reason: Wheezing Last Admin: 09/15/22 04:36 Dose: 3 ml Apixaban (Apixaban 5 Mg Tablet) 5 mg PO BID [facility] Last Admin: 09/18/22 08:26 Dose: 5 mg Atorvastatin Calcium (Atorvastatin 40 Mg Tablet) 80 mg PO QPM [facility] Last Admin: 09/17/22 21:25 Dose: 80 mg Bacitracin (Bacitracin Zinc Oint 1 Packet) 1 packet TOP PRN PRN PRN Reason: Skin Care Last Admin: 09/13/22 21:13 Dose: 1 packet Budesonide (Budesonide 0.5 Mg/2 Ml Neb) 0.5 mg INH RTBID [facility] Last Admin: 09/18/22 09:04 Dose: 0.5 mg Calcium Carbonate/Glycine (Calcium Carbonate Chew 500 Mg Tablet) 500 mg PO BID [facility] Last Admin: 09/18/22 08:28 Dose: 500 mg Cholecalciferol (Cholecalciferol 25 Mcg Tablet) 50 mcg PO DAILY [facility] Last Admin: 09/18/22 08:27 Dose: 50 mcg Cyanocobalamin (Cyanocobalamin 500 Mcg Tablet) 1,000 mcg PO DAILY [facility] Last Admin: 09/18/22 08:26 Dose: 1,000 mcg Docusate Sodium (Docusate Sodium 250 Mg Capsule) 250 - 500 mg PO DAILY [facility] Last Admin: 09/18/22 08:28 Dose: 250 mg Ferrous Sulfate (Ferrous Sulfate 325 Mg Tablet) [facility] Last Admin: 09/18/22 08:29 Dose: Not Given Flecainide Acetate (Flecainide 50 Mg Tablet) 50 mg PO BID [facility] Last Admin: 09/18/22 08:27 Dose: 50 mg Fluticasone Propionate (Fluticasone Nasal Hodgen) 1 sprays [place] BID [facility] Last Admin: 09/18/22 08:36 Dose: 1 sprays Folic Acid (Folic Acid 1 Mg Tablet) 1 mg PO DAILY [facility] Last Admin: 09/18/22 08:26 Dose: 1 mg Glipizide (Glipizide 5 Mg Tablet) 5 mg PO BID [facility] Last Admin: 09/18/22 08:28 Dose: 5 mg Guaifenesin (Guaifenesin 600 Mg Tablet) 600 mg PO BID [facility] Last Admin: 09/18/22 08:28 Dose: 600 mg Hydralazine HCl (Hydralazine 10 Mg Tablet) 10 mg PO TID [facility] Last Admin: 09/18/22 13:56 Dose: 10 mg Cefepime HCl 2 gm/ Sodium (Chloride) 100 mls @ 200 mls/hr IV BID [facility] Insulin Human Lispro (Insulin Lispro 300 Unit/3 Ml Pen) 3 - 11 unit SUBQ 0800,1200,1700,2100 [facility]; Protocol Last Admin: 09/18/22 16:38 Dose: 7 unit Lorazepam (Lorazepam 2 Mg/Ml Vial) 0.5 mg IVP Q2H PRN PRN Reason: Anxiety Last Admin: 09/13/22 19:02 Dose: 0.5 mg Methylprednisolone (Methylprednisolone Succinate 40 Mg/Ml Vial) 40 mg IVP TID [facility] Last Admin: 09/18/22 13:56 Dose: 40 mg Metoprolol Succinate (Metoprolol Succinate 25 Mg Tablet) 25 mg PO BID [facility] Last Admin: 09/18/22 08:27 Dose: 25 mg Montelukast Sodium (Montelukast 10 Mg Tablet) 10 mg PO QPM [facility] Last Admin: 09/17/22 21:27 Dose: 10 mg Morphine Sulfate (Morphine 2 Mg/Ml Carpuject) 2 mg IVP Q6HR PRN PRN Reason: Dyspnea Multivitamins/Minerals (Multivitamin W/Minerals Tablet) 1 tab PO DAILYWM [facility] Last Admin: 09/18/22 08:27 Dose: 1 tab Oxycodone HCl (Oxycodone 5 Mg Tablet) 5 mg PO Q4HR PRN PRN Reason: Pain 5 to 7 Pantoprazole Sodium (Pantoprazole 40 Mg Tablet) 40 mg PO DAILY [facility] Last Admin: 09/18/22 08:27 Dose: 40 mg Patient Own Med ( Azelastine Hcl [ Azelastine Hcl] 137 Mcg/0.137 Ml Hodgen. Pump) 2 each DAKOTA BID [facility] Last Admin: 09/18/22 13:54 Dose: Not Given Polyethylene Glycol (Polyethylene Glycol 3350 17 Gm Packet) 17 gm PO DAILY [facility] Last Admin: 09/18/22 08:28 Dose: Not Given Sertraline HCl (Sertraline 50 Mg Tablet) 50 mg PO DAILY [facility] Last Admin: 09/18/22 08:27 Dose: 50 mg Sodium Chloride (Sodium Chloride Flush 0.9% 10 Ml Syringe) 10 ml IVP PRN PRN PRN Reason: NEEDED PER PROVIDER ORDERS Last Admin: 09/17/22 05:58 Dose: 10 ml Sodium Chloride (Sodium Chloride Flush 0.9% 10 Ml Syringe) 10 ml IVP 0100,0900,1700 [facility] Last Admin: 09/18/22 08:45 Dose: 10 ml Sucralfate (Sucralfate 1 Gm/10 Ml Udc) 1 gm PO ACHS PRN PRN Reason: Heartburn Last Admin: 09/15/22 16:41 Dose: 1 gm Tamsulosin HCl (Tamsulosin 0.4 Mg Capsule) 0.4 mg PO DAILY [facility] Last Admin: 09/18/22 08:28 Dose: 0.4 mg Throat Lozenges (Benzocaine/Menthol Lozenge) 1 lozenge MM Q2HR PRN PRN Reason: Throat pain Last Admin: 09/15/22 18:52 Dose: 1 lozenge Zolpidem Tartrate (Zolpidem 5 Mg Tablet) 5 mg PO QPM PRN PRN Reason: Insomnia Albuterol Sulfate [Proair Hfa Inhaler] 1 - 2 puffs INH Q4H PRN 12/01/20 Azelastine HCl 2 spray NS BID 12/01/20 Carvedilol [Coreg] 12.5 mg PO BID 12/01/20 Flecainide [Tambocar] 50 mg PO Q12H 12/01/20 Montelukast [Singulair] 10 mg PO QPM 12/01/20 Tamsulosin [Flomax] 0.8 mg PO DAILY 12/01/20 Fluticasone Propion/Salmeterol [Wixela 250-50 Inhub] 1 puffs IH BID 11/01/21 Pantoprazole Sodium 40 mg PO DAILY 11/01/21 Tiotropium [place] [Spiriva] 2 puffs INH DAILY 02/21/22 Cholecalciferol [Vitamin D3] 50 mcg PO DAILY 09/03/22 Cyanocobalamin (Vitamin B-12) [Vitamin B-12] 1,000 mcg PO DAILY 09/03/22 Ferrous Sulfate 325 mg PO DAILY 09/03/22 Folic Acid 0.8 mg PO DAILY 09/03/22 Multivitamin 1 tab PO DAILY 09/03/22 Sertraline [Zoloft] 50 mg PO DAILY 09/03/22 Apixaban [Eliquis] 5 mg PO BID 09/11/22 Atorvastatin Calcium [Lipitor] 80 mg PO QPM 09/11/22 Dulaglutide [Trulicity] 0.75 mg SQ WE 09/11/22 Objective - Vital Signs/Intake & Output Reviewed Vital Signs: Yes Vital Signs: Vital Signs x48h Temp Pulse Pulse Resp BP Pulse Ox 09/18/22 16:28 65 20 09/18/22 14:00 68 22 184/71 H 95 09/18/22 12:58 64 22 09/18/22 12:00 35.9 C L 72 27 H 131/87 H 96 09/18/22 11:00 72 27 H 124/74 90 L Intake & Output: Intake & Output 09/15/22 09/16/22 09/17/22 09/18/22 23:59 23:59 23:59 23:59 Intake Total 1650 8987.813 4709.166 1944.167 Output Total 150 100 100 350 Balance 1500 6150.429 7570.166 1594.167 - Objective General Appearance: positive: No acute distress, Alert, Other (Oriented, lucid conversational) Eyes Bilateral: positive: PERRL, EOMI ENT: positive: Pharynx nml Neck: positive: No JVD. negative: Stiff neck Respiratory: positive: No respiratory distress. negative: Wheezes (But has prolonged and exhalation time it is very apparent), Rales, Rhonchi Cardiovascular: positive: Regular rate & rhythm Abdomen: positive: Non-tender, No organomegaly, Nml bowel sounds, No distention Skin: positive: Warm, Dry Extremities: positive: Non-tender, Pedal edema (4+ of his feet. They are quite bulbous and there edema) Neurologic/Psychiatric: positive: Oriented x3, CN's nml (2-12), Motor nml - Lab Results Fish Bones: 09/18/22 04:19 09/18/22 04:19 Other Labs: Lab Results x24hrs 09/18/22 09/18/22 09/18/22 Range/Units 16:32 11:53 07:56 WBC (4.8-10.8) x10^3/uL RBC (4.70-6.10) 10^6/uL Hgb (14.0-18.0) g/dL Hct (42.0-52.0) % MCV (80.0-94.0) fL MCH (27.0-31.0) pg MCHC (32.0-36.0) g/dL RDW (12.0-15.0) % Plt Count (130-450) 10^3/uL MPV (7.4-11.4) fL Neut # (Auto) (1.5-6.6) 10^3/uL Lymph # (Auto) (1.5-3.5) 10^3/uL Loving # (Auto) (0.0-1.0) 10^3/uL Eos # (Auto) (0.0-0.7) 10^3/uL Baso # (Auto) (0.0-0.1) 10^3/uL Absolute Nucleated RBC x10^3/uL Nucleated RBC % /100WBC Sodium (135-145) mmol/L Potassium (3.5-5.0) mmol/L Chloride (101-111) mmol/L Carbon Dioxide (21-32) mmol/L Anion Gap (6-13) BUN (6-20) mg/dL Creatinine (0.6-1.2) mg/dL Estimated GFR (MDRD) (>89) Glucose (70-100) mg/dL POC Whole Bld Glucose 231 H 213 H 186 H (70 - 100) mg/dL Calcium (8.5-10.3) mg/dL 09/18/22 09/18/22 09/18/22 Range/Units 06:25 04:19 04:19 WBC 7.6 (4.8-10.8) x10^3/uL RBC 3.31 L (4.70-6.10) 10^6/uL Hgb 10.3 L (14.0-18.0) g/dL Hct 30.7 L (42.0-52.0) % MCV 92.7 (80.0-94.0) fL MCH 31.1 H (27.0-31.0) pg MCHC 33.6 (32.0-36.0) g/dL RDW 13.7 (12.0-15.0) % Plt Count 122 L (130-450) 10^3/uL MPV 10.3 (7.4-11.4) fL Neut # (Auto) 6.9 H (1.5-6.6) 10^3/uL Lymph # (Auto) 0.3 L (1.5-3.5) 10^3/uL Loving # (Auto) 0.3 (0.0-1.0) 10^3/uL Eos # (Auto) 0.0 (0.0-0.7) 10^3/uL Baso # (Auto) 0.0 (0.0-0.1) 10^3/uL Absolute Nucleated RBC 0.00 x10^3/uL Nucleated RBC % 0.0 /100WBC Sodium 134 L (135-145) mmol/L Potassium 3.5 (3.5-5.0) mmol/L Chloride 111 (101-111) mmol/L Carbon Dioxide 17 L (21-32) mmol/L Anion Gap 6.0 (6-13) BUN 66 H (6-20) mg/dL Creatinine 2.2 H (0.6-1.2) mg/dL Estimated GFR (MDRD) 29 L (>89) Glucose 157 H (70-100) mg/dL POC Whole Bld Glucose (70 - 100) mg/dL Calcium 8.2 L 6.1 L* (8.5-10.3) mg/dL 09/17/22 Range/Units 20:53 WBC (4.8-10.8) x10^3/uL RBC (4.70-6.10) 10^6/uL Hgb (14.0-18.0) g/dL Hct (42.0-52.0) % MCV (80.0-94.0) fL MCH (27.0-31.0) pg MCHC (32.0-36.0) g/dL RDW (12.0-15.0) % Plt Count (130-450) 10^3/uL MPV (7.4-11.4) fL Neut # (Auto) (1.5-6.6) 10^3/uL Lymph # (Auto) (1.5-3.5) 10^3/uL Loving # (Auto) (0.0-1.0) 10^3/uL Eos # (Auto) (0.0-0.7) 10^3/uL Baso # (Auto) (0.0-0.1) 10^3/uL Absolute Nucleated RBC x10^3/uL Nucleated RBC % /100WBC Sodium (135-145) mmol/L Potassium (3.5-5.0) mmol/L Chloride (101-111) mmol/L Carbon Dioxide (21-32) mmol/L Anion Gap (6-13) BUN (6-20) mg/dL Creatinine (0.6-1.2) mg/dL Estimated GFR (MDRD) (>89) Glucose (70-100) mg/dL POC Whole Bld Glucose 277 H (70 - 100) mg/dL Calcium (8.5-10.3) mg/dL ABX Reporting Has patient been on IV antibiotics over the past 48 hours?: Yes Assessment/Plan - Problem List (1) Acute respiratory failure with hypoxia Impression: Impression: Cause appears to be multifactorial: from COPD exacerbation and exacerbation of diastolic heart failure and from pleural effusion (but that was tapped and drained 09/11). On 09/12, he got severely short of breath, was guppy breathing and exhaling with pursed lips. CXR showed mild re-accumulation of fluid. He was started on empiric therapeutic Lovenox for treating a poss PE. We obtained Duplex US of swollen L arm and it did R/O a DVT. Because of persistent resp distress with tachypneic and pursed lip breathing, BIPAP was ordered and he was moved to ICU. We stopped Lovenox and resumed Eliquis (which he was on at home) on 09/13. His dose has been lowered due to renal failure He has been on BiPAP nightly. We are now in the process of trying to get that authorized [facility] the [facility] as noted in the HPI. Because of the BiPAP, he is to remain in the ICU. Daughter is willing to pay [id number] if the [facility] does not approve this. The [facility] social services director was called September 17. A nurse from another division, and I am sorry that I did not take her name, called me today and I have the fax number for Dr. Jr Robbins and the pulmonary nurse to send a sleep study to. I have discussed this case at length with respiratory therapy today and they are going to set the patient up for our version of a sleep study ( I wonder if the [place] knows we are a critical access hospital with no sleep lab). 2. COPD with acute exacerbation Probably this one is due to viral infection: he is rhinovirus (+). He was very wheezy since admission until 09/15. We started empiric antibx on 09/13, using Cefepime IV to cover Pseudomonas and since he had frequent exacerbations, not Zithromax and Ceftriaxone, because the Zithromax plus being on Flecainide would give him high risk of prolonged QT. Cefepime was increased from 1 gram to 2 grams today since renal function improv ed. Quitting smoking was discussed with him when daughter was on phone, on 09/12. Using suppl O2 since admission and BiPAP nightly has significantly improved his weakness of respiratory muscles and feeling of air hunger. Was not seen by PT today: Pt not seen by PT today due to time constraints. Per RN, pt resting comfortably and had gotten up to chair with nsg and FWW earlier in the day. PT spoke with pt's dtr "Kaleigh" who reports she prefers pt to return home vs dc to SNF. He can live on main floor of house and has been sleeping in a recliner. Shower is on 2nd floor but Kaleigh reports she is comfortable assisting with "bed baths" until pt is strong enough to climb stairs. Pt may benefit from HHPT/OT/bathaide after hospital discharge. Will update recs closer to time of dc Plan: Continue Nebulized DuoNeb treatment on a fixed schedule, Duoneb was added for as needed q4h. I will change that to avoid to much anticholingergic effect of ipatropium. I will used prn albuterol q4h instead. Cont inhaled budesonide Continue Solumedrol, dose decreased on 09/16 from 80 iv tid to 40 iv tid and today I will decrease to bid then qd. Continue empiric Cefepime 2 g IV 3 times daily to cover Pseudomonas and since he has frequent exacerbations. Plan a 7day course then stop. Continue supplemental O2 including BiPAP every night, with target sats 88% minimum. I think he is a candidate for a BIPAP or Trilogy machine, and are working on this with RT. His diagnosis to support this are SENIA and end stage COPD 3. Acute on chronic kidney insufficiency This gentleman's baseline creatinine appears to be about 1.2. It was over 2 and that is why his Lasix was discontinued. He was over 3 even before he received Lasix. His weight is significantly increased from last month. Today creatinine is 2.2. Renal ultrasound was done to make sure there is no hydronephrosis or obstruction>> no hydronephrosis or obstruction but he has a large post-void residual of 450 cc in bladder. Creats here had plateaued around 3.0. This may be his new chronic creat level and he may be in CKD Stage IV now but I see he has improved today. Plan: Avoid nephrotoxins We started gentle iv hydration slowly on 09/16, to stop today Follow BMP daily He needs to see his Die Developer soon after DCh and possibly also Urology. 4. Hyponatremia Na was 128, and has been declining slowly. This appears to be hypovolemic hyponatremia since it parallels his rise of BUN/creatinine ratio. He has not been on diuretics for many days now, however his oral intake has been poor. He was given a slow rate of normal saline, started September 16. He completed 2 L today. Sodium 128>> 130>> 132 today 5. L arm swelling He reported that L arm swelling started approximately a week before this admission. DVT was ruled out during this admission, with a duplex ultrasound. I felt it was from him constantly sleeping on his left shoulder and compressing venous return and lymphatic flow. Even after he changed position, the left arm has been swollen compared to the R. On 09/15, the L arm started weeping through blisters of the lower arms that developed several skin tears. The nurse is wrapping it where it is started weeping. It is leaking serous fluid. Once the leaking began, the rest of the upper arm is no longer swollen. Plan: I suspect that he has some abnormal anatomy in the left axillary area that prevents lymphatic drainage. Continue with absorptive pads for his serous drainage. I will continue wound dressing at the skin tears, with antibacterial ointments and continue dressing changes to absorb the liquid. 6. DM He took Glipizide at home, and may have been about to change to Trulicity, per the daughter telling his RN. His A1c now is 8.8, indicating not optimal glu control. I expected that his glucose levels will be elevated while he is on Solumedrol, and they have been 200-300. Solu-Medrol started being decreased September 10 from 80 mg 3 times daily to 40 mg 3 times daily. I am decreasing it to twice daily starting tonight. Give him 3 doses of Solu-Medrol and then daily for 1 or 2 days then stop. I expect his glucose to go down with that. Current management is glipizide 5 mg p.o. twice daily, lispro sliding scale before meals, diabetic diet. Semglee was stopped yesterday since his glucose was 70. Glucose yesterday was 61 (repeat 70), 202, 303, 277. Today 186, 213, 231. We ordered Hypoglycemia protocol, sliding scale insulin coverage and fingerstick checks before meals and at bedtime. 7. Recurrent pleural effusion. Thoracentesis by ultrasound guidance for diagnostic and therapeutic tap was done 09/11>> post-tap the CXR revealed no residual effusion, but the next day 09/12, his CXR showed a small recurrence of effusion. His risks for cancer are smoking & was exposed to agent orange. CT did not show a lung cancer and has been stable since October of this year. The pleural effusion could be from congestive heart failure or CKD, since the specimen is a transudate. The final cultures come back growing nothing. Cytology only shows "inflammatory cells". There are no malignant cells seen. He also had unilateral arm swelling of L arm. We obtained Duplex US of swollen L arm and it did R/O a DVT. Plan: We resumed Eliquis bid on 09/13, since a repeat thoracentesis was not needed. I told the patient, and the daughter Kaliegh on the phone, about the results of the fluid showing no malignancy and the other findings. Pulmonology input would be helpful after DCh. 8. Diastolic heart failure, acute. Improved. On physical exam he had pedal edema at admission, which had resolved but had returned again on exam. His feet are quite edematous. His lung exam had rhonchi and wheezing, c/w viral infection but none today. He had no JVP elevation. BNP is not severely elevated at 353. But weight was reportedly significantly increased . Weight 99.7 on admission per the ER. But when [facility] he weighed at 78 kg. Today he is 79 kg. An Echocardiogram was done 09/11 and showed normal LVEF, therefore this is diastolic dysfunction, from RV overload that is compressing the LV Plan: elevate his legs. No lasix for now unless becomes more sob 9. HTN BP was as high as 180's/100. This morning he was 124/74, 131/87. This afternoon at 2 PM is 184/71. Plan: BP meds begun. 10. Cor pulmonale This was seen on Echo: The RV is dilated and is compressing the LV. His Cor Pulmonale is likely from his significant COPD. He will be very fluid and diuretic sensitive. 11. Tobacco use He used to smoke a lot but reports that in the 2 days before this admission he was down to 3 cigarettes/day. He also admitted that since admission, he has had no urge for cigarette Plan: We did not order a nicotine patch since he has no urge and he does not want it. The daughter (on phone call 09/11), and I both reiterated the importance of stopping smoking given his COPD and PVD history. 12. History of gastritis He had a history of duodenitis, esophagitis and Iron deficiency anemia. He was just seen September 07 and had EGD with Dr. Franklin. The surg report said: Mild gastritis. The pathology report was neg for malignancy or H pylori. Hemoglobin has been acceptable. He was off anticoagulants and anti-plt agents due to the GI bleed Hx. He had complained of "reflux acid". Tums as needed was ordered and did not help much. Sucralfate prn was azul ordered. Plan: We have resumed Eliquis on 09/13 but not the anti-plt agent Continue proton pump inhibitor Continue TUMS prn and Sucralfate achs prn acid reflux 13. History of atrial fibrillation. Hx of GI bleed is why he was not on anticoagulation recently. He takes Tambocor 50 mg every 12 hours and Carvedilol 12.5 mg twice daily. Plan: We resumed these meds and resumed Eliquis on 09/13. The patient reported he is scheduled to get a Watchman device implanted on October 19, 2022 Since Carvedilol is not a beta-1 selective beta-remington, it would be much better for this COPD-er to be on Metoprolol, which is purely B-1 remington. I made the change to Toprol and stopped Carvedilol, and he should be Wvh on new Toprol 14. PVD His daughter Kaleigh, in our conversation by phone in his room on 09/12, happened to mention that this pt has vascular disease, had right-sided carotid endarterectomy and has a Vascular specialist who follows him. The daughter did not know if there were any blockages of his left arm that may explain his unilateral left arm swelling Plan: We resumed the Eliquis, not the antiplt agents Will continue with statin if he is on that and he needs to be at target LDL less than 70 The daughter and I both reiterated to the pt, during that phone call, the need for him to stop smoking.
[2022-09-18] MEDS ORDERED: ALBUTEROL NEB 2.5 MG/3 ML INH PRN (17:22)
[2022-09-18] MEDS: CEFEPIME 2 GM in SODIUM CHLORIDE 0.9% MINIBAG 100 ML IV SCH ×2 (18:32→20:51)
[2022-09-18] MEDS: ATORVASTATIN 40 MG TABLET PO SCH (20:54)
[2022-09-18] MEDS: MONTELUKAST 10 MG TABLET PO SCH (20:56)
[2022-09-19] MEDS: hydrALAZINE 10 MG TABLET PO SCH ×2 (06:07→14:07)
[2022-09-19] MEDS: BUDESONIDE 0.5 MG/2 ML NEB INH SCH (07:11)
[2022-09-19] MEDS: IPRATROPIUM/ALBUTEROL 3 ML NEB INH SCH ×2 (07:11→11:32)
[2022-09-19] MEDS: INSULIN LISPRO 300 UNIT/3 ML PEN SUBQ SCH ×2 (08:08→12:08)
[2022-09-19] MEDS: guaiFENesin 600 MG TABLET PO SCH (08:33)
[2022-09-19] MEDS: MULTIVITAMIN W/MINERALS TABLET PO SCH (08:33)
[2022-09-19] MEDS: CYANOCOBALAMIN 500 MCG TABLET PO SCH (08:33)
[2022-09-19] MEDS: CALCIUM CARBONATE CHEW 500 MG TABLET PO SCH (08:33)
[2022-09-19] MEDS: PANTOPRAZOLE 40 MG TABLET PO SCH (08:33)
[2022-09-19] MEDS: glipiZIDE 5 MG TABLET PO SCH (08:34)
[2022-09-19] MEDS: FOLIC ACID 1 MG TABLET PO SCH (08:34)
[2022-09-19] MEDS: DOCUSATE SODIUM 250 MG CAPSULE PO SCH (08:34)
[2022-09-19] MEDS: APIXABAN 5 MG TABLET PO SCH (08:34)
[2022-09-19] MEDS: TAMSULOSIN 0.4 MG CAPSULE PO SCH (08:34)
[2022-09-19] MEDS: FLECAINIDE 50 MG TABLET PO SCH (08:34)
[2022-09-19] MEDS: CHOLECALCIFEROL 25 MCG TABLET PO SCH (08:34)
[2022-09-19] MEDS: polyethylene glycoL 3350 17 GM PACKET PO SCH (08:42)
[2022-09-19] MEDS: CEFEPIME 2 GM in SODIUM CHLORIDE 0.9% MINIBAG 100 ML IV SCH (08:44)
[2022-09-19] MEDS: SERTRALINE 50 MG TABLET PO SCH (08:46)
[2022-09-19] MEDS: FERROUS SULFATE 325 MG TABLET PO SCH (08:48)
[2022-09-19] MEDS: FLUTICASONE NASAL SPRAY NAS SCH (08:57)
[2022-09-19] MEDS: methylPREDNISolone SUCCINATE 40 MG/ML VIAL IVP SCH (08:57)
[2022-09-19] MEDS: METOPROLOL SUCCINATE 25 MG TABLET PO SCH (09:00)
[2022-09-19] MEDS: PUMP NAS SCH (09:00)
[2022-09-19] MEDS: AZELASTINE HCL 137 MCG/0.137 ML NAS SCH (09:00)
[2022-09-19] MEDS: SODIUM CHLORIDE FLUSH 0.9% 10 ML SYRINGE IVP SCH (09:00)
[2022-09-19] MEDS: SODIUM CHLORIDE FLUSH 0.9% 10 ML SYRINGE IVP PRN (10:26)
--- NOTE | 2022-09-19 11:27 | Discharge Plan ---
Discharge Plan Problem Reviewed?: Yes Disposition: Home, Self Care Condition: Stable Prescriptions: Metoprolol Succinate [Toprol Xl] 25 mg PO DAILY #30 tab Diet: Regular Activity Restrictions: Activity as Tolerated Shower Restrictions: No Driving Restrictions: Yes (no driving) Assistance Devices: [facility] Concerns: You have been having problems with iron deficiency anemia and had a transfusion, and endoscopy in the last month. You were set to get a second endoscopy and had September 07. You were getting blood work to make sure your anemia was better and while sitting waiting for your blood work, you were very, very, very short of breath and a rapid response was called in the hospital. You were taken to the emergency room because your emphysema was in severe exacerbation. We also noticed that you have a left pleural effusion that has been present since last summer. Your kidney function was much worse at a creatinine of 3.1. Your legs were swollen. We initially admitted to observation thinking that you would be able to go home after having steroids, and nebulizers but he was still so short of breath the next day we decided to keep you in a regular inpatient. You underwent a thoracentesis which is a needle in the chest to drain the fluid in the left chest wall. The pleural effusion was not infected. And he did not have any cancer cells. But does have a tendency to come back. It took us a very long time to stabilize your emphysema. You needed something called BiPAP to help push air in your lungs because your musculature of your chest and your lungs are very weak. We did an overnight sleep study on you September 18. And even though your emphysema is severe, you did not drop your oxygen enough to require oxygen or a BiPAP at home. But you are still severely deconditioned, it takes very little for you to get short of breath. Just the simple act of sitting up, standing, and walking a few feet makes you very short of breath. Your oxygen stays stable. Plan of Treatment: At discharge these of the problems you have: 1. Acute respiratory failure with hypoxia has resolved and we feel you now have chronic respiratory failure due to your emphysema. We made sure you do not have a blood clot and did an ultrasound of your left arm. 2. Severe end-stage emphysema. At this time you do not need oxygen, but I do think that down the road you will need to go home on oxygen. This emphysema leaves you very deconditioned and very easily short of breath when you try and do anything. To treat this emphysema we are going to resume your ProAir inhaler, Singulair, Spiriva inhaler, and fluticasone with salmeterol inhaler. Sometimes people's muscles get too weak with emphysema, and they do not have the strengthsuck in with the force needed for these inhalers. If that happens to you, please ask your doctor to switch you over to the nebulizer machine solutions like the one we gave you in the hospital. You are very close to needing that. We also evaluated you for some type of machine support at home. You have obstructive sleep apnea and you are supposed to be on a CPAP machine. You were prescribed that machine over a couple of years ago. But it did not work very well and you have not used it since. The [facility] considers you "noncompliant" and asked that were very reluctant to reissue you a new machine. We think that you need a machine for both your obstructive sleep apnea and emphysema. We think you need BiPAP. However we did an overnight sleep study the night before you left and your sleep study shows you to have normal oxygen levels. Please have your doctor do a formal sleep study evaluation on you to help the [facility] decide what [facility] to give you. Please do not smoke, ever again 3. Your iron deficiency anemia is still present. But you did not require blood transfusions. During your stay you had between 10.2-11.9 g of hemoglobin. You will need to go back home on your Protonix and Iron tablet. Please do not take any nonsteroidal therapy such as aspirin, Aleve, ibuprofen. At this time you can still go back on your Eliquis for your atrial fibrillation. 4. Atrial fibrillation rate was difficult to control at times. At home you take flecainide for this. We needed to add metoprolol to help slow down your heart rate at times. At discharge your pulse was 63 and you did not get your metoprolol that day. Your blood pressure is also a little on the low side. As such we held your metoprolol. I am sending you home with metoprolol. Take your postop morning. And if it is over 65 take the metoprolol. If it is below 65 do not take the metoprolol. 5. You have high blood pressure in your lungs. We call that pulmonary hypertension. That leads to right-sided heart failure (cor pulmonale) and swollen legs. The treatment for right-sided heart failure is diuretics. Unfortunately you already have chronic kidney disease. Your creatinine seems to be high between 2.0 and 2.8. When we use the diuretics to help your pulmonary hypertension and cor pulmonale, your creatinine went as high as 3.4. We backed off on the diuretics. And your creatinine came back down to 2.2. 6. In order help your leg edema and right-sided heart failure, I would like to avoid using diuretics to protect your kidneys. You do still need to take care of your swollen legs. So please elevate your legs every time you sit down. Do not have your feet on the floor. I also recommend foot and leg compression when you are with your legs up. Examples of this are: a. Normatec 3 legs from [employer] b. Healr from [employer] c. Lifepro Radiate Plus thigh, calf and foot massager from [employer]. 7. Your diabetes needed to be managed with insulin while you were here. You are about to be switched to Trulicity at home anyway. So when I send you home, you will be going back to Trulicity your doctor wanted you to be on. 8. Your pleural effusion has come back a little bit. Even though we did do a thoracentesis and removed most of the water outside of your lung. There is no malignancy. No infection. This may be from your cor pulmonale or right-sided heart failure. 9. Your blood pressure was low and high while here. It could be as high as the 180/100. But when we gave you medicine to lower your blood pressure, you are as low as 87/59. As such, for home, I am not sending you home with a new blood pressure pill. You were on hydralazine while you were here. I have opted not to send you home on that because you are too low today. Check in with your doctor at the office and make sure you do not need to take a blood pressure pill. 10. Please see your doctor in the next 1 to 2 weeks. You will need to follow- up with a tire layer. And I also need your doctor to send you to see a catheter finisher and inspector to use and get pulmonary function studies,. These pulmonary function studies will then be the first type II evaluation for an outpatient cardiopulmonary rehab program. You were wondering if you could be a candidate for lung transplant. You need to stop smoking for a minimum of 6 months. And the pulmonary function studies will also go long way to deciding how bad your lungs are. Care Goals: At this point in time is to control all of your multiple medical problems, to stabilize them, and hopefully you will live longer, better life Assessment: Patient is still his own advocate. Alert, oriented. Additional Instructions or Follow Up instructions: You have a pulmonary nodule that needs follow-up. These were seen on a CT scan. Followup should be in 3-6 months with a repeat CT scan of the chest. IMPRESSION: 1. Moderate left-sided pleural effusion with adjacent dependent atelectasis in left upper and lower lobes. No right-sided pleural effusion. No pneumothorax. 2. Moderate to severe centrilobular emphysema. Scattered scarring/atelectasis throughout periphery of bilateral lung lozano. 3. Cardiomegaly with pacemaker leads in place. No pericardial effusion. 4. Mildly enlarged mediastinal lymph nodes and stable prominent right hilar node and may represent reactive inflammatory nodes. 5. Stable 6 mm solid nodule in right lower lobe. Follow-Up Care: [facility] - Pulmonary No Smoking: If you smoke, Please STOP! Call for help. Follow-up with: NADEGE CALDERA ARNP [Primary Care Provider] -
[2022-09-19 12:22] LABS: CALCIUM 8.1 mg/dL (8.5-10.3); POTASSIUM 4.5 mmol/L (3.5-5.0)
[2022-09-19] MEDS ORDERED: SODIUM CHLORIDE 0.9% 500 ML IV ONE (12:42)
[2022-09-19 16:04] VITALS: BP 182/64
--- NOTE | 2022-09-19 19:17 | DISCHARGE SUMMARY ---
"Discharge Summary Admit Date: 09/10/22 Discharge Date: 09/19/22 Discharging Provider: Digna Coronel MD Primary Care Provider: NANNETTE Monique Code Status: Do Not Attempt Resuscitation Condition at Discharge: Stable Discharge Disposition: 01 Home, Self Care - DIAGNOSES Discharge Diagnoses with Status of Each Condition: 1. COPD with acute exacerbation 2. Acute respiratory failure with hypoxia 3. Rhinovirus infection 4. Recurrent pleural effusion 5. Acute on chronic kidney insufficiency stage III 6. Acute diastolic heart failure 7. Iron deficiency anemia 8. Atrial fibrillation 9. Left arm edema 10. Type 2 diabetes mellitus, uncontrolled with hyperglycemia 11. Cor pulmonale 12. Hypertension 13. Tobacco use 14. History of gastritis 15. Peripheral vascular disease - HPI History of Present Illness: This gentleman has severe emphysema by history with obstructive sleep apnea. He has been getting a work-up for iron deficiency anemia since August 2021. At that time he was transferred to [facility] for hemoglobin of 6.1 and an EGD was done and he was transfused. He had grade C esophagitis and duodenal erosions. He was on apixaban for chronic A. fib and that had to be stopped. Hematology put him on iron, and he was improving. By this August he was short of breath again, weak again, and labs repeated and he had another hemoglobin of 6.2. Another EGD was scheduled and done September 07. On top of that he developed a URI with symptomatology for 2 to 3 days. He has been off his diuretics because his doctors were worried about his kidneys and his legs were very swollen and ed ematous. He is not on home oxygen. He came to the lab today to get his blood work done for the CBC and he was found to be in such severe respiratory distress that a rapid response was called in the lobby of the hospital. Emergency room provider found to be alert and oriented, tachypnea, diminished breath sounds, chest x-ray showed a chronic left pleural effusion, and he had bilateral lower edema. He had severe centrilobular emphysema. He received Lasix, nebs, prednisone, and she was trying to get him out of the emergency room. But every time she tried he just became more short of breath and asked that she asked for him to be placed in observation. - CONSULTS | PROCEDURES Procedures: Chest x-ray was done on admission on the and shows a chronic left pleural effusion. Then he had a thoracentesis and he had recurrence of the effusion. Thoracentesis of 1.2 L of translucent serous yellow fluid. Pathology was negative for malignancy. Consider transudative on lab analysis. Echocardiogram with an overall left ventricular systolic function normal at 55%. Right ventricular systolic function normal. Pacemaker leads seen in atrium and right ventricle. RVSP at 53 mmHg with moderately abnormal right heart pressures. Thoracentesis pleural fluid cultures were negative for anaerobic and aerobic. - HOSPITAL COURSE Hospital Course: The next day the patient was changed to inpatient status since he had not improved. He continued to be severely tachypneic, hypoxic. He underwent a thoracentesis for diagnosis to make sure he did not have malignancy. None was found. However he decompensated from a respiratory perspective and needed to be transferred to the ICU and placed on BiPAP. He does not have a CPAP machine. He said that he had one a few years ago but it started malfunctioning within a few months of using it. He tried calling the [place] respiratory department to get help with troubleshooting on why it was not working and he never received a phone call as far as he knows. In our efforts to try and establish him with failed CPAP to go onto BiPAP, and to get this for home, we found all of this out. We then did an overnight study and found him to be stable overnight. He desatted to 88% in the carpentry supervisor hours of September 19. As such does not really qualify for BiPAP at home at this time. But he is clearly with end-stage COPD, clearly tachypneic with easy exertion. He no longer wanted to stay in the hospital waiting for further work-up. His left arm developed edema we did an ultrasound to make sure he did not have a DVT. None was present. But he is draining some clear serous fluid from lymphedema of the left arm. He needs to be keeping that wrapped with Kerlix and keeping the arm clean. Echocardiogram identified him as having pulmonary hypertension, cor pulmonale. He continued to have pedal edema that would wax and wane depending on of his feet were on the ground or not. We explained to him that he needs to keep his legs off the ground and elevated if he was going to be sitting. I also recommended that he go home and buy a leg compression that starts at his feet and goes up to his thighs and use that every time he sits down to elevate his legs. Iron deficiency anemia remained during his stay. But did not require transfusion. He was maintained on proton pump inhibitors, his oral iron after 1 single IV dose of iron infusion. At times his A. fib was difficult to control and he is already on flecainide. He was also on Coreg at home. The hospitalist he was on service felt that metoprolol would be a better choice for him and as such metoprolol was used as opposed to Coreg. However at times he would become bradycardic. I discharge I asked him to take his metoprolol as needed after checking his pulse that morning. He should follow-up with his spinneret person about the cor pulmonale, and the atrial fibrillation and use of Eliquis. He was continued on flecainide. He will discuss whether he should be on Coreg or metoprolol. Diabetes was discussed. Apparently on admission he was supposed to be on Trulicity. And taken off his sulfonylurea. We do not have Trulicity in formulary and asked that she was managed with short acting insulin and his glipizide 5 mg p.o. twice daily. I discharged we changed him to the Trulicity that his doctor wanted him to be on. Ozempic was substituted for Trulicity at the pharmacy. And the patient wanted a new prescription for glipizide. He also wanted albuterol and nebulized instead of MDI. When we diuresed him for his cor pulmonale and leg edema, his creatinine bumped up to over 3. He finally came back down to 2.2 the day before discharge. No changes made in his diuretics but his creatinine was 3 at discharge. I think this is in relation to hypotension. He was 85 systolic on the . As such I held his hydralazine and he was 196-182 by discharge. this poor patient has been whip sawedt back and forth between adding blood pressure medication and taking way blood pressure medication. I am hoping that if he goes home and has a stable diet, stable activity, we can more clearly decide if this patient needs to be on hydralazine 10 mg 3 times daily or not. I have asked him to see his physician in the next 1 to 2 weeks. He will need to be followed up by his PCP, cardiology, and I would like him to be sent to pulmonology to get pulmonary function studies. They also need to be done because he should be in a cardiopulmonary rehab program. He has lung nodule on a CT scan. It looks relatively benign. But he should get a repeat CT in 2 to 3 months. He is discharged in stable condition, but is still noticeably pursed lip breathing and starts heaving his chest and using accessory muscles if he speaks too much or gets up and walks around the room too much. His O2 sats remained stable. He is 97% on room air. He is a slender, 77-year-old male, who is alert, oriented. His feet are bulbous with edema. I too am worried about his kidney function and use of diuretics. I did offer him further tweaking of his meds. Keeping him another couple of day or 2. And he said he just really wanted to go home. Greater than 30 minutes was spent coordinating discharge. Greater than 30 minutes was spent coordinating discharge of this very complicated, very sherlyn man. - ALLERGIES Allergies/Adverse Reactions: Allergies Allergy/AdvReac Type Severity Reaction Status Date / Time metformin AdvReac affects Verified 05/11/22 18:16 liver - MEDICATIONS Home Medications: Ambulatory Orders Medication Instructions Recorded Confirmed Albuterol Sulfate [Proair Hfa 1 - 2 puffs INH Q4H PRN 12/01/20 09/11/22 Inhaler] Azelastine HCl 2 spray NS BID 12/01/20 09/11/22 Carvedilol [Coreg] 12.5 mg PO BID 12/01/20 09/11/22 Flecainide [Tambocar] 50 mg PO Q12H 12/01/20 09/11/22 Montelukast [Singulair] 10 mg PO QPM 12/01/20 09/11/22 Tamsulosin [Flomax] 0.8 mg PO DAILY 12/01/20 09/11/22 Fluticasone Propion/Salmeterol 1 puffs IH BID 11/01/21 09/11/22 [Wixela 250-50 Inhub] Pantoprazole Sodium 40 mg PO DAILY 11/01/21 09/11/22 Tiotropium [place] [Spiriva 2 puffs INH DAILY 02/21/22 09/11/22 Handihaler] Cholecalciferol [Vitamin D3] 50 mcg PO DAILY 09/03/22 09/11/22 Cyanocobalamin (Vitamin B-12) 1,000 mcg PO DAILY 09/03/22 09/11/22 [Vitamin B-12] Ferrous Sulfate 325 mg PO DAILY 09/03/22 09/11/22 Folic Acid 0.8 mg PO DAILY 09/03/22 09/11/22 Multivitamin 1 tab PO DAILY 09/03/22 09/11/22 Sertraline [Zoloft] 50 mg PO DAILY 09/03/22 09/11/22 Apixaban [Eliquis] 5 mg PO BID 09/11/22 09/11/22 Atorvastatin Calcium [Lipitor] 80 mg PO QPM 09/11/22 09/11/22 Dulaglutide [Trulicity] 0.75 mg SQ WE 09/11/22 09/11/22 Metoprolol Succinate [Toprol Xl] 25 mg PO DAILY #30 tab 09/19/22 - LABS Result Diagrams: 09/18/22 04:19 09/19/22 12:02"
== END 2022-09-19 16:20 | disposition home or self-care (01) | DRG 189 ==
LOC: ED 10:03 → MS2 17:09 → OBSVTOIN 09-11 10:27 → ICU 09-13 17:44
PROVIDERS: ADMIT Specialist; ATTEND Specialist
PROC: 0W9B3ZX Drainage of Left Pleural Cavity, Percutaneous Approach, Diagnostic (ICD-10-PCS; principal; 2022-09-11)
DX: J96.01 Acute respiratory failure with hypoxia (principal); I50.33 Acute on chronic diastolic (congestive) heart failure; J44.1 Chronic obstructive pulmonary disease with (acute) exacerbation; J90 Pleural effusion, not elsewhere classified; N17.9 Acute kidney failure, unspecified; I13.0 Hypertensive heart and chronic kidney disease with heart failure and stage 1 through stage 4 chronic kidney disease, or unspecified chronic kidney disease; I48.20 Chronic atrial fibrillation, unspecified; E87.1 Hypo-osmolality and hyponatremia; B34.8 Other viral infections of unspecified site; N18.30 Chronic kidney disease, stage 3 unspecified; D50.9 Iron deficiency anemia, unspecified; E11.65 Type 2 diabetes mellitus with hyperglycemia; I27.81 Cor pulmonale (chronic); E11.51 Type 2 diabetes mellitus with diabetic peripheral angiopathy without gangrene; G47.30 Sleep apnea, unspecified; R59.0 Localized enlarged lymph nodes; I25.10 Atherosclerotic heart disease of native coronary artery without angina pectoris; F17.200 Nicotine dependence, unspecified, uncomplicated; M79.89 Other specified soft tissue disorders; S40.822A Blister (nonthermal) of left upper arm, initial encounter; S41.112A Laceration without foreign body of left upper arm, initial encounter; X58.XXXA Exposure to other specified factors, initial encounter; E78.00 Pure hypercholesterolemia, unspecified; K21.9 Gastro-esophageal reflux disease without esophagitis; K59.09 Other constipation; N40.0 Benign prostatic hyperplasia without lower urinary tract symptoms; H54.7 Unspecified visual loss; H91.90 Unspecified hearing loss, unspecified ear; Z20.822 Contact with and (suspected) exposure to COVID-19; Z79.01 Long term (current) use of anticoagulants; Z79.899 Other long term (current) drug therapy; Z88.8 Allergy status to other drugs, medicaments and biological substances; Z95.0 Presence of cardiac pacemaker
CPT/HCPCS: 32555; 36415; 36600; 71045; 71250; 76770; 80048; 80053; 82310; 82330; 82728; 82803; 82945; 83036; 83540; 83615; 83690; 83735; 83880; 84100; 84157; 84466; 85025; 85610; 87070; 87075; 87150; 87205; 87633; 89051; 93005; 93306; 93971; 94640; 94660; 94761; 96372; 96374; 97162; 99284; 99285; A9270; J1650; J1815; J2060; J7512; J7626